=== PATIENT | male | born 1940 | race Caucasian/White ===

== ENCOUNTER 2016-07-03 12:30 | Inpatient (IN) | payer MEDICARE ==
[2016-07-03] MEDS ORDERED: oxyCODONE/Acetamin 5/325 MG* TAB PO ONE (15:55)
[2016-07-03] MEDS: NS 0.9% 1000 ML* 1,000 ML IV SCH ×2 (15:59→20:08)
[2016-07-03 16:10] LABS: Hematocrit 47 % (42-52); Hemoglobin 15.4 g/dl (14.0-18.0); Mean Corpuscular HGB Conc 33 g/dl (31-36); Mean Corpuscular Hemoglobin 30 pg (27-31); Mean Corpuscular Volume 91 fL (80-94); Mean Platelet Volume 7 um3 (7.4-10.4); Red Blood Count 5.15 10^6/ul (4.0-5.4); Red Cell Distribution Width 14 % (10.5-15); White Blood Count 10.5 10^3/ul (3.5-10.8)
--- NOTE | 2016-07-03 16:13 | RAD ---
HISTORY: Weakness COMPARISONS: CT dated February 18, 2016 VIEWS:1: Single frontal portable view of the chest at 3:46 PM FINDINGS: LINES AND TUBES: None. CARDIOMEDIASTINAL SILHOUETTE: The cardiomediastinal silhouette is normal for portable technique. PLEURA: The costophrenic angles are sharp. No pleural abnormalities are noted. LUNG PARENCHYMA: There is hyperinflation, with emphysematous changes. ABDOMEN: The upper abdomen is clear. There is no subphrenic gas. BONES AND SOFT TISSUES: No bone or soft tissue abnormalities are noted. IMPRESSION: EMPHYSEMA. NO ACTIVE CARDIOPULMONARY DISEASE.
--- NOTE | 2016-07-03 16:16 | RAD ---
Indication: Pain post fall. Comparison: January 22, [address] Technique: Internal and external rotation AP and scapular Y views RIGHT shoulder Report: Bone density appears decreased throughout. Mild spurring at the inferior margin of the acromion. No fracture evident. Normal acromioclavicular and glenohumeral joint alignment. Unremarkable soft tissue contours. IMPRESSION: No traumatic injury evident.
[2016-07-03 16:25] LABS: Albumin 4.4 g/dL (3.2-5.2); BUN/Creatinine Ratio 18.5 (8-20); C Reactive Protein 1.95 mg/L (< 5.00); Calcium 10.2 mg/dL (8.6-10.3); EGFR African American 119.8 (>60); EGFR Non-African American 93.2 (>60); Magnesium 1.9 mg/dL (1.9-2.7); Potassium 4.3 mmol/L (3.5-5.0); Total Bilirubin 0.7 mg/dL (0.2-1.0); Total Protein 7.4 g/dL (6.4-8.9)
--- NOTE | 2016-07-03 16:38 | RAD ---
HISTORY: Generalized weakness COMPARISONS: None TECHNIQUE: Multiple contiguous axial CT scans were obtained of the head without intravenous contrast. FINDINGS: HEMORRHAGE/INFARCT: There is no hemorrhage or acute infarct. MASSES/SHIFT: There is no mass or shift. EXTRA-AXIAL SPACES: There are no extra-axial fluid collections. SULCI AND VENTRICLES: The sulci and ventricles are normal in size and position for the patient's stated age. CEREBRUM: There are no focal parenchymal abnormalities. BRAINSTEM: There are no focal parenchymal abnormalities. CEREBELLUM: There are no focal parenchymal abnormalities. 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 There is calcification of the cavernous segments of internal carotid arteries bilaterally. PARANASAL SINUSES: The paranasal sinuses are clear. ORBITS: The orbits are unremarkable. BONES AND SOFT TISSUE: No bone or soft tissue abnormalities are noted. OTHER: None IMPRESSION: NO ACUTE INTRACRANIAL PATHOLOGY.
[2016-07-03] MEDS ORDERED: Albuterol HFA INHALER* 8 gm MDI INH PRN (17:15)
--- NOTE | 2016-07-03 17:21 | ADMNOTE ---
Subjective Date of Service: 07/03/16 Interval History: ADMISSION HISTORY AND PHYSICAL EXAM: Allergies Allergy/AdvReac Type Severity Reaction Status Date / Time No Known Allergies Allergy Verified 07/03/16 15:07 Home Medications Medication Instructions Recorded Confirmed Type Albuterol HFA INHALER* [Ventolin 2 puff INH Q4H PRN 07/03/16 07/03/16 History HFA Inhaler*] Aspirin EC Low Dose* [Ecotrin EC 81 mg PO DAILY 07/03/16 07/03/16 History Low Dose 81 MG*] Cholecalciferol [Vitamin D-3] 2,000 unit PO DAILY 07/03/16 07/03/16 History Metoprolol Succinate XL TAB* 25 mg PO DAILY 07/03/16 07/03/16 History [Toprol XL TAB*] Omeprazole CAP* [Prilosec CAP* 20 20 mg PO DAILY 07/03/16 07/03/16 History MG] Pravastatin (NF) [Pravachol (NF)] 40 mg PO BEDTIME 07/03/16 07/03/16 History Tiotropium CAP.INH* [Spiriva 1 cap.inh INH DAILY 07/03/16 07/03/16 History CAP.INH*] HPI: The patient was in his usual health until about 10 days ago when he had dysuria and was diagnosed with a UTI. HE was prescribed TMP-SMX which he took for about 5 days. On 06/28/16 he awlike and was very weak in his legs. He called his PCP who told him to go to th ED> He was able to wlak the very short distance to his car and his drove him to the ED. There were no significant abnomalities on lab testing and he was discharge home. There has been no change in his weakness since then. No pain. Family History: Findings - unremarkable. Social History: Findings - Smoker. 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 Lives with his who is his SDM. 5 children. Past Medical History: Findings - Melanom L ear and L lung, both resected 2010. SBO surgery x 2. Prostate bx x 2. Review of Systems - Measurements Intake and Output: Intake and Output Last 24 Hours 07/01/16 07/02/16 07/03/16 07/04/16 06:59 06:59 06:59 06:59 Weight 131 lb - Review of Systems Constitutional Symptoms: Positive: Weight Loss - Lost 5 lbs in 2016, stayed the same weight this year. Dermatology: Positive: Normal HEENT: Positive: Normal Eyes: Positive: Normal Thyroid: Positive: Normal Pulmonary: Positive: COPD Cardiology: Positive: Normal Gastroenterology: Positive: Normal Genital - Urinary: Positive: Other - High PSA in past Hematologic/Lymphatic: Negative: Anemia, Easy Brusing, Hx Leukemia, Hx Lymphoma, Use of Anticoagulant, Use of Antiplatelet Drugs, Other Neurology: Positive: Change in Walking, Unexplained Weakness Psychiatry: Positive: Normal Allergic/Immunologic: Negative: Hx Anaphylaxis, Hx Angioedema, Hx Environmental, Hx Seasonal, Athsma, Hx HIV, Immunocompromise, Swollen Glands LymphNodes, Other Objective Active Medications: Albuterol (Ventolin Hfa Inhaler*) 2 puff INH Q4H PRN PRN Reason: SHORTNESS OF BREATH Aspirin (Aspirin Ec Low Dose*) 81 mg PO DAILY [facility] Sodium Chloride (Ns 0.9% 1000 Ml*) 1,000 mls @ 150 mls/hr IV PER RATE [facility] Last Admin: 07/03/16 15:59 Dose: 150 mls/hr Metoprolol Succinate (Toprol Xl Tab*) 25 mg PO DAILY [facility] Omeprazole (Prilosec Cap*) 20 mg PO DAILY [facility] Pravastatin Sodium (Pravachol (Nf)) 40 mg PO BEDTIME [facility] PRN Reason: Protocol Tiotropium [place] (Spiriva Cap.Inh*) cap INH DAILY [facility] Vital Signs 07/03/16 07/03/16 07/03/16 12:36 12:41 14:35 Temperature 98.0 F 98.2 F 98.8 F Pulse Rate 101 100 85 Respiratory 20 20 18 Rate Blood Pressure 136/69 136/69 110/68 (mmHg) O2 Sat by Pulse 98 98 100 Oximetry 07/03/16 07/03/16 07/03/16 15:03 15:05 15:30 Temperature Pulse Rate 88 94 Respiratory 16 Rate Blood Pressure 144/76 126/79 (mmHg) O2 Sat by Pulse 97 98 Oximetry 07/03/16 07/03/16 15:59 16:00 Temperature Pulse Rate Respiratory 18 23 Rate Blood Pressure 129/102 (mmHg) O2 Sat by Pulse Oximetry Oxygen Devices in Use Now: None Appearance: Alert, partly up on ED stretcher. In good spirits. Looks comfortable. Eyes: No Scleral Icterus Ears/Nose/Mouth/Throat: Clear Oropharnyx, Mucous Membranes Moist Neck: NL Appearance and Movements; NL JVP, No Thyroid Enlargement, Masses Respiratory: Symmetrical Chest Expansion and Respiratory Effort, Clear to Auscultation, Clear to Percussion Cardiovascular: NL Sounds; No Murmurs; No JVD, RRR, No Edema, - Abdominal: NL Sounds; No Tenderness; No Distention, No Hepatosplenomegaly, - Extremities: No Edema, No Clubbing, Cyanosis, - - RUE very painful with passive ROM Skin: No Rash or Ulcers, No Nodules or Sclerosis, - Neurological: Alert and Oriented x 3, NL Sensation, - - He can raise each leg off the bed weakly. Foot flexion and dorsiflexion 4/5. Hand brim stitcher both 4/5. No DTR's elciited. Result Diagrams: 07/04/16 04:54 07/04/16 04:54 Assess/Plan/Problems-Billing Assessment: - Patient Problems (1) Paraplegia Current Visit: Yes Status: Acute Code(s): G82.20 - PARAPLEGIA, UNSPECIFIED SNOMED Code(s): 70765949 Comment: Discussed with Dr. 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 IG started. Tests for MG, Lyme ordered. LP planned. (2) Tobacco abuse Current Visit: Yes Status: Acute Code(s): Z72.0 - TOBACCO USE SNOMED Code( s): 003196397 Comment: Pt advised to quit smoking and avoid second hand smoke. (3) Hx of melanoma of skin Current Visit: Yes Status: Acute Code(s): Z85.820 - PERSONAL HISTORY OF MALIGNANT MELANOMA OF SKIN SNOMED Code(s): 879771445409 Comment: Lung met surgically removed 6 yrs ago.
[2016-07-03 17:22] LABS: Erythrocyte Sed Rate 11 mm/Hr (0-40)
[2016-07-03 17:26] LABS: TSH (Thyroid Stimulating Horm) 0.91 mcIU/mL (0.34-5.60)
--- NOTE | 2016-07-03 17:26 | ED ---
Aida Wolf Anna, scribed for Riley Adams MD on 07/03/16 at 1527 . Complex/Multi-Sys Presentation - HPI Summary HPI Summary: Patient is a 76 y/o male coming to [facility] presenting with constant bilateral leg and arm weakness that began six days ago. He describes the severity of his symptoms as 8/10. He had been taking Bactrim for a UTI and Statin, but after three days, he felt weak and fell down after mowing the lawn and stopped taking the Abx. This was five days ago. He saw his PCP and had an EKG and blood test three days ago with no acute diagnosis. His PCP sent an order for a brain CT, but he has not had one completed yet. He hurt his right shoulder two days ago when he was playing with his dog. He has had some pain in his eyes, along with blurred vision. He is SOB at baseline. Denies rash, fever, neck weakness, CASTRO. He does not feel like he is able to ambulate normally. The pain is not alleviated by the use of ibuprofen. He has taken Percocet before. His history is significant for melanoma and lung CA six years ago. Patient medications have been reviewed this visit. - History Of Current Complaint Chief Complaint: EDWeakness Time Seen by Provider: 07/03/16 15:18 Hx Obtained From: Patient Onset/Duration: Lasting Days, Still Present Severity Currently: Moderate Severity Initially: Moderate Associated Signs And Symptoms: Positive: Weakness, SOB. Negative: Headache, Fever - Allergies/Home Medications Allergies/Adverse Reactions: Allergies Allergy/AdvReac Type Severity Reaction Status Date / Time No Known Allergies Allergy Verified 07/03/16 15:07 Home Medications: Home Medications Albuterol HFA INHALER* [Ventolin HFA Inhaler*] 2 puff INH Q4H PRN 07/03/16 [ History Confirmed 07/03/16] Aspirin EC Low Dose* [Ecotrin EC Low Dose 81 MG*] 81 mg PO DAILY 07/03/16 [ History Confirmed 07/03/16] Cholecalciferol [Vitamin D-3] 2,000 unit PO DAILY 07/03/16 [History Confirmed ] Metoprolol Succinate XL TAB* [Toprol XL TAB*] 25 mg PO DAILY 07/03/16 [History Confirmed 07/03/16] Omeprazole CAP* [Prilosec CAP* 20 MG] 20 mg PO DAILY 07/03/16 [History Confirmed 07/03/16] Pravastatin (NF) [Pravachol (NF)] 40 mg PO BEDTIME 07/03/16 [History Confirmed 07/03/16] Tiotropium CAP.INH* [Spiriva CAP.INH*] 1 cap.inh INH DAILY 07/03/16 [History Confirmed 07/03/16] PMH/Surg Hx/FS Hx/Imm Hx Cardiovascular History: Reports: Hx Hypercholesterolemia, Hx Hypertension Comment Only: Other Cardiovascular Problems/Disorders - pvc Respiratory History: Reports: Hx Chronic Obstructive Pulmonary Disease (COPD) GI History: Reports: Hx Gastroesophageal Reflux Disease, Other GI Disorders - SBO, volvulus - Cancer History Cancer Type, Location and Year: lung ca 2010; malignant melanoma 2009 - Surgical History Surgery Procedure, Year, and Place: left ear/left knee/twisted colon-resection SX/left upper lung lobe removed Infectious Disease History: No Infectious Disease History: Denies: Traveled Outside the [place] in Last 30 Days - Family History Known Family History: Positive: Cardiac Disease - Hx Father CHF - Social History Occupation: Retired Lives: With Family - with Alcohol Use: None Substance Use Type: Reports: None Smoking Status (MU): Heavy Every Day Tobacco Smoker Review of Systems Negative: Fever Eyes: Other - eye pain Positive: Blurred Vision Positive: Shortness Of Breath - baseline Positive: Arthralgia Negative: Rash Positive: Weakness. Negative: Headache All Other Systems Reviewed And Are Negative: Yes Physical Exam Triage Information Reviewed: Yes Vital Signs On Initial Exam: Initial Vitals Temp Pulse Resp BP Pulse Ox 98.0 F 101 20 136/69 98 07/03/16 12:36 07/03/16 12:36 07/03/16 12:36 07/03/16 12:36 07/03/16 12:36 Vital Signs Reviewed: Yes Appearance: Positive: Well-Appearing, No Pain Distress Skin: Positive: Warm, Skin Color Reflects Adequate Perfusion, Dry Head/Face: Positive: Normal Head/Face Inspection Eyes: Positive: EOMI, KALIA ENT: Positive: Normal ENT inspection Neck: Positive: Supple, Nontender Respiratory/Lung Sounds: Positive: Clear to Auscultation, Breath Sounds Present Cardiovascular: Positive: RRR Abdomen Description: Positive: Nontender, Soft Bowel Sounds: Positive: Present Musculoskeletal: Positive: Strength/ROM Intact, Other - Tender R shoulder Neurological: Positive: Alert, Oriented to Person Place, Time, Other - Gernalized weakness in arms and legs, appears left leg worse than right leg. Tender in right shoulder so cannot lift normally. Left arm has some drift when he brings it up. Psychiatric: Positive: Affect/Mood Appropriate - Carl Coma Scale Coma Scale Total: 15 Diagnostics - Vital Signs Vital Signs Temp Pulse Resp BP Pulse Ox 07/03/16 15:05 88 97 07/03/16 15:03 144/76 07/03/16 14:35 98.8 F 85 18 110/68 100 07/03/16 12:41 98.2 F 100 20 136/69 98 07/03/16 12:36 98.0 F 101 20 136/69 98 - Laboratory Lab Results: Lab Results 07/03/16 07/03/16 07/03/16 Range/Units 10:00 10:00 10:00 WBC 10.5 (3.5-10.8) 10^3/ul RBC 5.15 (4.0-5.4) 10^6/ul Hgb 15.4 (14.0-18.0) g/dl Hct 47 (42-52) % MCV 91 (80-94) fL MCH 30 (27-31) pg MCHC 33 (31-36) g/dl RDW 14 (10.5-15) % Plt Count 447 (150-450) 10^3/ul MPV 7 L (7.4-10.4) um3 Neut % (Auto) 69.2 (38-83) % Lymph % (Auto) 21.7 L (25-47) % [place] % (Auto) 7.1 (1-9) % Eos % (Auto) 0.8 (0-6) % Baso % (Auto) 1.2 (0-2) % Absolute Neuts (auto) 7.3 (1.5-7.7) 10^3/ul Absolute Lymphs (auto) 2.3 (1.0-4.8) 10^3/ul Absolute Monos (auto) 0.7 (0-0.8) 10^3/ul Absolute Eos (auto) 0.1 (0-0.6) 10^3/ul Absolute Basos (auto) 0.1 (0-0.2) 10^3/ul Absolute Nucleated RBC 0 10^3/ul Nucleated RBC % 0 ESR 11 (0-40) mm/Hr INR (Anticoag Therapy) 0.88 L (0.89-1.11) APTT 31.7 (26.0-36.3) seconds D-Dimer, Quantitative < 200 (Less Than 230) ng/mL Sodium 134 (133-145) mmol/L Potassium 4.3 (3.5-5.0) mmol/L Chloride 100 L (101-111) mmol/L Carbon Dioxide 25 (22-32) mmol/L Anion Gap 9 (2-11) mmol/L BUN 15 (6-24) mg/dL Creatinine 0.81 (0.67-1.17) mg/dL Est GFR ( Amer) 119.8 (>60) Est GFR (Non-Af Amer) 93.2 (>60) BUN/Creatinine Ratio 18.5 (8-20) Glucose 98 (70-100) mg/dL Lactic Acid (0.5-2.0) mmol/L Calcium 10.2 (8.6-10.3) mg/dL Magnesium 1.9 (1.9-2.7) mg/dL Total Bilirubin 0.70 (0.2-1.0) mg/dL AST 18 (13-39) U/L ALT 18 (7-52) U/L Alkaline Phosphatase 41 (34-104) U/L Total Creatine Kinase 38 (10-223) U/L CK-MB (CK-2) 1.1 (0.6-6.3) ng/mL Troponin I 0.00 (<0.04) ng/mL C-Reactive Protein 1.95 (< 5.00) mg/L Total Protein 7.4 (6.4-8.9) g/dL Albumin 4.4 (3.2-5.2) g/dL Globulin 3.0 (2-4) g/dL Albumin/Globulin Ratio 1.5 (1-3) Lipase 29 (11.0-82.0) U/L Prostate Specific Ag Pending TSH Pending 07/03/16 Range/Units 10:00 WBC (3.5-10.8) 10^3/ul RBC (4.0-5.4) 10^6/ul Hgb (14.0-18.0) g/dl Hct (42-52) % MCV (80-94) fL MCH (27-31) pg MCHC (31-36) g/dl RDW (10.5-15) % Plt Count (150-450) 10^3/ul MPV (7.4-10.4) um3 Neut % (Auto) (38-83) % Lymph % (Auto) (25-47) % [place] % (Auto) (1-9) % Eos % (Auto) (0-6) % Baso % (Auto) (0-2) % Absolute Neuts (auto) (1.5-7.7) 10^3/ul Absolute Lymphs (auto) (1.0-4.8) 10^3/ul Absolute Monos (auto) (0-0.8) 10^3/ul Absolute Eos (auto) (0-0.6) 10^3/ul Absolute Basos (auto) (0-0.2) 10^3/ul Absolute Nucleated RBC 10^3/ul Nucleated RBC % ESR (0-40) mm/Hr INR (Anticoag Therapy) (0.89-1.11) APTT (26.0-36.3) seconds D-Dimer, Quantitative (Less Than 230) ng/mL Sodium (133-145) mmol/L Potassium (3.5-5.0) mmol/L Chloride (101-111) mmol/L Carbon Dioxide (22-32) mmol/L Anion Gap (2-11) mmol/L BUN (6-24) mg/dL Creatinine (0.67-1.17) mg/dL Est GFR ( Amer) (>60) Est GFR (Non-Af Amer) (>60) BUN/Creatinine Ratio (8-20) Glucose (70-100) mg/dL Lactic Acid 1.6 (0.5-2.0) mmol/L Calcium (8.6-10.3) mg/dL Magnesium (1.9-2.7) mg/dL Total Bilirubin (0.2-1.0) mg/dL AST (13-39) U/L ALT (7-52) U/L Alkaline Phosphatase (34-104) U/L Total Creatine Kinase (10-223) U/L CK-MB (CK-2) (0.6-6.3) ng/mL Troponin I (<0.04) ng/mL C-Reactive Protein (< 5.00) mg/L Total Protein (6.4-8.9) g/dL Albumin (3.2-5.2) g/dL Globulin (2-4) g/dL Albumin/Globulin Ratio (1-3) Lipase (11.0-82.0) U/L Prostate Specific Ag TSH Result Diagrams: 07/03/16 10:00 07/03/16 10:00 Lab Statement: Any lab studies that have been ordered have been reviewed, and results considered in the medical decision making process. - Radiology R shoulder XR Xray Interpretation: No Acute Changes Radiology Interpretation Completed By: Radiologist - IMPRESSION: No traumatic injury evident. CXR Xray Interpretation: No Acute Changes Radiology Interpretation Completed By: Radiologist - IMPRESSION: EMPHYSEMA. NO ACTIVE CARDIOPULMONARY DISEASE. - CT Brain CT CT Interpretation: No Acute Changes CT Interpretation Completed By: Radiologist - IMPRESSION: NO ACUTE INTRACRANIAL PATHOLOGY. - EKG 1715 Cardiac Rate: NL - 90 bpm EKG Rhythm: Sinus Rhythm ST Segment: Normal EKG Interpretation: PACs Re-Evaluation - Re-Evaluation First Eval Re-Evaluation Time: 16:58 Comment: Discussed results and plan of care with patient. Patient is agreeable with plan. Complex Multi-Symp Course/Dx Course Of Treatment: NO CRITICAL CARE TIME Assessment/Plan: ADMIT HOSPITALIST STABLE. - Diagnoses Provider Diagnoses: Weakness, Shoulder pain, right Discharge - Discharge Plan Condition: Stable Disposition: ADMITTED TO [facility] Referrals: Surekha Trinidad BARREL RIFLER HOOK [Primary Care Provider] - The documentation as recorded by the Aida barboza Anna accurately reflects the service I personally performed and the decisions made by me, Riley Adams MD.
[2016-07-03] MEDS ORDERED: Enoxaparin(*) 40 MG/0.4 ML SYR SUBCUT SCH (18:00)
[2016-07-03] MEDS ORDERED: Spiriva Inhaler DEVICE* 1 EACH DEVICE INH ONE (18:00)
[2016-07-03] MEDS ORDERED: IMMUNE GLOBULN IV SCH (19:00)
[2016-07-03] MEDS: oxyCODONE/Acetamin 5/325 MG* TAB PO PRN ×3 (20:16→23:52)
[2016-07-03] MEDS ORDERED: Atorvastatin* 10 MG TAB PO SCH (21:00)
--- NOTE | 2016-07-03 21:15 | CONS ---
NEUROLOGY CONSULTATION: DATE OF CONSULTATION: 07/03/16 LOCATION: He is in the emergency room to be admitted. REFERRING PROVIDER: Dr. Rodriguez. CHIEF COMPLAINT: Weakness. HISTORY OF PRESENT ILLNESS: Gregory Valdovinos is a 76-year-old right handed man who was in his usual state of health last Thursday when he woke up and noticed numbness and tingling in his hands. Over the course of the day, he felt like his legs and hands were getting weak. By the end of the day or perhaps the following day, he was getting numbness and tingling in his feet. He had felt fine the day before and in fact, had mowed the lawn. Over the course of the next several days he got weaker and weaker. He started using a cane. He did not fall, but he felt very unsteady. He ultimately presented to the emergency room today. He denies shortness of breath or difficulty swallowing. He denies difficulty emptying his bladder or lightheadedness or faints. He was sick at the week prior to onset of symptoms with what felt like a urinary tract infection. He was treated with sulfa antibiotics as an outpatient. He was also sick the week before that with an upper respiratory infection which he and his think was probably viral. There is no history of recent immunizations or surgeries. There is no prior history of weakness or numbness in his limbs. PAST MEDICAL HISTORY: Notable for adenocarcinoma of the lung treated with resection and followed for 6 years without evidence of recurrent disease. He has pretty bad COPD and pulmonary hypertension from prior records. He is a recovering alcoholic, having not drunk in many years. He is an ongoing tobacco smoker. He has been evaluated for chest pain and felt to have pericarditis. MEDICATIONS AT HOME: 1. Pravastatin 40 mg p.o. daily. 2. Metoprolol XL 25 mg p.o. daily. 3. Vitamin D3 2000 units p.o. daily. 4. Prilosec 20 mg p.o. daily. 5. Spiriva cap 1 p.o. daily. 6. Albuterol inhaler 2 puffs q.4 h. p.r.n. shortness of breath. 7. Aspirin 81 mg p.o. daily. ALLERGIES: He does not have any drug allergies. REVIEW OF SYSTEMS: Notable for recent injury to his shoulder when he was having a tugging match with his dog and fell on it. Shoulder x-ray earlier today was normal. He feels his breathing is about what he usually is. He does not exercise much. He drinks Ensure to keep his weight up and that has been a chronic problem. He has not had any fevers, sweats or chills. He has not had any change in bowel function. He normally feels steady on his feet until the last 5 to 6 days with the onset of this new syndrome. No recent history of head trauma, but he had head trauma as a child. He had a crush injury to his left foot when a car fell on it when he was a youth. PHYSICAL EXAM: He is very thin, but reasonably well hydrated. Temperature 99.1 temporally, blood pressure 130/78, heart rate is in the 80s and in sinus on the monitor, respiratory rate is 18, oxygen saturation is 98% on room air. He has kyphoscoliosis. Lungs reveal diffuse wheezes. Distant heart tones are heard and I do not hear any murmurs. Carotid pulses are present and there are no cervical bruits. Oral mucosa is moist and atraumatic. He has a partial fusion of the left ankle. There is no pedal edema. Head is atraumatic. Neurologic Exam: Pupils, fundi, and eye movements are normal. Visual lloyd are full to confrontation. There is no ptosis. Facial musculature is symmetric and strong. Eye closure strength is normal. Facial sensation to light touch is normal. Palate and tongue appear normal. Speech is clear. He has a pretty good cough. Palate rises symmetrically. Motor exam reveals strength limited about the right shoulder due to pain. He is not able to abduct it because of pain. Strength is otherwise rated left deltoid 4+, biceps 4/4-, triceps 4-/4, wrist extensors 4/4, finger flexors 5/5, finger extensors 4-/4, hip flexors 4/4-, quads 5/5, hamstrings 4/4, plantar flexors 4+/5-. Sensory exam is notable for absent vibration in the toes, to normal at the ankles. He has mild vibratory loss in the fingers. He has diminished proprioceptive sensation in the right great toe, to a lesser extent the left great toe. He has diminished pin discrimination to just above the ankles bilaterally. Light touch is absent in the feet to the mid feet. Reflexes are absent in upper extremities, absent at the right knee, grade 1 at the left knee. Ankle reflexes are absent. Plantar responses are flexor bilaterally. There is no spasticity in the legs. [id number] maneuver is limited because of his pain in his shoulder, but seems otherwise normal. He is alert and oriented and a good detailed historian. Memory seems intact and language is fluent. He has good attention, concentration, and adequate fund of knowledge. DIAGNOSTIC STUDIES/LAB DATA: Includes a CBC from 07/03/16 which is normal. Sedimentation rate 11. INR low normal at 0.88, PTT 31.7, D-dimer less than 200. Chemistry profile notable for chloride of 100 and otherwise unremarkable. Lactic acid 1.6. PSA elevated at 28.09. TSH normal at 0.91. Magnesium, calcium, and sodium are all normal. He had a CT of the brain which I reviewed and which looks normal. Chest x-ray reveals severe emphysematous changes. 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 I will need a spinal tap to look for the typical protein and cell dissociation. I think that can wait till tomorrow. I would like to start him on IVIg tonight. He weighs 130 pounds, so at 2 g/kg, I calculate a total of 120 g. We will distribute it over 3 days at 40 g per day. I have alerted Pharmacy to get it started as soon as possible. I will plan on doing electrodiagnostic studies on him tomorrow afternoon. I will check a peripheral blood for Lyme and myasthenia gravis antibodies and also plan to check spinal fluid studies depending upon the results of the cell count proteins. I have discussed my impression with Braxton Dumont, he is covering for Dr. Rodriguez this evening. He will be admitted to intensive care unit and have a bedside spirometry every 4 hours. He should be checked for postvoid residuals and urinary retention. He should also have his cardiac rhythm and blood pressure monitored closely at least for the next few days. I have explained my impression to Mr. Valdovinos and his . I have explained the importance of admission for intravenous immunoglobulin therapy. I told that in some cases, patients progressively become severely weak such that they cannot walk or breathe and require mechanical ventilation. At this point 5 to 6 days out, it seems unlikely but remains a possibility. [id number]/[facility] #: [id number] MORAIMA
[2016-07-03] MEDS: Gabapentin CAP(*) 100 MG PO SCH (21:54)
[2016-07-03] MEDS ORDERED: Ondansetron INJ* 2 MG/ML VIAL ONE (23:42)
[2016-07-03] MEDS: Ondansetron INJ* 2 MG/ML VIAL IV PRN (23:46)
[2016-07-04] MEDS ORDERED: PROCHLORPERAZINE INJ 5 MG/ML 2 ML VIAL IV PRN (00:11)
[2016-07-04] MEDS: NS 0.9% 1000 ML* 1,000 ML IV SCH ×4 (00:19→23:22)
[2016-07-04] MEDS: Morphine INJ* 2 MG/ML 1 ML SYRINGE IV PRN ×4 (01:08→23:19)
[2016-07-04 05:18] LABS: Hematocrit 39 % (42-52); Hemoglobin 12.7 g/dl (14.0-18.0); Mean Corpuscular HGB Conc 33 g/dl (31-36); Mean Corpuscular Hemoglobin 30 pg (27-31); Mean Corpuscular Volume 92 fL (80-94); Mean Platelet Volume 7 um3 (7.4-10.4); Red Blood Count 4.22 10^6/ul (4.0-5.4); Red Cell Distribution Width 14 % (10.5-15); White Blood Count 8.3 10^3/ul (3.5-10.8)
[2016-07-04 05:32] LABS: BUN/Creatinine Ratio 14.5 (8-20); Calcium 8.3 mg/dL (8.6-10.3); EGFR African American 128.9 (>60); EGFR Non-African American 100.3 (>60); Potassium 4.2 mmol/L (3.5-5.0)
[2016-07-04] MEDS: PROCHLORPERAZINE INJ 5 MG/ML 2 ML VIAL ONE ×3 (06:21→08:29)
[2016-07-04] MEDS: Omeprazole CAP* 20 MG PO SCH (09:08)
[2016-07-04] MEDS: Gabapentin CAP(*) 100 MG PO SCH ×2 (09:08→22:01)
[2016-07-04] MEDS: Aspirin EC Low Dose* 81 MG TAB.EC PO SCH (09:08)
--- NOTE | 2016-07-04 09:59 | PN ---
Progress Note - Progress Note Note: Time spent on patient care over 45 minutes.
[2016-07-04] MEDS: Metoprolol Succinate XL TAB* 25 MG PO SCH (10:24)
--- NOTE | 2016-07-04 10:52 | RAD ---
Indication: Bilateral leg weakness. Poor pulses. Comparison: September 07, 2007 Technique: Physiologic assessment with segmental limb pressures and calculated ankle-brachial indices. Doppler and Pulse Volume Recording. REPORT: The right ankle brachial index is 1.03 within normal range. Normal triphasic waveforms throughout the RIGHT lower extremity. Unremarkable thigh, calf, and ankle pulse volume recordings. The left ankle brachial index is 1.08 within normal range. Unremarkable triphasic waveforms throughout the LEFT lower extremity. Unremarkable thigh, calf, and ankle pulse volume recordings. IMPRESSION: No physiologic evidence for hemodynamic significant arterial inflow disease or intrinsic stenoses within the lower extremities.
[2016-07-04] MEDS: Tiotropium CAP.INH* CAP.INH/18 MCG INH SCH (14:28)
--- NOTE | 2016-07-04 14:57 | RAD ---
INDICATION: Elevated PSA. Leg weakness. Question metastasis. History of lung cancer and melanoma. COMPARISON: September 24, 2010 PET scan. TECHNIQUE: 20.700 mCi of Tc-99m MDP were injected IV. The whole body was scanned in anterior and posterior projections approximately 2 hours after the injection. FINDINGS: Negative for suspicious increased uptake at the axial or appendicular skeleton. Minimal increased activity flanking the endplates at the lumbar sacral spine most consistent with reactive change secondary to degenerative spondylosis. LEFT forearm injection site noted. The kidneys are normal in size and position and without evidence for obstructive uropathy. IMPRESSION: No evidence for bone metastasis. CPT II: CPT II Codes: 3570F
--- NOTE | 2016-07-04 16:59 | RAD ---
HISTORY: Paraparesis COMPARISONS: None TECHNIQUE: The following sequences were obtained of the cervical spine: Sagittal T1- and T2-weighted images, sagittal STIR images, axial T2 and gradient echo images. FINDINGS: BRAIN AND SPINAL CORD: The visualized spinal cord is normal in caliber, position, and signal intensity. The visualized portion of the brain is unremarkable. The cerebellar tonsils are normal in position. ALIGNMENT: The alignment is normal. VERTEBRAL BODIES: There is multilevel anterolateral marginal osteophyte formation. There are Modic type I reactive endplate changes at C3-C4 and C5-C6. There is a persistent subdental synchondrosis. JOINTS: There is uncovertebral and facet osteoarthritis. There is osteoarthritis of the atlantoaxial articulation MUSCULATURE: Unremarkable INTERVERTEBRAL DISCS: There is diffuse loss of intervertebral disc height and T2 signal throughout the spine. AXIAL IMAGES: C2-C3: There is facet hypertrophy. There is no significant neural foraminal narrowing or central canal stenosis. C3-C4: There is a broad-based disc osteophyte complex with ligamentous and facet hypertrophy. There is severe bilateral neural foraminal narrowing. There is moderate to severe narrowing of the central canal. C4-C5: There is a broad-based disc osteophyte complex with bilateral uncovertebral and facet hypertrophy. There is ligamentous hypertrophy. There is mild narrowing of the central canal. There is mild bilateral neural foraminal narrowing. C5-C6: There is bilateral uncovertebral and facet hypertrophy. There is ligamentous hypertrophy. There is mild narrowing of the central canal. There is mild bilateral neural foraminal narrowing. C6-C7: There is a broad-based disc osteophyte convex bilateral uncovertebral and facet hypertrophy. There is severe left and moderate right neural foraminal narrowing. There is moderate to severe narrowing of the central canal. C7-T1: There is bilateral uncovertebral facet hypertrophy. There is severe bilateral neural foraminal narrowing. There is no significant central canal stenosis SOFT TISSUES: The visualized soft tissues of the neck are unremarkable. OTHER: None. IMPRESSION: 1. DEGENERATIVE DISC DISEASE AND OSTEOARTHRITIS. 2. THERE IS MODERATE TO SEVERE NARROWING OF THE CENTRAL CANAL AT C3-C4 AND C6-C7. THERE IS MILD NARROWING AT C4-C5 AND C5-C6. 3. THERE IS MULTILEVEL NEURAL FORAMINAL NARROWING DESCRIBED ABOVE
--- NOTE | 2016-07-04 17:49 | CONS ---
NEUROLOGY CONSULTATION: DATE OF CONSULT: 07/04/16 HOSPITALIST: Dr. Rodriguez. LOCATION: He is in ICU bed 6. CHIEF COMPLAINT: Weakness. INTERVAL HISTORY: Since yesterday, Mr. Valdovinos feels about the same. The difference is he has some aching pain in both legs, which started last night. He does not have headache or neck pain. He feels his weakness is about the same. MEDICATIONS: Medications are reviewed and he is on: 1. Gabapentin 100 mg p.o. b.i.d. 2. IVIG 40 g per day for 3 days for a total of 120 g. 3. Morphine 2 mg IV q. 4 p.r.n. leg pain. 4. Ondansetron 4 mg q. 4h. p.r.n. nausea. 5. Prochlorperazine 5 mg q. 6h. p.r.n. nausea. 6. Tiotropium inhaler one day. 7. Metoprolol 25 mg p.o. day. PHYSICAL EXAM: He is thin but well-hydrated. Temperature 98.4 temporal, blood pressure 115/60, heart rate in the 70s and regular, respirations most recently 19. His negative inspiratory forces remain stable and within normal limits. Lungs are clear. Neurologically, eye closure strength and eye movements are normal. Speech is soft but clear without dysarthria. There is no spasticity in the limbs. He is areflexic today. Plantar responses are flexor. Strength is rated left deltoid 4, biceps 4, triceps 4, wrist extensor 4, finger flexors 5-. He has grade 4+ right biceps and triceps weakness. He still has pain around the deltoid. Wrist extensors are at least 5- on the right. In the lower extremities he has grade 4- hip flexor weakness bilaterally, strong quadriceps, hamstrings are weak in a grade IV range. Ankle dorsiflexes are closer to 4+ to 5-. He is alert and oriented to person, place, and time. Memory is intact and language is fluent. DIAGNOSTIC STUDIES/LAB DATA: Laboratory data includes a normal CBC today other than a hemoglobin dropped to 12.7 from 15.4. Platelet count remains normal at 331. Sedimentation rate yesterday was 11. Chemistries today notable for sodium of 129 down from 134 yesterday, calcium is down to 8.3 from 10.2 yesterday. His PSA was elevated yesterday at 28.97. TSH normal at 0.91. Creatinine kinase yesterday normal at 38. He had a bone scan earlier today interpreted as normal other than some increased uptake in the lumbar spine. He had a PVR study of the lower extremity vasculature, which was normal. He had nerve conduction studies earlier today which were fairly unremarkable. 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 Some of the F waves were unreadable due to artifact, but those that were obtainable were normal. His motor distal latencies also were normal. 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 Not a 100 % certain but he appears to have 6 days of progressive weakness and sensory disturbance and he is areflexic. 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 Lumbar puncture is planned for tomorrow. He was on Lovenox and so it had to be put off, which is fine as the yield will increase if we give it another couple of days. We may need to repeat his nerve conduction studies next week if diagnosis remains uncertain. I spoke with Dr. Rodriguez and he has ordered an MRI of the cervical spine, which I agree with. Dr. Sky will be covering over the weekend and I will sign out the case to him. [id number]/[facility] #: [id number] [facility]ITAL[facility]yaan
[2016-07-04 18:18] LABS: Body Fluid Appearance Clear
[2016-07-04 18:19] LABS: BF RBC Count #1 3; BF RBC Count #2 3; BF WBC Count #1 7; BF WBC Count #2 6; Body Fluid WBC 7 /mcL; RBC counts within 6%? Yes; WBC counts within 15%? Yes
[2016-07-04 18:39] LABS: CSF Glucose 73 mg/dL (40-70)
[2016-07-04 18:53] LABS: Body Fluid Total Cells Counted 100
[2016-07-04] MEDS: IMMUNE GLOBULN IV SCH (19:13)
[2016-07-04] MEDS: Ondansetron INJ* 2 MG/ML VIAL IV PRN (19:41)
[2016-07-05] MEDS: Morphine INJ* 2 MG/ML 1 ML SYRINGE IV PRN (04:33)
--- NOTE | 2016-07-05 04:35 | PRO ---
PROCEDURE REPORT: DATE OF PROCEDURE: 07/04/16 - ROOM #[id number] PREOPERATIVE DIAGNOSIS: New-onset neuro deficits. HISTORY: I had the pleasure of seeing Mr. Gregory Valdovinos for a consultation for lumbar puncture. The patient is a 76-year-old male who presents for new onset of leg weakness. I was contacted by Dr. Rodriguez for consultation for lumbar puncture. The patient notes sudden onset of leg weakness in the setting of recent UTI. The lumbar puncture is to rule out Guillain-[place] syndrome. The patient denies use of anticoagulants at home or in the hospital. He was recently given a dose of Lovenox, but this was on 07/03/16 at 6 p.m. He has not since had any anticoagulation. He has no additional history of bleeding or clotting disorders or otherwise coagulopathies. He denies any recent fever or chills. The risks and benefits of the lumbar puncture were explained to the patient who verbalized understanding and elected to proceed. DESCRIPTION OF PROCEDURE: He was placed in a sitting position. His back was prepped and draped in the usual sterile fashion. A 25-gauge 1.5 inch needle was used to instill 3 cc of 1% plain for skin infiltration. Subsequently, a 20- gauge introducer along with a 25-gauge Pencan needle was used to access the intrathecal space. The patient tolerated the procedure well with no focal neurological deficits or subsequent paraesthesias. A total of 12 cc of CSF was aspirated from the intrathecal space and sent to the lab for further analysis. The CSF was free flowing and crystal clear in appearance. He tolerated the procedure well and his back was subsequently dressed with a Band-Aid. He was subsequently returned to his room in ICU with no further complications. His MRI of his head as well as his neck showed no major abnormalities or space- occupying lesions. [id number]/[facility] #: [id number] [facility]
[2016-07-05] MEDS: NS 0.9% 1000 ML* 1,000 ML IV SCH ×3 (06:03→21:56)
[2016-07-05] MEDS: Metoprolol Succinate XL TAB* 25 MG PO SCH (07:42)
[2016-07-05] MEDS: Aspirin EC Low Dose* 81 MG TAB.EC PO SCH (07:43)
[2016-07-05] MEDS: Omeprazole CAP* 20 MG PO SCH (07:43)
[2016-07-05] MEDS: Gabapentin CAP(*) 100 MG PO SCH ×2 (07:43→20:57)
--- NOTE | 2016-07-05 07:43 | PN ---
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 He says hand tingling has resolved, legs have some achiness and numbness vs tingling, no resp or bulbar issues. Chem ok save Na 129 (was 134 admit and last week); PSA 28 (was 9 a year ago); CBC, LFTs, cpk, tsh, esr are all ok CSF w/ 7 wbc, 3 rbc, G 73, P 93 His ncs had a modest sensory neuropathy only per d/w dr Bond, w/o any overt demyelinating features, and in the context of relatively early study timing vis a vis symptom onset, and h/o remote etoh overuse Head CT neg Mri cervical spine reviewed and has moderate c4-5 and c6-7 stenosis but no cord signal change Cxr w/ copd, bone scan and LE arterial studies neg Exam with intact eye closure, cheek puff, lip closure, tongue strength, eye movements; neck ext intact vs neck flexors 4/5 vs pain limited; limbs diffusely 4/5 (right shoulder pain/range of motion ltd) except ankle DF 5-; areflexic; vibration and touch grossly intact i/p: 76 yo with copd, remote etoh, remote melanoma (ear and lung lesions status post resection), p/w a week of progressive sensory loss, weakness and reflex loss, with onset post UTI; history, 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 rx w/ IVIG. Monitor for respiratory issues and dysautonomia, hyponatremia (may need to fluid restrict if developing SIADH). PT/OT and eval for rehab needs.
[2016-07-05] MEDS ORDERED: Acetaminophen TAB* 325 MG PO PRN (07:56)
--- NOTE | 2016-07-05 08:24 | PN ---
Subjective Date of Service: 07/05/16 Interval History: Patient states his hand tingling is gone, no other change. Family History: Findings - unremarkable. Social History: Findings - Smoker. 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 Lives with his who is his SDM. 5 children. Past Medical History: Findings - Melanom L ear and L lung, both resected 2010. SBO surgery x 2. Prostate bx x 2. Objective Active Medications: Acetaminophen (Tylenol Tab*) 650 mg PO Q4H PRN PRN Reason: TEMPERATURE OVER 102 F Albuterol (Ventolin Hfa Inhaler*) 2 puff INH Q4H PRN PRN Reason: SHORTNESS OF BREATH Aspirin (Aspirin Ec Low Dose*) 81 mg PO DAILY [facility] Last Admin: 07/05/16 07:43 Dose: 81 mg Gabapentin (Neurontin Cap(*)) 100 mg PO BID [facility] Last Admin: 07/05/16 07:43 Dose: 100 mg Sodium Chloride (Ns 0.9% 1000 Ml*) 1,000 mls @ 150 mls/hr IV PER RATE [facility] Last Admin: 07/05/16 06:03 Dose: 150 mls/hr Immune Globulin 40 gm/ IV (Solution) 800 mls @ 0 mls/hr IV 2000 [facility]; Per Protocol PRN Reason: Protocol Stop: 07/05/16 20:01 Last Admin: 07/04/16 19:13 Dose: 36 mls/hr Metoprolol Succinate (Toprol Xl Tab*) 25 mg PO DAILY [facility] Last Admin: 07/05/16 07:42 Dose: 25 mg Morphine Sulfate (Morphine Inj (Syringe)*) 2 mg IV Q4H PRN PRN Reason: PAIN - MILD Last Admin: 07/05/16 04:33 Dose: 2 mg Omeprazole (Prilosec Cap*) 20 mg PO DAILY [facility] Last Admin: 07/05/16 07:43 Dose: 20 mg Ondansetron HCl (Zofran Inj*) 4 mg IV Q4H PRN PRN Reason: NAUSEA Last Admin: 07/04/16 19:41 Dose: 4 mg Oxycodone/Acetaminophen (Percocet 5/325 Tab*) 1 tab PO Q4H PRN PRN Reason: PAIN Last Admin: 07/03/16 23:52 Dose: 1 tab Prochlorperazine Edisylate (Compazine Inj*) 5 mg IV Q6H PRN PRN Reason: NAUSEA/VOMITING Last Admin: 07/04/16 00:14 Dose: 5 mg Tiotropium Vance (Spiriva Cap.Inh*) 1 cap INH DAILY [facility] Last Admin: 07/04/16 14:28 Dose: 1 cap Vital Signs 07/04/16 07/04/16 07/04/16 10:00 10:30 11:00 Temperature Pulse Rate 73 82 71 Respiratory 15 19 14 Rate Blood Pressure 102/56 113/59 106/60 (mmHg) O2 Sat by Pulse 98 96 95 Oximetry 07/04/16 07/04/16 07/04/16 11:30 12:00 12:09 Temperature 98.4 F Pulse Rate 71 83 Respiratory 14 19 Rate Blood Pressure 107/57 123/59 (mmHg) O2 Sat by Pulse 93 98 Oximetry 07/04/16 07/04/16 07/04/16 12:30 13:00 14:20 Temperature Pulse Rate 75 75 Respiratory 16 14 11 Rate Blood Pressure 115/60 114/61 (mmHg) O2 Sat by Pulse 97 97 Oximetry 07/04/16 07/04/16 07/04/16 14:25 14:30 15:00 Temperature Pulse Rate 91 79 Respiratory 19 20 14 Rate Blood Pressure 103/58 97/48 (mmHg) O2 Sat by Pulse 94 96 Oximetry 07/04/16 07/04/16 07/04/16 15:30 15:44 16:00 Temperature 99.7 F Pulse Rate 84 72 Respiratory 18 14 Rate Blood Pressure 103/53 98/51 (mmHg) O2 Sat by Pulse 95 97 Oximetry 07/04/16 07/04/16 07/04/16 17:00 17:04 17:07 Temperature Pulse Rate 84 Respiratory 16 20 Rate Blood Pressure 116/68 (mmHg) O2 Sat by Pulse 93 Oximetry 07/04/16 07/04/16 07/04/16 17:30 18:00 18:30 Temperature Pulse Rate 83 81 78 Respiratory 18 20 18 Rate Blood Pressure 112/61 111/59 112/55 (mmHg) O2 Sat by Pulse 96 94 92 Oximetry 07/04/16 07/04/16 07/04/16 19:00 19:16 19:30 Temperature Pulse Rate 83 87 79 Respiratory 20 18 19 Rate Blood Pressure 118/68 107/62 111/58 (mmHg) O2 Sat by Pulse 94 98 96 Oximetry 07/04/16 07/04/16 07/04/16 19:32 19:33 19:45 Temperature 99.5 F Pulse Rate 85 Respiratory 21 18 Rate Blood Pressure 107/59 (mmHg) O2 Sat by Pulse 96 Oximetry 07/04/16 07/04/16 07/04/16 20:00 20:15 20:30 Temperature Pulse Rate 79 78 78 Respiratory 13 13 14 Rate Blood Pressure 105/58 113/51 110/53 (mmHg) O2 Sat by Pulse 91 94 90 Oximetry 07/04/16 07/04/16 07/04/16 20:45 21:00 21:15 Temperature Pulse Rate 76 74 74 Respiratory 14 14 14 Rate Blood Pressure 109/51 110/57 110/54 (mmHg) O2 Sat by Pulse 96 98 99 Oximetry 07/04/16 07/04/16 07/04/16 21:30 22:00 22:30 Temperature Pulse Rate 75 85 79 Respiratory 13 19 15 Rate Blood Pressure 110/57 115/66 112/53 (mmHg) O2 Sat by Pulse 98 97 94 Oximetry 07/04/16 07/04/16 07/04/16 23:00 23:19 23:30 Temperature Pulse Rate 73 98 84 Respiratory 16 21 19 Rate Blood Pressure 119/52 108/57 (mmHg) O2 Sat by Pulse 97 96 95 Oximetry 07/04/16 07/05/16 07/05/16 23:57 00:00 00:01 Temperature 99.2 F Pulse Rate 74 75 Respiratory 14 15 Rate Blood Pressure 113/56 (mmHg) O2 Sat by Pulse 96 96 Oximetry 07/05/16 07/05/16 07/05/16 00:30 01:00 01:30 Temperature Pulse Rate 78 74 72 Respiratory 19 15 14 Rate Blood Pressure 120/54 122/56 116/62 (mmHg) O2 Sat by Pulse 99 100 100 Oximetry 07/05/16 07/05/16 07/05/16 02:00 02:30 03:00 Temperature Pulse Rate 74 76 75 Respiratory 14 16 15 Rate Blood Pressure 118/57 122/56 117/59 (mmHg) O2 Sat by Pulse 100 100 100 Oximetry 07/05/16 07/05/16 07/05/16 03:30 03:31 04:00 Temperature 100.0 F Pulse Rate 77 78 Respiratory 15 15 Rate Blood Pressure 116/62 119/59 (mmHg) O2 Sat by Pulse 99 99 Oximetry 07/05/16 07/05/16 07/05/16 04:30 04:33 05:00 Temperature Pulse Rate 89 82 Respiratory 17 18 14 Rate Blood Pressure 117/62 113/54 (mmHg) O2 Sat by Pulse 97 93 Oximetry 07/05/16 07/05/16 07/05/16 05:30 06:00 06:30 Temperature Pulse Rate 80 85 80 Respiratory 14 15 17 Rate Blood Pressure 114/54 112/59 114/58 (mmHg) O2 Sat by Pulse 94 92 93 Oximetry 07/05/16 07:25 Temperature 101.4 F Pulse Rate Respiratory Rate Blood Pressure (mmHg) O2 Sat by Pulse Oximetry Oxygen Devices in Use Now: None Appearance: Alert, partly up in bed. In good spirits. Looks comfortable. Eyes: No Scleral Icterus Neck: NL Appearance and Movements; NL JVP, No Thyroid Enlargement, Masses Extremities: No Edema, No Clubbing, Cyanosis, - Skin: No Rash or Ulcers, No Nodules or Sclerosis, - Neurological: Alert and Oriented x 3, NL Sensation, - - UE and LE strength about 4/5. No tremor. Result Diagrams: 07/04/16 04:54 07/04/16 04:54 Additional Lab and Data: Lab Results 07/03/16 07/03/16 07/03/16 Range/Units 10:00 10:00 10:00 WBC 10.5 (3.5-10.8) 10^3/ul RBC 5.15 (4.0-5.4) 10^6/ul Hgb 15.4 (14.0-18.0) g/dl Hct 47 (42-52) % MCV 91 (80-94) fL MCH 30 (27-31) pg MCHC 33 (31-36) g/dl RDW 14 (10.5-15) % Plt Count 447 (150-450) 10^3/ul MPV 7 L (7.4-10.4) um3 Neut % (Auto) 69.2 (38-83) % Lymph % (Auto) 21.7 L (25-47) % [place] % (Auto) 7.1 (1-9) % Eos % (Auto) 0.8 (0-6) % Baso % (Auto) 1.2 (0-2) % Absolute Neuts (auto) 7.3 (1.5-7.7) 10^3/ul Absolute Lymphs (auto) 2.3 (1.0-4.8) 10^3/ul Absolute Monos (auto) 0.7 (0-0.8) 10^3/ul Absolute Eos (auto) 0.1 (0-0.6) 10^3/ul Absolute Basos (auto) 0.1 (0-0.2) 10^3/ul Absolute Nucleated RBC 0 10^3/ul Nucleated RBC % 0 ESR 11 (0-40) mm/Hr INR (Anticoag Therapy) 0.88 L (0.89-1.11) APTT 31.7 (26.0-36.3) seconds D-Dimer, Quantitative < 200 (Less Than 230) ng/mL Sodium 134 (133-145) mmol/L Potassium 4.3 (3.5-5.0) mmol/L Chloride 100 L (101-111) mmol/L Carbon Dioxide 25 (22-32) mmol/L Anion Gap 9 (2-11) mmol/L BUN 15 (6-24) mg/dL Creatinine 0.81 (0.67-1.17) mg/dL Est GFR ( Amer) 119.8 (>60) Est GFR (Non-Af Amer) 93.2 (>60) BUN/Creatinine Ratio 18.5 (8-20) Glucose 98 (70-100) mg/dL Lactic Acid (0.5-2.0) mmol/L Calcium 10.2 (8.6-10.3) mg/dL Magnesium 1.9 (1.9-2.7) mg/dL Total Bilirubin 0.70 (0.2-1.0) mg/dL AST 18 (13-39) U/L ALT 18 (7-52) U/L Alkaline Phosphatase 41 (34-104) U/L Total Creatine Kinase 38 (10-223) U/L CK-MB (CK-2) 1.1 (0.6-6.3) ng/mL Troponin I 0.00 (<0.04) ng/mL C-Reactive Protein 1.95 (< 5.00) mg/L Total Protein 7.4 (6.4-8.9) g/dL Albumin 4.4 (3.2-5.2) g/dL Globulin 3.0 (2-4) g/dL Albumin/Globulin Ratio 1.5 (1-3) Lipase 29 (11.0-82.0) U/L Prostate Specific Ag Pending TSH Pending 07/03/16 Range/Units 10:00 WBC (3.5-10.8) 10^3/ul RBC (4.0-5.4) 10^6/ul Hgb (14.0-18.0) g/dl Hct (42-52) % MCV (80-94) fL MCH (27-31) pg MCHC (31-36) g/dl RDW (10.5-15) % Plt Count (150-450) 10^3/ul MPV (7.4-10.4) um3 Neut % (Auto) (38-83) % Lymph % (Auto) (25-47) % [place] % (Auto) (1-9) % Eos % (Auto) (0-6) % Baso % (Auto) (0-2) % Absolute Neuts (auto) (1.5-7.7) 10^3/ul Absolute Lymphs (auto) (1.0-4.8) 10^3/ul Absolute Monos (auto) (0-0.8) 10^3/ul Absolute Eos (auto) (0-0.6) 10^3/ul Absolute Basos (auto) (0-0.2) 10^3/ul Absolute Nucleated RBC 10^3/ul Nucleated RBC % ESR (0-40) mm/Hr INR (Anticoag Therapy) (0.89-1.11) APTT (26.0-36.3) seconds D-Dimer, Quantitative (Less Than 230) ng/mL Sodium (133-145) mmol/L Potassium (3.5-5.0) mmol/L Chloride (101-111) mmol/L Carbon Dioxide (22-32) mmol/L Anion Gap (2-11) mmol/L BUN (6-24) mg/dL Creatinine (0.67-1.17) mg/dL Est GFR ( Amer) (>60) Est GFR (Non-Af Amer) (>60) BUN/Creatinine Ratio (8-20) Glucose (70-100) mg/dL Lactic Acid 1.6 (0.5-2.0) mmol/L Calcium (8.6-10.3) mg/dL Magnesium (1.9-2.7) mg/dL Total Bilirubin (0.2-1.0) mg/dL AST (13-39) U/L ALT (7-52) U/L Alkaline Phosphatase (34-104) U/L Total Creatine Kinase (10-223) U/L CK-MB (CK-2) (0.6-6.3) ng/mL Troponin I (<0.04) ng/mL C-Reactive Protein (< 5.00) mg/L Total Protein (6.4-8.9) g/dL Albumin (3.2-5.2) g/dL Globulin (2-4) g/dL Albumin/Globulin Ratio (1-3) Lipase (11.0-82.0) U/L Prostate Specific Ag TSH Assess/Plan/Problems-Billing Assessment: - Patient Problems (1) Paraplegia Current Visit: Yes Status: Acute Code(s): G82.20 - PARAPLEGIA, UNSPECIFIED SNOMED Code(s): 83227742 Comment: CSF protein elevated, c/w GBS. Continue immune globulin. NIF 60, stable or improving. OK to go to medical floor 07/05. (2) Tobacco abuse Current Visit: Yes Status: Acute Code(s): Z72.0 - TOBACCO USE SNOMED Code( s): 238756381 Comment: Pt advised to quit smoking and avoid second hand smoke. (3) Hx of melanoma of skin Current Visit: Yes Status: Acute Code(s): Z85.820 - PERSONAL HISTORY OF MALIGNANT MELANOMA OF SKIN SNOMED Code(s): 447738763382 Comment: Lung met surgically removed 6 yrs ago. (4) COPD (chronic obstructive pulmonary disease) Current Visit: Yes Status: Acute Code(s): J44.9 - CHRONIC OBSTRUCTIVE PULMONARY DISEASE, UNSPECIFIED SNOMED Code(s): 46603084 Comment: O2 sat 88% on RA 07/05. (5) Elevated PSA Current Visit: Yes Status: Acute Comment: Discussed with Dr. Aragon 07/04. Bone scan neg. Needs outpt fup.
[2016-07-05] MEDS: Tiotropium CAP.INH* CAP.INH/18 MCG INH SCH (11:12)
[2016-07-05] MEDS: IMMUNE GLOBULN IV SCH (22:22)
[2016-07-06] MEDS: Morphine INJ* 2 MG/ML 1 ML SYRINGE IV PRN ×2 (06:13→21:48)
[2016-07-06] MEDS: Aspirin EC Low Dose* 81 MG TAB.EC PO SCH (07:24)
[2016-07-06] MEDS: Metoprolol Succinate XL TAB* 25 MG PO SCH (07:24)
[2016-07-06] MEDS: Gabapentin CAP(*) 100 MG PO SCH ×2 (07:24→21:47)
[2016-07-06] MEDS: Omeprazole CAP* 20 MG PO SCH (07:24)
--- NOTE | 2016-07-06 07:45 | PN ---
Progress Note - Progress Note SOAP: 07/06/16 neurology follow up note 76 yo with copd, remote etoh, melanoma (ear and lung lesions status post resection), p/w a week of progressive sensory loss, weakness and reflex loss, with onset post UTI, rx w/ IVIG for GBS; no resp or bulbar issues; no diplopia, feels leg weakness better ,especially right leg, no signif sensory symptoms. moved to floors; no dysautonomia. 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 Monitor for respiratory issues and dysautonomia, hopefully at this point past al and will start to improve motor suero. worth repeating chem to assess for hyponatremia (may need to fluid restrict if developing SIADH, which occurs in about 1/4 of GBS cases). PT/OT and eval for rehab needs.
[2016-07-06 07:46] LABS: BUN/Creatinine Ratio 9.7 (8-20); Calcium 8.1 mg/dL (8.6-10.3); EGFR African American 137.2 (>60); EGFR Non-African American 106.7 (>60); Potassium 3.5 mmol/L (3.5-5.0)
[2016-07-06] MEDS: Tiotropium CAP.INH* CAP.INH/18 MCG INH SCH (07:56)
[2016-07-06] MEDS: guaiFENesin ER TAB 600 MG PO SCH ×2 (11:35→21:47)
--- NOTE | 2016-07-06 13:28 | PN ---
Subjective Date of Service: 07/06/16 Interval History: HOSPITALIST PROGRESS NOTE Patient seen and examined at bedside. He feels better today. Thinks he's making a lot of progress, can bend his knees , was able to lift his right hand to shake my hand. Family History: Unchanged from Admission Social History: Unchanged from Admission Past Medical History: Unchanged from Admission Objective Active Medications: Acetaminophen (Tylenol Tab*) 650 mg PO Q4H PRN PRN Reason: TEMPERATURE OVER 102 F Albuterol (Ventolin Hfa Inhaler*) 2 puff INH Q4H PRN PRN Reason: SHORTNESS OF BREATH Aspirin (Aspirin Ec Low Dose*) 81 mg PO DAILY [facility] Last Admin: 07/06/16 07:24 Dose: 81 mg Gabapentin (Neurontin Cap(*)) 100 mg PO BID [facility] Last Admin: 07/06/16 07:24 Dose: 100 mg Guaifenesin (Mucinex*) 600 mg PO BID [facility] Last Admin: 07/06/16 11:35 Dose: 600 mg Metoprolol Succinate (Toprol Xl Tab*) 25 mg PO DAILY [facility] Last Admin: 07/06/16 07:24 Dose: 25 mg Morphine Sulfate (Morphine Inj (Syringe)*) 2 mg IV Q4H PRN PRN Reason: PAIN - MILD Last Admin: 07/06/16 06:13 Dose: 2 mg Omeprazole (Prilosec Cap*) 20 mg PO DAILY [facility] Last Admin: 07/06/16 07:24 Dose: 20 mg Ondansetron HCl (Zofran Inj*) 4 mg IV Q4H PRN PRN Reason: NAUSEA Last Admin: 07/04/16 19:41 Dose: 4 mg Oxycodone/Acetaminophen (Percocet 5/325 Tab*) 1 tab PO Q4H PRN PRN Reason: PAIN Last Admin: 07/03/16 23:52 Dose: 1 tab Prochlorperazine Edisylate (Compazine Inj*) 5 mg IV Q6H PRN PRN Reason: NAUSEA/VOMITING Last Admin: 07/04/16 00:14 Dose: 5 mg Tiotropium [place] (Spiriva Cap.Inh*) 1 cap INH DAILY [facility] Last Admin: 07/06/16 07:56 Dose: 1 cap Vital Signs 07/06/16 07/06/16 07/06/16 06:13 07:16 07:19 Temperature 98.9 F Pulse Rate 82 Respiratory 20 16 Rate Blood Pressure 134/72 (mmHg) O2 Sat by Pulse 98 Oximetry Oxygen Devices in Use Now: Nasal Cannula Appearance: Elderly male sitting up in bed in NAD. Eyes: No Scleral Icterus Ears/Nose/Mouth/Throat: Mucous Membranes Moist Neck: Trachea Midline Respiratory: Symmetrical Chest Expansion and Respiratory Effort, - - BS+ bilaterally decreased, no added sounds Cardiovascular: RRR - Normal S1 and S2 Abdominal: NL Sounds; No Tenderness; No Distention Extremities: No Edema Neurological: Alert and Oriented x 3, - - Able to HARLEY, power 3/5 on UE and 4/5 on LE Lines/Tubes/Other Access: Clean, Dry and Intact Peripheral IV Nutrition: Taking PO's Result Diagrams: 07/04/16 04:54 07/06/16 06:57 Assess/Plan/Problems-Billing Assessment: Mr. Valdovinos is a 76yo M with PMH of COPD, tobacco abuse, remote history of ETOH abuse, prior h/o melanoma s/p resection of skin lesion and lung met, who presented with a week of sensory loss, weakness and reflex loss, with onset post UTI, suggestive of Guillain [place] syndrome. 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 - Received 3 doses of IVIG to a total of 120g. - Neuro input appreciated. - No respiratory issues at this time - NIF -50. - No signs of autonomic dysfunction at this time. - Continue to monitor PVR. - Will need rehab. Continue PT/OT as tolerated. (2) Hyponatremia Comment: - Sodium is trending up. - Continue to monitor. (3) Elevated PSA Comment: - Dr. Rodriguez discussed with Dr. Aragon 07/04. - Bone scan neg. - Needs outpatient follow up. (4) COPD (chronic obstructive pulmonary disease) Comment: - No signs of exacerbation at this time. - Good SO2 with supplemental O2. - Continue bronchodilators. (5) Hx of melanoma of skin Comment: - Ear lesion and Lung met surgically removed 6 yrs ago. (6) Tobacco abuse Comment: - Advised to quit smoking and avoid second hand smoke. (7) DVT prophylaxis Comment: - Lovenox. (8) Full code status Status and Disposition: Inpatient.
[2016-07-06] MEDS ORDERED: Enoxaparin(*) 40 MG/0.4 ML SYR SUBCUT SCH (21:00)
[2016-07-07] MEDS: oxyCODONE/Acetamin 5/325 MG* TAB PO PRN ×2 (00:36→09:13)
[2016-07-07] MEDS: Morphine INJ* 2 MG/ML 1 ML SYRINGE IV PRN (03:17)
[2016-07-07 06:45] LABS: BUN/Creatinine Ratio 14.1 (8-20); Calcium 8.6 mg/dL (8.6-10.3); EGFR African American 157.2 (>60); EGFR Non-African American 122.2 (>60); Potassium 3.5 mmol/L (3.5-5.0)
[2016-07-07] MEDS: Tiotropium CAP.INH* CAP.INH/18 MCG INH SCH (07:44)
--- NOTE | 2016-07-07 08:42 | PN ---
Progress Note - Progress Note SOAP: 07/07/16 neurology follow up note 76 yo with copd, remote etoh, melanoma (ear and lung lesions status post resection), p/w a week of progressive sensory loss, weakness and reflex loss, with onset post UTI, rx w/ IVIG for GBS. no resp or bulbar issues. oob to chair. says strength better and demonstrates by lifting arms overhead; got oob with walker yest, which he could not do few days ago. Chem ok save Na 131-2 (stable) Exam with intact eye closure, cheek puff, lip closure, tongue strength, eye movements; neck ext/flex 5/5; delts now 4, lifted overhead, bi/tri 4 tp 4+ range. hand slide attendant strong; HF 5-/4-, ankle DF 5-/5- i/p: 76 yo with copd, remote etoh, remote melanoma (ear and lung lesions status post resection), p/w a week of progressive sensory loss, weakness and reflex loss, with onset post UTI; history, 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 rx w/ IVIG. Na levels have been low melinda but stable. likely post al; clinically improving; eval for acute rehab potential.
[2016-07-07] MEDS: Gabapentin CAP(*) 100 MG PO SCH (09:12)
[2016-07-07] MEDS: Aspirin EC Low Dose* 81 MG TAB.EC PO SCH (09:12)
[2016-07-07] MEDS: Omeprazole CAP* 20 MG PO SCH (09:12)
[2016-07-07] MEDS: guaiFENesin ER TAB 600 MG PO SCH (09:13)
[2016-07-07] MEDS: Metoprolol Succinate XL TAB* 25 MG PO SCH (09:14)
[2016-07-07 09:59] VITALS: BP 152/84
--- NOTE | 2016-07-07 10:12 | PN ---
Subjective Date of Service: 07/07/16 Interval History: Patient seen and examined at bedside. Reports significant improvement in his ability to move his legs and states he was able to ambulate to the door with a walker in PT this AM. Denies SOB, chest pain. Reports getting winded easily, but states that this is not new, as he has a history of smoking. He does fatigue faster but feels as if he's getting "much better." Family History: Unchanged from Admission Social History: Unchanged from Admission Past Medical History: Unchanged from Admission Objective Active Medications: Acetaminophen (Tylenol Tab*) 650 mg PO Q4H PRN PRN Reason: TEMPERATURE OVER 102 F Last Admin: 07/07/16 05:31 Dose: 650 mg Albuterol (Ventolin Hfa Inhaler*) 2 puff INH Q4H PRN PRN Reason: SHORTNESS OF BREATH Aspirin (Aspirin Ec Low Dose*) 81 mg PO DAILY [facility] Last Admin: 07/07/16 09:12 Dose: 81 mg Enoxaparin Sodium (Lovenox(*)) 40 mg SUBCUT Q24H [facility] Last Admin: 07/06/16 21:48 Dose: 40 mg Gabapentin (Neurontin Cap(*)) 100 mg PO BID [facility] Last Admin: 07/07/16 09:12 Dose: 100 mg Guaifenesin (Mucinex*) 600 mg PO BID [facility] Last Admin: 07/07/16 09:13 Dose: 600 mg Metoprolol Succinate (Toprol Xl Tab*) 25 mg PO DAILY [facility] Last Admin: 07/07/16 09:14 Dose: 25 mg Morphine Sulfate (Morphine Inj (Syringe)*) 2 mg IV Q4H PRN PRN Reason: PAIN - MILD Last Admin: 07/07/16 03:17 Dose: 2 mg Omeprazole (Prilosec Cap*) 20 mg PO DAILY [facility] Last Admin: 07/07/16 09:12 Dose: 20 mg Ondansetron HCl (Zofran Inj*) 4 mg IV Q4H PRN PRN Reason: NAUSEA Last Admin: 07/04/16 19:41 Dose: 4 mg Oxycodone/Acetaminophen (Percocet 5/325 Tab*) 1 tab PO Q4H PRN PRN Reason: PAIN Last Admin: 07/07/16 09:13 Dose: 1 tab Prochlorperazine Edisylate (Compazine Inj*) 5 mg IV Q6H PRN PRN Reason: NAUSEA/VOMITING Last Admin: 07/04/16 00:14 Dose: 5 mg Tiotropium [place] (Spiriva Cap.Inh*) 1 cap INH DAILY [facility] Last Admin: 07/07/16 07:44 Dose: 1 cap Vital Signs 07/06/16 07/06/16 07/06/16 15:41 20:00 21:47 Temperature 98.3 F Pulse Rate 87 Respiratory 20 18 Rate Blood Pressure 129/65 (mmHg) O2 Sat by Pulse 96 Oximetry 07/06/16 07/06/16 07/06/16 21:48 22:48 23:33 Temperature 98.2 F Pulse Rate 81 Respiratory 18 20 16 Rate Blood Pressure 127/64 (mmHg) O2 Sat by Pulse 98 Oximetry 07/06/16 07/07/16 07/07/16 23:47 00:36 02:36 Temperature Pulse Rate Respiratory 20 20 20 Rate Blood Pressure (mmHg) O2 Sat by Pulse Oximetry 07/07/16 07/07/16 07/07/16 03:17 04:17 07:25 Temperature 97.0 F Pulse Rate 80 Respiratory 20 20 18 Rate Blood Pressure 152/84 (mmHg) O2 Sat by Pulse 98 Oximetry 07/07/16 07/07/16 07/07/16 07:47 09:12 09:13 Temperature Pulse Rate 81 Respiratory 16 16 16 Rate Blood Pressure (mmHg) O2 Sat by Pulse 96 Oximetry Oxygen Devices in Use Now: Nasal Cannula Appearance: Older male patient, OOB to chair, NAD Eyes: No Scleral Icterus Ears/Nose/Mouth/Throat: Mucous Membranes Moist Neck: NL Appearance and Movements; NL JVP Respiratory: Symmetrical Chest Expansion and Respiratory Effort, - - BS diminished Cardiovascular: NL Sounds; No Murmurs; No JVD, RRR Abdominal: NL Sounds; No Tenderness; No Distention Extremities: No Edema Skin: No Rash or Ulcers Neurological: Alert and Oriented x 3, - - Able to HARLEY Lines/Tubes/Other Access: Clean, Dry and Intact Peripheral IV Nutrition: Taking PO's Result Diagrams: 07/04/16 04:54 07/07/16 05:57 Additional Lab and Data: Lab Results 07/03/16 07/03/16 07/03/16 Range/Units 10:00 10:00 10:00 WBC 10.5 (3.5-10.8) 10^3/ul RBC 5.15 (4.0-5.4) 10^6/ul Hgb 15.4 (14.0-18.0) g/dl Hct 47 (42-52) % MCV 91 (80-94) fL MCH 30 (27-31) pg MCHC 33 (31-36) g/dl RDW 14 (10.5-15) % Plt Count 447 (150-450) 10^3/ul MPV 7 L (7.4-10.4) um3 Neut % (Auto) 69.2 (38-83) % Lymph % (Auto) 21.7 L (25-47) % Thayer % (Auto) 7.1 (1-9) % Eos % (Auto) 0.8 (0-6) % Baso % (Auto) 1.2 (0-2) % Absolute Neuts (auto) 7.3 (1.5-7.7) 10^3/ul Absolute Lymphs (auto) 2.3 (1.0-4.8) 10^3/ul Absolute Monos (auto) 0.7 (0-0.8) 10^3/ul Absolute Eos (auto) 0.1 (0-0.6) 10^3/ul Absolute Basos (auto) 0.1 (0-0.2) 10^3/ul Absolute Nucleated RBC 0 10^3/ul Nucleated RBC % 0 ESR 11 (0-40) mm/Hr INR (Anticoag Therapy) 0.88 L (0.89-1.11) APTT 31.7 (26.0-36.3) seconds D-Dimer, Quantitative < 200 (Less Than 230) ng/mL Sodium 134 (133-145) mmol/L Potassium 4.3 (3.5-5.0) mmol/L Chloride 100 L (101-111) mmol/L Carbon Dioxide 25 (22-32) mmol/L Anion Gap 9 (2-11) mmol/L BUN 15 (6-24) mg/dL Creatinine 0.81 (0.67-1.17) mg/dL Est GFR ( Amer) 119.8 (>60) Est GFR (Non-Af Amer) 93.2 (>60) BUN/Creatinine Ratio 18.5 (8-20) Glucose 98 (70-100) mg/dL Lactic Acid (0.5-2.0) mmol/L Calcium 10.2 (8.6-10.3) mg/dL Magnesium 1.9 (1.9-2.7) mg/dL Total Bilirubin 0.70 (0.2-1.0) mg/dL AST 18 (13-39) U/L ALT 18 (7-52) U/L Alkaline Phosphatase 41 (34-104) U/L Total Creatine Kinase 38 (10-223) U/L CK-MB (CK-2) 1.1 (0.6-6.3) ng/mL Troponin I 0.00 (<0.04) ng/mL C-Reactive Protein 1.95 (< 5.00) mg/L Total Protein 7.4 (6.4-8.9) g/dL Albumin 4.4 (3.2-5.2) g/dL Globulin 3.0 (2-4) g/dL Albumin/Globulin Ratio 1.5 (1-3) Lipase 29 (11.0-82.0) U/L Prostate Specific Ag Pending TSH Pending 07/03/16 Range/Units 10:00 WBC (3.5-10.8) 10^3/ul RBC (4.0-5.4) 10^6/ul Hgb (14.0-18.0) g/dl Hct (42-52) % MCV (80-94) fL MCH (27-31) pg MCHC (31-36) g/dl RDW (10.5-15) % Plt Count (150-450) 10^3/ul MPV (7.4-10.4) um3 Neut % (Auto) (38-83) % Lymph % (Auto) (25-47) % Thayer % (Auto) (1-9) % Eos % (Auto) (0-6) % Baso % (Auto) (0-2) % Absolute Neuts (auto) (1.5-7.7) 10^3/ul Absolute Lymphs (auto) (1.0-4.8) 10^3/ul Absolute Monos (auto) (0-0.8) 10^3/ul Absolute Eos (auto) (0-0.6) 10^3/ul Absolute Basos (auto) (0-0.2) 10^3/ul Absolute Nucleated RBC 10^3/ul Nucleated RBC % ESR (0-40) mm/Hr INR (Anticoag Therapy) (0.89-1.11) APTT (26.0-36.3) seconds D-Dimer, Quantitative (Less Than 230) ng/mL Sodium (133-145) mmol/L Potassium (3.5-5.0) mmol/L Chloride (101-111) mmol/L Carbon Dioxide (22-32) mmol/L Anion Gap (2-11) mmol/L BUN (6-24) mg/dL Creatinine (0.67-1.17) mg/dL Est GFR ( Amer) (>60) Est GFR (Non-Af Amer) (>60) BUN/Creatinine Ratio (8-20) Glucose (70-100) mg/dL Lactic Acid 1.6 (0.5-2.0) mmol/L Calcium (8.6-10.3) mg/dL Magnesium (1.9-2.7) mg/dL Total Bilirubin (0.2-1.0) mg/dL AST (13-39) U/L ALT (7-52) U/L Alkaline Phosphatase (34-104) U/L Total Creatine Kinase (10-223) U/L CK-MB (CK-2) (0.6-6.3) ng/mL Troponin I (<0.04) ng/mL C-Reactive Protein (< 5.00) mg/L Total Protein (6.4-8.9) g/dL Albumin (3.2-5.2) g/dL Globulin (2-4) g/dL Albumin/Globulin Ratio (1-3) Lipase (11.0-82.0) U/L Prostate Specific Ag TSH Assess/Plan/Problems-Billing Assessment: Mr. 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 - Patient Problems (1) Guillain Valdivia syndrome Code(s): G61.0 - GUILLAIN-BARRE SYNDROME Comment: - Improving. - Received 3 doses of IVIG to a total of 120g. - Neuro input appreciated. - No respiratory issues at this time - NIF -50. - No signs of autonomic dysfunction at this time. - Continue to monitor PVR. - Plan for PMRU - Outpatient neurology follow-up (2) Hyponatremia Code(s): E87.1 - HYPO-OSMOLALITY AND HYPONATREMIA Comment: Sodium relatively stable. Continue to trend. (3) Elevated PSA Comment: - Dr. Rodriguez discussed with Dr. Aragon 07/04. - Bone scan neg. - Needs outpatient follow up. (4) COPD (chronic obstructive pulmonary disease) Code(s): J44.9 - CHRONIC OBSTRUCTIVE PULMONARY DISEASE, UNSPECIFIED Comment: - No signs of exacerbation at this time. - Good SO2 with supplemental O2. - Continue bronchodilators. (5) Hx of melanoma of skin Code(s): Z85.820 - PERSONAL HISTORY OF MALIGNANT MELANOMA OF SKIN Comment: - Ear lesion and Lung met surgically removed 6 yrs ago. (6) Tobacco abuse Code(s): Z72.0 - TOBACCO USE Comment: - Advised to quit smoking and avoid second hand smoke. (7) DVT prophylaxis Code(s): GVN0046 - Comment: - Lovenox. (8) Full code status Code(s): Z78.9 - OTHER SPECIFIED HEALTH STATUS Status and Disposition: Inpatient.
[2016-07-08 00:19] LABS: CSF West Nile Virus RNA (PCR) Negative (Negative); West Nile Virus Source CSF
--- NOTE | 2016-07-08 07:47 | DS ---
MEDICINE DISCHARGE SUMMARY: DATE OF ADMISSION: 07/03/16 DATE OF DISCHARGE: 07/07/16 PRIMARY CARE PROVIDER: Surekha Trinidad NP PROVIDER: Magdalena Alan NP ATTENDING PHYSICIAN: Dr. Avtar Weiner *(as dictated by Magdalena Alan NP) CONSULTING PHYSICIAN: Dr. Jayy Bond. PRIMARY DISCHARGE DIAGNOSES: 1. Guillain-Dalton syndrome, suspected. 2. Hyponatremia. 3. Elevated PSA. SECONDARY DISCHARGE DIAGNOSES: 1. 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 2. Chronic obstructive pulmonary disease. 3. History of tobacco use. 4. History of alcohol abuse, the patient reports no alcohol use x26 years. MEDICATIONS AT DISCHARGE: 1. Aspirin 81 mg daily. 2. Albuterol inhaler 2 puffs inhaled q.4 hours p.r.n. 3. Spiriva 1 capsule inhaled daily. 4. Omeprazole 20 mg daily. 5. Cholecalciferol 2000 units daily. 6. Pravastatin 40 mg at bedtime. 7. Metoprolol succinate XL 25 mg daily. DIAGNOSTIC TESTING DURING THIS ADMISSION: CT brain from 07/03/16 shows no acute intracranial pathology. Chest x-ray from 07/03/16 shows emphysema. No active cardiopulmonary disease. Shoulder x-ray from 07/03/16 shows no traumatic injury evident. Nuclear medicine bone scan, impression: No evidence for bone metastasis. Lower extremity arterial study: The patient has a right ankle brachial index of 1.03 within normal range and left ankle brachial index of 1.08 within normal range. Impression: No physiologic evidence for hemodynamic significant arterial inflow disease or intrinsic stenoses within the lower extremities. Electromyogram, conclusion: The patient left tibial and peroneal F waves were contaminated by artifacts . 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 remains a consideration and a repeat study in 7 days will certainly be more revealing. MRI of the cervical spine, impression: 1. Degenerative disk disease and osteoarthritis. 2. There is [id number] narrowing of the central canal at C3-C4 and C6- C7. There is mild narrowing at C4-C5 and C5-C6. 3. There is multilevel neural foraminal narrowing as described above. HOSPITAL COURSE OF STAY: For full details, please refer to the H and P provided by Dr. Rodriguez on 07/03/16. In summary, Mr. Valdovinos is a 76-year-old gentleman who presented to the ER with concern for weakness. About 10 days prior to admission, he had reported dysuria with diagnosis of UTI. He took Bactrim for about 5 days. On 06/28/16, he noticed weakness in his legs. The patient was seen in consultation by Neurology. The ER had contacted Dr. Bond because the patient's story was concerning as his weakness apparently started with numbness and tingling to his hands and had progressed to numbness and tingling in his feet, the weakness did progress over several days, requiring the patient to use a cane. There was suspicion that the patient had Guillain-Dalton syndrome. A lumbar puncture was also done as well as Lyme testing and myasthenia gravis antibodies. The patient's CSF was significant for elevated glucose and protein. He was treated with IVIG under the direction of Neurology. Following the IVIG, the patient did show improvement in his symptoms. No respiratory issues were demonstrated and the patient was able to be maintained on supplemental O2 for comfort. No signs of exacerbation of COPD was also noted. There were also noted signs of autonomic dysfunction and postvoid residuals were within normal limits. Given the patient's weakness from the suspected Guillain-Dalton, he was screened for PMRU and was accepted. The patient was able to demonstrate ambulation with a walker and standby assist , but will require further work unassisted prior to being discharged back to home. The patient also demonstrated some hyponatremia while admitted here, which has been trending up and improving. The patient was seen by Dr. Sky on 10/16, who recommended followup with Neurology. We did discuss this patient with the physiatry team in [facility]. The patient appears ready for acute rehab in the [facility]. No other acute concerns or complaints from the patient. CONCERNS AT DISCHARGE: Mr. Valdovinos was discharged to [facility] on 07/07/16. DIET: Regular diet. ACTIVITY: As tolerated. CONDITION: Improved. DISPOSITION: To [facility]. TIME SPENT: Time spent on this discharge was approximately 40 minutes. Again, this is only a brief summary of the patient's hospital course of stay. For full details, please refer to the full medical records. If you have any further questions or need further assistance, please feel free to contact me at [phone]. MAGDALENA ALAN NP CC: Surekha Trinidad NP* [id number]/CPS #: [id number] MTDD
[2016-07-08 16:28] LABS: Acetylcholine Recept Mod Ab 0 %
[2016-07-10 16:02] LABS: Lyme IgG Results NEGATIVE; Lyme IgG WB CSF NEGATIVE; Lyme IgG WB Serum NEGATIVE; Lyme IgM Bands Det Serum 23Kd; Lyme IgM WB Serum NEGATIVE
== END 2016-07-07 11:45 | DRG 95 ==
LOC: ED 12:30 → MED 17:02 → ICU 18:42 → OBSVTOIN 07-04 09:59 → MED 07-05 11:09
PROVIDERS: ADMIT Internal Medicine; ATTEND Internal Medicine
PROC: 009U3ZX Drainage of Spinal Canal, Percutaneous Approach, Diagnostic (ICD-10-PCS; principal; 2016-07-04)
PROC: 4A01X4Z Measurement of Peripheral Nervous Electrical Activity, External Approach (ICD-10-PCS; 2016-07-04)
DX: G61.0 Guillain-Barre syndrome (principal); E87.1 Hypo-osmolality and hyponatremia; I27.2 Other secondary pulmonary hypertension; G82.20 Paraplegia, unspecified; M48.02 Spinal stenosis, cervical region; E78.00 Pure hypercholesterolemia, unspecified; I10 Essential (primary) hypertension; J44.9 Chronic obstructive pulmonary disease, unspecified; K21.9 Gastro-esophageal reflux disease without esophagitis; F17.200 Nicotine dependence, unspecified, uncomplicated; M41.9 Scoliosis, unspecified; M25.511 Pain in right shoulder; R97.20 Elevated prostate specific antigen [PSA]; M47.9 Spondylosis, unspecified; G62.9 Polyneuropathy, unspecified; Z85.820 Personal history of malignant melanoma of skin; Z85.118 Personal history of other malignant neoplasm of bronchus and lung; Z99.81 Dependence on supplemental oxygen; Z79.82 Long term (current) use of aspirin; Z82.49 Family history of ischemic heart disease and other diseases of the circulatory system; Z87.440 Personal history of urinary (tract) infections; R40.2412 Glasgow coma scale score 13-15, at arrival to emergency department
CPT/HCPCS: 36415; 70450; 71010; 72141; 78306; 80048; 80053; 82550; 82553; 82945; 83519; 83520; 83605; 83690; 83735; 84153; 84157; 84443; 84484; 85025; 85379; 85610; 85652; 85730; 86140; 86617; 86618; 87641; 87798; 89051; 93005; 93923; 94640; 94760; 95913; 99406; A9270-GY; A9503; G0103; G0378; J0780; J1568; J1650; J2270; J2405

== ENCOUNTER 2016-07-07 10:45 | Inpatient (IN) | payer MEDICARE ==
[2016-07-07] MEDS ORDERED: Spiriva Inhaler DEVICE* 1 EACH DEVICE INH ONE (13:00)
[2016-07-07] MEDS ORDERED: Enoxaparin(*) 40 MG/0.4 ML SYR SUBCUT SCH (13:00)
[2016-07-07] MEDS: Gabapentin CAP(*) 100 MG PO SCH (20:55)
[2016-07-07] MEDS: Docusate CAP* 100 MG PO SCH (20:55)
[2016-07-07] MEDS: Enoxaparin(*) 40 MG/0.4 ML SYR SUBCUT SCH (20:56)
[2016-07-07] MEDS ORDERED: Senna TAB PO PRN (21:00)
[2016-07-07] MEDS ORDERED: oxyCODONE/Acetamin 5/325 MG* TAB ONE (21:57)
--- NOTE | 2016-07-07 22:17 | HP ---
ADMISSION HISTORY AND PHYSICAL: DATE OF ADMISSION: 07/07/16 REASON FOR ADMISSION: Guillain-Valdez syndrome. HISTORY OF PRESENT ILLNESS: Gregory Valdovinos is a 76-year-old male. According to the patient, he had a urinary tract infection in the middle of May. It was treated with an antibiotic. Over the course of the next 2 weeks, the patient seemed to be fine. On Thursday, June 27, he mowed his lawn. On June 28, the patient woke up and felt quite weak. He was not able to walk properly and he fell. He called his primary care doctor. There was some concern that the antibiotic might be causing some sort of weakness. They arranged for laboratory tests to be done. The patient proceeded to get weaker over the course of the next 7 days. By July 03, the patient was quite weak. He called his primary care provider again. Surekha Trinidad, in [place] advised him to go to the emergency room. The patient was seen in the emergency room. He had a CAT scan of the brain which looked normal. A chest x-ray which showed some emphysematous changes, but otherwise normal. He had a neurology consult in the emergency room. He was noted to be areflexic. Dr. Bond who saw the patient felt that he had a picture consistent with Guillain-Valdez syndrome. The MRI was done of his cervical spine. It showed stenosis in his cervical spine. However, it was felt that the clinical picture did resemble Guillain-Valdez more so than cervical myelopathy or cervical stenosis. He had a lumbar puncture done, July 04. The patient was treated with IVIG. He had a nerve conduction study showing a modest sensory neuropathy. The patient started physical therapy and occupational therapy. He got treated with a full course of IVIG. His spinal fluid was consistent with Guillain-Valdez. He was felt to have physical therapy and occupational therapy needs. He is now being admitted for inpatient rehab so that he might return to independent living. PAST MEDICAL HISTORY: Significant for the aforementioned Guillain-Valdez. He also has a history of having had the urinary tract infection. 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 He has COPD. He is a recovering alcoholic, but has not had any alcohol in many years. He does continue to smoke. CURRENT MEDICATIONS: Include: 1. Aspirin 81 mg daily. 2. He is on Lovenox for DVT prophylaxis. 3. Neurontin. 4. Toprol-XL. 5. Spiriva. ALLERGIES: No known drug allergies. SOCIAL HISTORY: He is a smoker. He is a nondrinker. He lives with his in a trailer with 3 steps to enter. 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 PHYSICAL EXAMINATION VITAL SIGNS: The patient's temperature is 99.0, blood pressure is 132/56, pulse 92, respirations 18. HEENT: His extraocular movements appear to be intact. Tongue is midline. NECK: Supple. LUNGS: Sounded clear to auscultation bilaterally. HEART: Sounds were regular. S1, S2 audible. ABDOMEN: Soft and nontender. EXTREMITIES: Perhaps some decrease in muscle tone. NEUROLOGIC: I was not able to obtain reflexes. Muscle strength was about 4/5 on the right side and 4+/5 on the left. FUNCTIONAL EXAM: The patient transfers with contact guard to min assist. ASSESSMENT: Guillain-Valdez syndrome. PLAN: Integrate him into a comprehensive and therapeutic rehab program with the following goals: 1. Physical Therapy will work with the patient. They are going to work on functional transfer training, ambulation training with a walker. 2. Occupational Therapy will see the patient and work on his activities of daily living, including toileting and toilet transfers. 3. Lovenox for DVT prophylaxis. 4. Adequate analgesia including Neurontin. 5. Neurology followup as indicated. 6. software engineer web services will be closely involved to make sure that any services and equipment that the patient requires are in place prior to discharge. 7. His bowels will be regulated. 8. Advance directives: He is a full code. 9. Family training as appropriate. 10. Home with appropriate services. ESTIMATED LENGTH OF STAY: Two weeks. [id number]/CPS #: [id number] MTDD
[2016-07-07] MEDS: Albuterol HFA INHALER* 8 gm MDI INH PRN (22:34)
[2016-07-08] MEDS: oxyCODONE/Acetamin 5/325 MG* TAB PO PRN ×3 (05:03→20:15)
[2016-07-08] MEDS: Omeprazole CAP* 20 MG PO SCH (06:47)
[2016-07-08] MEDS: Gabapentin CAP(*) 100 MG PO SCH ×3 (08:18→20:14)
[2016-07-08] MEDS: Aspirin EC Low Dose* 81 MG TAB.EC PO SCH (08:18)
[2016-07-08] MEDS: Docusate CAP* 100 MG PO SCH ×2 (08:18→20:16)
[2016-07-08] MEDS: Metoprolol Succinate XL TAB* 25 MG PO SCH (08:19)
[2016-07-08] MEDS: Tiotropium CAP.INH* CAP.INH/18 MCG INH SCH (08:19)
--- NOTE | 2016-07-08 12:31 | PMRUTEAM ---
PMRU: Goals Current Status: Physical Therapy: Current Status Bed Mobility Assistance Supervision Transfer Moblility Assistance Contact Guard Assist Transfer/Bed Mobility Rolling Walker Recommended Devices Ambulation Assistance Supervision,Contact Guard Assist Ambulation Assistive Devices Rolling Walker Number of Feet Patient 50' Ambulated Stairs Assistance Contact Guard Assist Stairs Recommended Devices Two Rails Number of Stairs 5 Occupational Therapy: Current Status Upper Body Dressing Supervision Lower Body Dressing Min Assist Bathing Min Assist Toileting Contact Guard Assist,Min Assist,Mod Assist Toilet Transfer Contact Guard Assist,Min Assist Shower Transfer Contact Guard Assist,Min Assist Eating Ind with Adaptive Equip Rec Therapy: Current Status Summary of Assessment and RT assessment complete, pt. is aware of services Clinical Impression and open to leisure visits. Treatment Goals Pt. will engage in leisure activities while on the unit. Treatment Plan Provide RT services and encourage involvement. 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 Labs unremarkable 07/07; ate 40% L yesterday. Skin intact; no open areas noted. Last BM 07/02; is taking opiate pain meds prn; bowel regimen ordered (received colace today). Full nutrition assessment to follow per protocol. Goals: Physical Therapy: Initial Goals Bed Mobility Assistance Independent Transfer Mobility Assistance Independent Transfer/Bed Mobility Rolling Walker Recommended Devices Ambulation Independent Ambulation Recommended Devices Rolling Walker Ambulation Distance 150 Stairs Assistance Supervision Stair Recommended Devices Two Rails Number of Stairs 3 Physical Therapy: Updated Goals Bed Mobility Assistance Independent Transfer Mobility Assistance Independent Transfer/Bed Mobility Rolling Walker Recommended Devices Ambulation Assistance Independent Ambulation Assistive Devices Rolling Walker Ambulation Distance (ft) 150 Stairs Assistance Supervision Stairs Recommended Devices Two Rails Number of Stairs 5 Occupational Therapy: Initial Goals Goals to be Completed in (Days 7 days ) Upper Body Bathing Routine Modified Independent with Upper Body Bathing Assistive Pt may benefit from tub bench. Devices Lower Body Bathing Routine Modified Independent with Lower Body Bathing Assistive Pt may benefit from tub bench. Devices Comment Upper Body Dressing Routine Independent Lower Body Dressing Routine Modified Independent with Lower Body Dressing Assistive With FWW prn. Devices Toilet Hygeine and Clothing Modified Independent with Management Routine Toilet Hygeine and Clothing With FWW prn. Management Assistive Devices Toilet Transfer Routine Modified Independent with Toilet Transfer Assistive With FWW prn. Devices Tub Transfer Routine Modified Independent with Tub Trasnfer Assistive Devices With potential tub transfer bench. Functional Transfers for ADL Modified Independent with Functional Transfers for ADl With FWW prn. Assistive Devices Grooming Routine Modified Independent with Grooming Assistive Devices Pt has dentures. Feeding Routine Modified Independent with Feeding Assistive Devices Dentures. Nutrition: Goals Intervention Goals 1. Intake will be adequate to maintain stable wt/ prevent wt loss 2. Pt will establish regular bowel pattern without constipation 3. Skin will remain intact, so s/sx breakdown Social Work: Goals Discharge Plan Return home with home care svs and family support Potential for Family Training pt's is involved and supportive Anticipated Discharge Home Destination Discharge With home care svs and family support Care Plan: Care Plan DVT Prophylaxis- Improve/Maintain Start: 07/07/16 14:45 Freq: DAILY Status: Active Target: Activity Type Activity Date Activity User E-Sign Co-Sign Detail Recorded Client Recorded Date Recorded By Document 07/08/16 12:24 [id number] [facility]-1 07/08/16 12:24 [id number] 07/08/16 12:24 PMRU Outcome: DVT Prophylaxis Outcome/Goals Remains Free of DVT Demonstrates Knowledge of DVT Prevention/ Treatment TEDS Stockings on Every AM, Off at HS Progression Toward Outcome/Goals Progressing Discharge Planning - Improve/Maintain Start: 07/07/16 14:45 Freq: DAILY Status: Active Target: Activity Type Activity Date Activity User E-Sign Co-Sign Detail Recorded Client Recorded Date Recorded By Document 07/08/16 01:19 [id number] [email or web address]-M10 07/08/16 01:21 [id number] 07/08/16 01:19 PMRU Outcome: Discharge Planning Update Patient Family No Outcome/Goals Demonstrates Understanding of Discharge Plan Education-Improve/Maintain Start: 07/07/16 14:45 Freq: DAILY Status: Active Target: Activity Type Activity Date Activity User E-Sign Co-Sign Detail Recorded Client Recorded Date Recorded By Document 07/08/16 12:24 [id number] 07/08/16 12:24 [id number] 07/08/16 12:24 PMRU Outcome: Education Outcome/Goals Demonstrate/ Verbalize Understanding of Written Discharge Instructions Demonstrates Skills Encourage Questions Progression Toward Outcome/Goals Progressing Medication Administration Start: 07/07/16 14:45 Freq: DAILY Status: Active Target: Activity Type Activity Date Activity User E-Sign Co-Sign Detail Recorded Client Recorded Date Recorded By Document 07/08/16 01:19 [id number] 07/08/16 01:21 [id number] 07/08/16 01:19 PMRU Outcome: Medication Administration Assess Patient Knowledge/Teach Med No Education for all Meds Outcome/Goals Patient Independent with Medication Administration at Home Demonstrates Understanding Is Patient Going Home on Lovenox? No Mobility- Improve/Maintain Start: 07/07/16 14:39 Freq: DAILY Status: Active Target: Activity Type Activity Date Activity User E-Sign Co-Sign Detail Recorded Client Recorded Date Recorded By Document 07/07/16 14:39 [email or web address] 07/07/16 14:40 [id number] 07/07/16 14:39 PMRU Outcome: Mobility Physical Therapy Evaluation and Yes Treatment Activity OOB with Assistance Yes WBAT Yes NWB No TTWB No Device Yes: walker Assistance Yes: min a Patient to be seen 5x/wk for 60-120 min/ Therex day for: Mobility Training Gait Training Balance Outcome/Goals Maintain/ Achieve Baseline Mobility Status Improve Mobility Status Demonstrates Proper Use of Assistive Devices Free from Complications of Immobility Bed Mobility Yes: I Transfers Yes: mod I Gait x ft Yes: mod I with rolling walker 150ft W/C Mobility x ft No Up/Down Stairs Yes: supervised 3 steps With HEP Yes: I Neurological- Improve/Maintain Start: 07/07/16 14:45 Freq: DAILY Status: Active Target: Activity Type Activity Date Activity User E-Sign Co-Sign Detail Recorded Client Recorded Date Recorded By Document 07/08/16 12:24 [id number] 07/08/16 12:24 [id number] 07/08/16 12:24 PMRU Outcome: Neurological Weakness/Aphasia Weakness Outcome/Goals Improve Neurological Status Demonstrate Knowledge of Prevention/Tx of Neuro Disorders/ Complication Maintain/ Improve Strength/ROM Progression Toward Outcome/Goals Progressing Pain/Comfort- Improve/Maintain Start: 07/07/16 14:45 Freq: DAILY Status: Active Target: Activity Type Activity Date Activity User E-Sign Co-Sign Detail Recorded Client Recorded Date Recorded By Document 07/08/16 12:24 [id number] [email or web address]-M11 07/08/16 12:24 [id number] 07/08/16 12:24 PMRU Outcome: Pain/Comfort Outcome/Goals Demonstrates Knowledge and Use of Available Comfort Measures Achieves Acceptable Comfort/Pain Level as Determined by Patient/Condit Maintain Comfort Level Allowing Patient to Fully Participate in Rehab Progression Toward Outcome/Goals Progressing Respiratory - Improve/Maintain Start: 07/07/16 14:45 Freq: DAILY Status: Active Target: Activity Type Activity Date Activity User E-Sign Co-Sign Detail Recorded Client Recorded Date Recorded By Document 07/08/16 12:24 [id number] [email or web address]-M11 07/08/16 12:24 [id number] 07/08/16 12:24 PMRU Outcome: Respiratory Does Patient Have a Trach No Outcome/Goals Maintain/ Improve Activity Tolerance Prevent Pneumonia/ Atelectasis Progression Toward Outcome/Goals Progressing Safety- Improve/Maintain Start: 07/07/16 14:45 Freq: DAILY Status: Active Target: Activity Type Activity Date Activity User E-Sign Co-Sign Detail Recorded Client Recorded Date Recorded By Document 07/08/16 12:24 [id number] [email or web address] 07/08/16 12:24 [id number] 07/08/16 12:24 PMRU Outcome: Safety Outcome/Goals Remain Free of Injury or Harm Cooperates with Safety Measures for Least Restrictive Environment Progression Toward Outcome/Goals Progressing Medicine Note: Length of Stay: 7 days Anticipated Discharge Destination: Home Tentative Discharge Date: 07/15/16 Discharged to: Home
[2016-07-08] MEDS: Enoxaparin(*) 40 MG/0.4 ML SYR SUBCUT SCH (20:16)
[2016-07-08] MEDS: Acetaminophen TAB* 325 MG PO PRN (22:06)
[2016-07-09] MEDS: oxyCODONE/Acetamin 5/325 MG* TAB PO PRN ×5 (00:14→17:03)
[2016-07-09] MEDS ORDERED: Ondansetron ODT TAB* 4 MG PO PRN (01:01)
[2016-07-09] MEDS: Omeprazole CAP* 20 MG PO SCH (06:34)
[2016-07-09] MEDS: Metoprolol Succinate XL TAB* 25 MG PO SCH (08:30)
[2016-07-09] MEDS: Docusate CAP* 100 MG PO SCH ×2 (08:30→20:59)
[2016-07-09] MEDS: Aspirin EC Low Dose* 81 MG TAB.EC PO SCH (08:30)
[2016-07-09] MEDS: Gabapentin CAP(*) 100 MG PO SCH ×3 (08:30→20:00)
[2016-07-09] MEDS: Tiotropium CAP.INH* CAP.INH/18 MCG INH SCH (08:31)
[2016-07-09] MEDS: Magnesium Hydroxide LIQ* 30 ML UDC PO PRN (08:35)
[2016-07-09 09:24] LABS: Hematocrit 41 % (42-52); Hemoglobin 13.5 g/dl (14.0-18.0); Mean Corpuscular HGB Conc 33 g/dl (31-36); Mean Corpuscular Hemoglobin 30 pg (27-31); Mean Corpuscular Volume 91 fL (80-94); Mean Platelet Volume 7 um3 (7.4-10.4); Red Blood Count 4.53 10^6/ul (4.0-5.4); Red Cell Distribution Width 14 % (10.5-15)
[2016-07-09 09:38] LABS: Albumin 3.5 g/dL (3.2-5.2); BUN/Creatinine Ratio 21.6 (8-20); Calcium 9.7 mg/dL (8.6-10.3); EGFR African American 108.9 (>60); EGFR Non-African American 84.7 (>60); Globulin 4.3 g/dL (2-4); Potassium 3.8 mmol/L (3.5-5.0); Total Bilirubin 0.5 mg/dL (0.2-1.0); Total Protein 7.8 g/dL (6.4-8.9)
[2016-07-09] MEDS: Albuterol HFA INHALER* 8 gm MDI INH PRN (09:47)
[2016-07-09] MEDS: Enoxaparin(*) 40 MG/0.4 ML SYR SUBCUT SCH (19:59)
[2016-07-10] MEDS: oxyCODONE/Acetamin 5/325 MG* TAB PO PRN ×4 (00:05→12:49)
[2016-07-10] MEDS: Omeprazole CAP* 20 MG PO SCH (06:42)
[2016-07-10 07:49] LABS: Urine Bacteria 2+ (Absent); Urine Bilirubin Negative (Negative); Urine Glucose Negative (Negative); Urine Nitrite Positive (Negative)
[2016-07-10] MEDS: Nicotine PATCH 21 MG/24 HR* PATCH TRANSDERM SCH (08:10)
[2016-07-10] MEDS: Gabapentin CAP(*) 300 MG PO SCH ×3 (08:11→20:22)
[2016-07-10] MEDS: Metoprolol Succinate XL TAB* 25 MG PO SCH (08:12)
[2016-07-10] MEDS: Aspirin EC Low Dose* 81 MG TAB.EC PO SCH (08:12)
[2016-07-10] MEDS: Docusate CAP* 100 MG PO SCH ×2 (08:12→20:22)
[2016-07-10] MEDS: Tiotropium CAP.INH* CAP.INH/18 MCG INH SCH (08:13)
[2016-07-10] MEDS: Magnesium Hydroxide LIQ* 30 ML UDC PO PRN (08:19)
[2016-07-10] MEDS: Levofloxacin TAB* 250 MG PO SCH (11:40)
[2016-07-10] MEDS: Enoxaparin(*) 40 MG/0.4 ML SYR SUBCUT SCH (20:23)
[2016-07-10] MEDS: Nicotine Patch Removal NOTE PATCH OFF SCH (20:28)
[2016-07-10] MEDS ORDERED: Sulfamethox/Trimethoprim DS 800/160* TAB PO SCH (21:00)
[2016-07-11] MEDS: oxyCODONE/Acetamin 5/325 MG* TAB PO PRN ×5 (03:56→21:15)
[2016-07-11] MEDS: Tiotropium CAP.INH* CAP.INH/18 MCG INH SCH (08:10)
[2016-07-11] MEDS: Aspirin EC Low Dose* 81 MG TAB.EC PO SCH (08:11)
[2016-07-11] MEDS: Omeprazole CAP* 20 MG PO SCH (08:11)
[2016-07-11] MEDS: Docusate CAP* 100 MG PO SCH ×2 (08:11→21:07)
[2016-07-11] MEDS: Metoprolol Succinate XL TAB* 25 MG PO SCH (08:11)
[2016-07-11] MEDS: Gabapentin CAP(*) 300 MG PO SCH ×3 (08:11→19:58)
[2016-07-11] MEDS: Magnesium Hydroxide LIQ* 30 ML UDC PO PRN ×2 (08:12→21:07)
[2016-07-11] MEDS: Nicotine PATCH 21 MG/24 HR* PATCH TRANSDERM SCH (10:38)
[2016-07-11] MEDS: Polyethylene Glycol 3350* 17 GM PACKET PO SCH (10:49)
[2016-07-11] MEDS: Lactobacillus Acidophilu (GG)* 1 CAP CAP PO SCH (11:58)
[2016-07-11] MEDS: Levofloxacin TAB* 250 MG PO SCH (11:58)
[2016-07-11] MEDS: Albuterol HFA INHALER* 8 gm MDI INH PRN (13:45)
[2016-07-11] MEDS: Enoxaparin(*) 40 MG/0.4 ML SYR SUBCUT SCH (21:07)
[2016-07-11] MEDS: Nicotine Patch Removal NOTE PATCH OFF SCH (21:26)
[2016-07-12] MEDS: oxyCODONE/Acetamin 5/325 MG* TAB PO PRN ×3 (01:03→21:06)
[2016-07-12] MEDS: Albuterol HFA INHALER* 8 gm MDI INH PRN (01:12)
[2016-07-12] MEDS: Nicotine PATCH 21 MG/24 HR* PATCH TRANSDERM SCH (08:22)
[2016-07-12] MEDS: Gabapentin CAP(*) 300 MG PO SCH ×3 (08:24→20:58)
[2016-07-12] MEDS: Omeprazole CAP* 20 MG PO SCH (08:24)
[2016-07-12] MEDS: Docusate CAP* 100 MG PO SCH ×2 (08:25→20:55)
[2016-07-12] MEDS: Polyethylene Glycol 3350* 17 GM PACKET PO SCH (08:27)
[2016-07-12] MEDS: Aspirin EC Low Dose* 81 MG TAB.EC PO SCH (08:28)
[2016-07-12] MEDS: Metoprolol Succinate XL TAB* 25 MG PO SCH (08:29)
[2016-07-12] MEDS: Tiotropium CAP.INH* CAP.INH/18 MCG INH SCH (08:29)
[2016-07-12] MEDS: Levofloxacin TAB* 250 MG PO SCH (11:17)
[2016-07-12] MEDS: Lactobacillus Acidophilu (GG)* 1 CAP CAP PO SCH (11:17)
[2016-07-12] MEDS: Enoxaparin(*) 40 MG/0.4 ML SYR SUBCUT SCH (20:59)
[2016-07-12] MEDS: Nicotine Patch Removal NOTE PATCH OFF SCH (21:29)
[2016-07-13] MEDS: oxyCODONE/Acetamin 5/325 MG* TAB PO PRN ×3 (01:59→13:14)
[2016-07-13] MEDS: Albuterol HFA INHALER* 8 gm MDI INH PRN ×2 (02:03→13:09)
[2016-07-13] MEDS: Omeprazole CAP* 20 MG PO SCH (06:39)
[2016-07-13] MEDS: Nicotine PATCH 21 MG/24 HR* PATCH TRANSDERM SCH (07:33)
[2016-07-13] MEDS: Polyethylene Glycol 3350* 17 GM PACKET PO SCH (07:34)
[2016-07-13] MEDS: Lactobacillus Acidophilu (GG)* 1 CAP CAP PO SCH (07:35)
[2016-07-13] MEDS: Tiotropium CAP.INH* CAP.INH/18 MCG INH SCH (07:36)
[2016-07-13] MEDS: Gabapentin CAP(*) 300 MG PO SCH ×2 (07:36→17:25)
[2016-07-13] MEDS: Docusate CAP* 100 MG PO SCH ×2 (07:36→20:24)
[2016-07-13] MEDS: Aspirin EC Low Dose* 81 MG TAB.EC PO SCH (07:36)
[2016-07-13] MEDS: Metoprolol Succinate XL TAB* 25 MG PO SCH (07:43)
[2016-07-13] MEDS ORDERED: Polyethylene Glycol 3350* 17 GM PACKET PO PRN (10:26)
[2016-07-13] MEDS: Levofloxacin TAB* 250 MG PO SCH (11:03)
[2016-07-13] MEDS: Gabapentin CAP(*) 400 MG PO SCH (20:23)
[2016-07-13] MEDS: Enoxaparin(*) 40 MG/0.4 ML SYR SUBCUT SCH (20:25)
[2016-07-13] MEDS: Nicotine Patch Removal NOTE PATCH OFF SCH (20:30)
[2016-07-14] MEDS: oxyCODONE/Acetamin 5/325 MG* TAB PO PRN ×3 (01:35→21:10)
[2016-07-14] MEDS: Albuterol HFA INHALER* 8 gm MDI INH PRN ×2 (01:36→21:12)
[2016-07-14] MEDS: Omeprazole CAP* 20 MG PO SCH (05:33)
[2016-07-14] MEDS: Gabapentin CAP(*) 300 MG PO SCH ×2 (08:28→16:48)
[2016-07-14] MEDS: Metoprolol Succinate XL TAB* 25 MG PO SCH (08:28)
[2016-07-14] MEDS: Docusate CAP* 100 MG PO SCH ×2 (08:28→21:11)
[2016-07-14] MEDS: Aspirin EC Low Dose* 81 MG TAB.EC PO SCH (08:28)
[2016-07-14] MEDS: Lactobacillus Acidophilu (GG)* 1 CAP CAP PO SCH (08:28)
[2016-07-14] MEDS: Tiotropium CAP.INH* CAP.INH/18 MCG INH SCH (08:28)
[2016-07-14] MEDS: Nicotine PATCH 21 MG/24 HR* PATCH TRANSDERM SCH (10:38)
[2016-07-14] MEDS: Levofloxacin TAB* 250 MG PO SCH (11:23)
[2016-07-14] MEDS: Gabapentin CAP(*) 400 MG PO SCH (21:10)
[2016-07-14] MEDS: Enoxaparin(*) 40 MG/0.4 ML SYR SUBCUT SCH (21:12)
[2016-07-14] MEDS: Nicotine Patch Removal NOTE PATCH OFF SCH (21:16)
[2016-07-15] MEDS: oxyCODONE/Acetamin 5/325 MG* TAB PO PRN ×3 (00:12→08:38)
[2016-07-15] MEDS: Acetaminophen TAB* 325 MG PO PRN (03:08)
[2016-07-15 05:57] VITALS: BP 129/73
[2016-07-15] MEDS: Docusate CAP* 100 MG PO SCH (08:37)
[2016-07-15] MEDS: Omeprazole CAP* 20 MG PO SCH (08:38)
[2016-07-15] MEDS: Tiotropium CAP.INH* CAP.INH/18 MCG INH SCH (08:38)
[2016-07-15] MEDS: Aspirin EC Low Dose* 81 MG TAB.EC PO SCH (08:38)
[2016-07-15] MEDS: Metoprolol Succinate XL TAB* 25 MG PO SCH (08:38)
[2016-07-15] MEDS: Gabapentin CAP(*) 300 MG PO SCH (08:38)
[2016-07-15] MEDS: Lactobacillus Acidophilu (GG)* 1 CAP CAP PO SCH (08:38)
[2016-07-15] MEDS: Nicotine PATCH 21 MG/24 HR* PATCH TRANSDERM SCH (08:39)
[2016-07-15] MEDS: Levofloxacin TAB* 250 MG PO SCH (11:32)
--- NOTE | 2016-07-16 03:21 | DS ---
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 2. Urinary tract infection. 3. Chronic obstructive pulmonary disease. 4. Alcoholism in remission. 5. Lung cancer. HISTORY OF ILLNESS AND HOSPITAL COURSE: For complete history of the events leading up to his rehab stay, please see the history and physical dictated by me on 07/07/16. While on the rehab unit, the patient was medically stable. He felt like he had another urinary tract infection with dirty foul smelling urine. An urinalysis was sent. It was consistent with a UTI. He grew out E. coli. He was treated with Levaquin for this urinary tract infection. Other than that, he was medically stable while on the rehab unit. The patient was given a nicotine patch for his nicotine addiction. The patient was seen by both Physical and Occupational Therapy and made good gains with both disciplines. With physical therapy, at that time of admission, the patient required min assist for transfer and min assist to ambulate about 30 feet. With occupational therapy, he was min to mod assist for toileting and toilet transfers. By the time of discharge, the patient was independent and transfers independent ambulating a 150 feet needing supervision to go up and down 5 steps. He was independent for dressing, independent with toilet transfers, independent with toileting, supervision for bathing. The patient was discharged home with his on 07/15/16. DISCHARGE DIET: Regular. DISCHARGE MEDICATIONS: Included: 1. Gabapentin 300 mg 3 times a day. 2. He was also on an albuterol HFA inhaler 2 puffs every 4 hours as needed. 3. Aspirin 81 mg daily. 4. Levaquin 250 mg daily for 2 days. 5. Toprol-XL 25 mg daily. 6. Omeprazole 20 mg daily. 7. Spiriva inhaler 1 capsule inhaled daily. 8. Oxycodone. 9. Percocet 5/325 one tablet every 4 hours as needed. SERVICES AFTER DISCHARGE: Through visiting nurse service. He will have home nursing, home physical therapy, home health aide. Follow up with Surekha Trinidad NP, his primary care provider, in 2 weeks. CC: Surekha Trinidad NP, [facility]* [id number]/[facility] #: [id number] [facility]
== END 2016-07-15 11:35 | disposition home health service (06) | DRG 690 ==
LOC: PMRU 11:59
PROVIDERS: ADMIT Physical Medicine & Rehabilitation; ATTEND Physical Medicine & Rehabilitation
PROC: F07Z5ZZ Bed Mobility Treatment (ICD-10-PCS; principal; 2016-07-07)
PROC: F07Z8ZZ Transfer Training Treatment (ICD-10-PCS; 2016-07-07)
PROC: F07Z9ZZ Gait Training/Functional Ambulation Treatment (ICD-10-PCS; 2016-07-07)
PROC: F08Z0ZZ Bathing/Showering Techniques Treatment (ICD-10-PCS; 2016-07-07)
PROC: F08Z1ZZ Dressing Techniques Treatment (ICD-10-PCS; 2016-07-07)
PROC: F08Z3ZZ Feeding/Eating Treatment (ICD-10-PCS; 2016-07-07)
DX: N39.0 Urinary tract infection, site not specified (principal); J44.9 Chronic obstructive pulmonary disease, unspecified; B96.20 Unspecified Escherichia coli [E. coli] as the cause of diseases classified elsewhere; F10.21 Alcohol dependence, in remission; K59.00 Constipation, unspecified; F17.210 Nicotine dependence, cigarettes, uncomplicated; Z85.118 Personal history of other malignant neoplasm of bronchus and lung; Z79.82 Long term (current) use of aspirin; Z79.899 Other long term (current) drug therapy
CPT/HCPCS: 36415; 80053; 81003; 81015; 85025; 87077; 87086; 87186; 94760; A9270-GY; J1650

== ENCOUNTER 2016-08-03 00:29 | Inpatient (IN) | payer MEDICARE ==
[2016-08-03] MEDS ORDERED: Ondansetron INJ* 2 MG/ML VIAL IV ONE (00:56)
[2016-08-03] MEDS ORDERED: NS 0.9% 1000 ML* 1,000 ML IV ONE ×2 (00:56→21:55)
[2016-08-03 02:06] LABS: Hematocrit 47 % (42-52); Hemoglobin 15.6 g/dl (14.0-18.0); Mean Corpuscular HGB Conc 33 g/dl (31-36); Mean Corpuscular Hemoglobin 30 pg (27-31); Mean Corpuscular Volume 90 fL (80-94); Mean Platelet Volume 8 um3 (7.4-10.4); Red Blood Count 5.17 10^6/ul (4.0-5.4); Red Cell Distribution Width 15 % (10.5-15); White Blood Count 11.2 10^3/ul (3.5-10.8)
[2016-08-03 02:22] LABS: Albumin 4.2 g/dL (3.2-5.2); BUN/Creatinine Ratio 15.2 (8-20); Calcium 10.4 mg/dL (8.6-10.3); EGFR Non-African American 73.9 (>60); Globulin 3.4 g/dL (2-4); Potassium 4.4 mmol/L (3.5-5.0); Total Bilirubin 0.8 mg/dL (0.2-1.0); Total Protein 7.6 g/dL (6.4-8.9)
[2016-08-03 02:24] LABS: Troponin I 0.01 ng/mL (<0.04)
[2016-08-03] MEDS ORDERED: Iohexol 300* (CONTRAST) 10 ML SDV IV ONE (03:10)
--- NOTE | 2016-08-03 06:29 | ED ---
Kishore Wolf Aidan, scribed for Samuel Anthonyuel on 08/03/16 at 0107 . Abdominal Pain/Male - HPI Summary HPI Summary: 76 y/o male presents to the ED with a complaint of acute, constant, moderate, diffuse abdominal pain that began around 1600 today. Associated symptoms include nausea and vomiting. He denies any diarrhea, CP, or SOB. Hx of collapsed small intestine in 2010 and of a twisted intestine. - History of Current Complaint Chief Complaint: EDNauseaVomitDiarrh Stated Complaint: VOMITING Time Seen by Provider: 08/03/16 00:50 Hx Obtained From: Patient Onset/Duration: Sudden Onset, Lasting Days, Still Present Timing: Constant Severity Initially: Moderate Severity Currently: Moderate Location: Diffuse Radiates: No Character: Sharp Aggravating Factor(s): Other: - UNKNOWN Alleviating Factor(s): Other: - unknown Associated Signs And Symptoms: Positive: Nausea, Vomiting - Risk Factors Cardiac Risk Factors: Smoking - Allergies/Home Medications Allergies/Adverse Reactions: Allergies Allergy/AdvReac Type Severity Reaction Status Date / Time No Known Allergies Allergy Verified 07/03/16 15:07 PMH/Surg Hx/FS Hx/Imm Hx Endocrine/Hematology History: Denies: Hx Diabetes, Hx Anemia, Hx Unexplained Bleeding Cardiovascular History: Reports: Hx Hypercholesterolemia, Other Cardiovascular Problems/Disorders - upper left chamber has "extrea beats" per patient Denies: Hx Aneurysm, Hx Angina, Hx Angioplasty, Hx Auto Implanted Cardiovert Defib, Hx Cardiac Arrest, Hx Cardiomegaly, Hx Congenital Heart Disease, Hx Congestive Heart Failure, Hx Coronary Artery Disease, Hx Deep Vein Thrombosis, Hx Embolism, Hx Hypotension, Hx Hypertension, Hx Pacemaker/ICD, Hx Peripheral Vascular Disease, Hx Rheumatic Fever, Hx Syncope, Hx Valvular Heart Disease Respiratory History: Reports: Hx Chronic Obstructive Pulmonary Disease (COPD), Hx Lung Cancer, Hx Pneumonia, Other Respiratory Problems/Disorders - lung lesions pulmonary resection -adenocarcinoma Denies: Hx Asthma, Hx Chronic Bronchitis, Hx Cystic Fibrosis, Hx Pleural Effusion, Hx Pulmonary Edema, Hx Pulmonary Embolism, Hx Seasonal Allergies, Hx Sleep Apnea GI History: Reports: Hx Gastroesophageal Reflux Disease, Other GI Disorders - SBO, volvulus Denies: Hx Cirrhosis, Hx Crohn's Disease, Hx Diverticulosis, Hx Gall Bladder Disease, Hx Gastrointestinal Bleed, Hx Hiatal Hernia, Hx Irritable Bowel, Hx Jaundice, Hx Obstructive Bowel, Hx Ileostomy, Hx Pyloric Stenosis, Hx Ulcer History: Denies: Hx Dialysis Musculoskeletal History: Reports: Other Musculoskeletal History - recent r shoulder injury Denies: Hx Back Problems Sensory History: Reports: Hx Contacts or Glasses Denies: Hx Cataracts, Hx Eye Injury, Hx Eye Prosthesis, Hx Glaucoma, Hx Legally Blind, Hx Macular Degeneration, Hx Vision Problem, Hx Deafness, Hx Hearing Aid, Hx Hearing Problem, Other Sensory Impairments Opthamlomology History: Reports: Hx Contacts or Glasses Denies: Hx Cataracts, Hx Eye Injury, Hx Eye Prosthesis, Hx Glaucoma, Hx Legally Blind, Hx Macular Degeneration, Hx Vision Problem, Other Sensory Impairments Neurological History: Denies: Hx Dementia, Hx Developmental Delay, Hx Headaches, Hx Migraine, Hx Nerve Disease, Hx Seizures, Hx Spinal Cord Injury, Hx Transient Ischemic Attacks (TIA), Other Neuro Impairments/Disorders Psychiatric History: Denies: Hx Panic Disorder - Cancer History Cancer Type, 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 Hx Chemotherapy: No Hx Radiation Therapy: No Hx Palliative Cancer Treatment: No - Surgical History Surgery Procedure, Year, and Place: left ear/left knee/twisted colon-resection SX/left upper lung lobe removed Hx Anesthesia Reactions: No Infectious Disease History: No Infectious Disease History: Denies: Hx Clostridium Difficile, Hx Hepatitis, Hx Human Immunodeficiency Virus (HIV), Hx of Known/Suspected MRSA, Hx Shingles, Hx Tuberculosis - father had it, patient treated for it at 12 years of age, History Other Infectious Disease, Traveled Outside the [place] in Last 30 Days - Family History Known Family History: Positive: Cardiac Disease - Hx Father CHF - Social History Occupation: Retired Lives: With Family Alcohol Use: None Substance Use Type: Reports: None Smoking Status (MU): Current Some Day Smoker Type: Cigarettes Length of Time of Smoking/Using Tobacco: 50 years Have You Smoked in the Last Year: Yes Review of Systems Constitutional: Negative Eyes: Negative ENT: Negative Cardiovascular: Negative Respiratory: Negative Positive: Abdominal Pain, Vomiting, Nausea. Negative: Diarrhea Genitourinary: Negative Musculoskeletal: Negative Skin: Negative Neurological: Negative Psychological: Normal All Other Systems Reviewed And Are Negative: Yes Physical Exam Triage Information Reviewed: Yes Vital Signs On Initial Exam: Initial Vitals Temp Pulse Resp BP Pulse Ox 97.6 F 106 16 102/69 94 08/03/16 00:33 08/03/16 00:33 08/03/16 00:33 08/03/16 00:33 08/03/16 00:33 Vital Signs Reviewed: Yes Appearance: Positive: Well-Appearing, No Pain Distress Skin: Positive: Warm, Skin Color Reflects Adequate Perfusion, Dry Head/Face: Positive: Normal Head/Face Inspection Eyes: Positive: EOMI, KALIA ENT: Positive: Normal ENT inspection Neck: Positive: Supple, Nontender Respiratory/Lung Sounds: Positive: Clear to Auscultation, Breath Sounds Present Cardiovascular: Positive: Normal, RRR, Pulses are Symmetrical in both Upper and Lower Extremities Abdomen Description: Positive: Soft, Other: - diffuse abdominal tenderness Bowel Sounds: Positive: Present Musculoskeletal: Positive: Normal, Strength/ROM Intact Neurological: Positive: Normal, Sensory/Motor Intact, Alert, Oriented to Person Place, Time Psychiatric: Positive: Normal, Affect/Mood Appropriate AVPU Assessment: Alert - Carl Coma Scale Coma Scale Total: 15 Diagnostics - Vital Signs Vital Signs Temp Pulse Resp BP Pulse Ox 08/03/16 00:33 97.6 F 106 16 102/69 94 - Laboratory Lab Results: Lab Results 08/03/16 08/03/16 08/03/16 Range/Units 01:50 01:50 01:50 WBC 11.2 H (3.5-10.8) 10^3/ul RBC 5.17 (4.0-5.4) 10^6/ul Hgb 15.6 (14.0-18.0) g/dl Hct 47 (42-52) % MCV 90 (80-94) fL MCH 30 (27-31) pg MCHC 33 (31-36) g/dl RDW 15 (10.5-15) % Plt Count 323 (150-450) 10^3/ul MPV 8 (7.4-10.4) um3 Neut % (Auto) 86.6 H (38-83) % Lymph % (Auto) 7.8 L (25-47) % Gordon % (Auto) 3.4 (1-9) % Eos % (Auto) 1.1 (0-6) % Baso % (Auto) 1.1 (0-2) % Absolute Neuts (auto) 9.7 H (1.5-7.7) 10^3/ul Absolute Lymphs (auto) 0.9 L (1.0-4.8) 10^3/ul Absolute Monos (auto) 0.4 (0-0.8) 10^3/ul Absolute Eos (auto) 0.1 (0-0.6) 10^3/ul Absolute Basos (auto) 0.1 (0-0.2) 10^3/ul Absolute Nucleated RBC 0 10^3/ul Nucleated RBC % 0 INR (Anticoag Therapy) 0.90 (0.89-1.11) APTT 30.0 (26.0-36.3) seconds Sodium 134 (133-145) mmol/L Potassium 4.4 (3.5-5.0) mmol/L Chloride 97 L (101-111) mmol/L Carbon Dioxide 28 (22-32) mmol/L Anion Gap 9 (2-11) mmol/L BUN 15 (6-24) mg/dL Creatinine 0.99 (0.67-1.17) mg/dL Est GFR ( Amer) 95.0 (>60) Est GFR (Non-Af Amer) 73.9 (>60) BUN/Creatinine Ratio 15.2 (8-20) Glucose 114 H (70-100) mg/dL Lactic Acid (0.5-2.0) mmol/L Calcium 10.4 H (8.6-10.3) mg/dL Total Bilirubin 0.80 (0.2-1.0) mg/dL AST 15 (13-39) U/L ALT 11 (7-52) U/L Alkaline Phosphatase 43 (34-104) U/L Troponin I 0.01 (<0.04) ng/mL Total Protein 7.6 (6.4-8.9) g/dL Albumin 4.2 (3.2-5.2) g/dL Globulin 3.4 (2-4) g/dL Albumin/Globulin Ratio 1.2 (1-3) Lipase 13 (11.0-82.0) U/L 08/03/16 Range/Units 01:50 WBC (3.5-10.8) 10^3/ul RBC (4.0-5.4) 10^6/ul Hgb (14.0-18.0) g/dl Hct (42-52) % MCV (80-94) fL MCH (27-31) pg MCHC (31-36) g/dl RDW (10.5-15) % Plt Count (150-450) 10^3/ul MPV (7.4-10.4) um3 Neut % (Auto) (38-83) % Lymph % (Auto) (25-47) % Gordon % (Auto) (1-9) % Eos % (Auto) (0-6) % Baso % (Auto) (0-2) % Absolute Neuts (auto) (1.5-7.7) 10^3/ul Absolute Lymphs (auto) (1.0-4.8) 10^3/ul Absolute Monos (auto) (0-0.8) 10^3/ul Absolute Eos (auto) (0-0.6) 10^3/ul Absolute Basos (auto) (0-0.2) 10^3/ul Absolute Nucleated RBC 10^3/ul Nucleated RBC % INR (Anticoag Therapy) (0.89-1.11) APTT (26.0-36.3) seconds Sodium (133-145) mmol/L Potassium (3.5-5.0) mmol/L Chloride (101-111) mmol/L Carbon Dioxide (22-32) mmol/L Anion Gap (2-11) mmol/L BUN (6-24) mg/dL Creatinine (0.67-1.17) mg/dL Est GFR ( Amer) (>60) Est GFR (Non-Af Amer) (>60) BUN/Creatinine Ratio (8-20) Glucose (70-100) mg/dL Lactic Acid 1.1 (0.5-2.0) mmol/L Calcium (8.6-10.3) mg/dL Total Bilirubin (0.2-1.0) mg/dL AST (13-39) U/L ALT (7-52) U/L Alkaline Phosphatase (34-104) U/L Troponin I (<0.04) ng/mL Total Protein (6.4-8.9) g/dL Albumin (3.2-5.2) g/dL Globulin (2-4) g/dL Albumin/Globulin Ratio (1-3) Lipase (11.0-82.0) U/L Result Diagrams: 08/03/16 01:50 08/03/16 01:50 Lab Statement: Any lab studies that have been ordered have been reviewed, and results considered in the medical decision making process. - CT ABDOMEN/PELVIS CT CT Interpretation: No Acute Changes - UNREMARKABLE GALLBLADDER., Positive (See Comments) - SLIGHTLY COMPLEX CYSTIC FOCI LEFT KIDNEY. PANCREATIC HEAD CALCIFICATIONS, POSSIBLY CHRONIC PANCREATITIS. ENLARGED PROSTATE. EMPHYSEMA CT Interpretation Completed By: Radiologist - [employer] Abdominal Pain Fem Course/Dx - Course Course Of Treatment: 76 y/o male presents with diffuse abdominal pain with associated tenderness, nausea, and vomiting. After discussing the patient's care with Dr. Plunkett, we will admit the patient to Dr. Plunkett in surgery. - Diagnoses Differential Diagnosis/HQI/PQRI: Appendicitis, Bowel Obstruction, Diverticulitis , Pancreatitis, Ureteral Stone Provider Diagnoses: SBO (small bowel obstruction) - Provider Notifications Discussed Care Of Patient With: Isma Plunkett - surgery Time Discussed With Above Provider: 06:20 - Surgery was consulted about the patient's past medical history to determine what the best discourse is. Dr. Plunkett recommended admission Discharge - Discharge Plan Condition: Stable Disposition: ADMITTED TO [facility] Discharge Disposition Comment: The patient will be admitted to Dr. Plunkett in surgery. Referrals: Surekha Trinidad, [employer] [Primary Care Provider] - The documentation as recorded by the Kishore barboza Aidan accurately reflects the service I personally performed and the decisions made by , Oral Anthony.
[2016-08-03] MEDS ORDERED: NS 0.9% 1000 ML* 1,000 ML IV SCH ×2 (08:30→19:33)
[2016-08-03] MEDS ORDERED: Metoprolol Tartrate IV* 1 MG/ML 5 ML VIAL IV SCH (09:00)
--- NOTE | 2016-08-03 09:51 | RAD ---
Indication: Diverticulitis. Contrast: Administered 79.0 ml of Omnipaque 300 -- mgi/ml CT of the abdomen and pelvis was performed after oral and IV contrast administration. Coronal and sagittal reconstructed images were obtained. Comparison is made with previous exam dated November 13, 2010. The lung bases demonstrate no pleural fluid, nodules or masses. Heart is of normal size without evidence of pericardial effusion. Emphysematous changes are noted. Liver is normal in size. No focal lesions or intrahepatic duct dilatation is noted. The gallbladder demonstrates no calcified gallstones. No pericholecystic fluid or wall thickening is identified. The pancreas demonstrates multiple calcifications in the head of the pancreas likely due to chronic pancreatitis. No evidence of pancreatic duct dilatation is noted. The spleen is normal in size. No adrenal masses are noted. Bilateral adrenal hyperplasia is noted. The kidneys demonstrate symmetric nephrograms without focal lesions. Atherosclerotic aorta is noted. No dilated loops of bowel are noted. Multiple dilated loops of small bowel in the left upper quadrant and bilateral pelvis is noted. The colon is filled with stool. There appears to be a zone of transition with collapsed distal loops of bowel in the right lower quadrant. A zone of transition is likely in the pelvis. The prostate is prominent in size. No hernias are noted. IMPRESSION: Small bowel obstruction with a zone of transition in the pelvis. Decompressed loops of bowel in the right lower quadrant. Enlarged prostate. Likely chronic pancreatitis with calcifications in the head of the pancreas. When compared to previous exam of November 13, 2010 findings appear similar with prior small bowel obstruction..
--- NOTE | 2016-08-03 11:55 | RAD ---
Indication: Nasogastric tube placement. Single frontal view of the chest performed at 1145 hours was reviewed. Comparison is made with previous exam dated July 03, 2016. No mediastinal shift is noted. Heart is of normal size and configuration. Lung lloyd appear clear. Lung lloyd appear hyperinflated. Nasogastric tube appears to be within the stomach. IMPRESSION: NO ACTIVE CARDIOPULMONARY DISEASE IS NOTED. NG TUBE APPEARS TO BE WITHIN THE STOMACH.
[2016-08-03 12:33] LABS: Urine Bilirubin Negative (Negative); Urine Glucose Negative (Negative); Urine Nitrite Negative (Negative)
[2016-08-03] MEDS ORDERED: Spiriva Inhaler DEVICE* 1 EACH DEVICE INH ONE (13:00)
[2016-08-03] MEDS: Metoprolol Tartrate IV* 1 MG/ML 5 ML VIAL IV SCH ×3 (13:04→20:59)
[2016-08-03] MEDS ORDERED: Tiotropium CAP.INH* CAP.INH/18 MCG INH ONE (13:12)
[2016-08-03] MEDS: Pantoprazole IV* 40 MG IV SCH (13:13)
[2016-08-03] MEDS: Heparin VIAL(*) 5000 UNITS/ML VIAL (FIVE THOUSAND) SUBCUT SCH ×2 (13:13→22:10)
--- NOTE | 2016-08-03 21:24 | CONS ---
SURGICAL CONSULTATION REPORT: DATE OF CONSULT: 08/03/16 LOCATION: Room 349. HISTORY OF PRESENT ILLNESS: I was contacted by the emergency room physician in the overnight period regarding Mr. Valdovinos, a 76-year-old gentleman, who complained of a day of severe abdominal pain, mostly in the mid abdomen associated with significant nausea, vomiting, and retching. He worsened throughout the day and ultimately called an ambulance and was taken to the emergency room. Work up in the emergency room included labs and a CT scan. These images were reviewed, it was consistent with small bowel obstruction and we were contacted. The patient has a history of small bowel obstruction. 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 He went back to the operating room a year later with small bowel obstruction for a laparotomy and lysis of adhesions and then again in 2010, he underwent exploratory laparotomy and lysis of adhesions. These operative reports were reviewed. The patient states that this episode is similar to the ones in the past. He has passed a small amount of flatus over the course of the day. His last bowel movement 2 days ago was within normal limits. He has no appetite, but is thirsty. He denies any fevers or chills. Abdominal pain has somewhat improved since arrival. He has had an NG tube placed, has 300 cc out at this point, but given the amount seen on the CT scan, it is unclear if more was removed earlier today. 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 He states that he had been showing some improvement. PAST MEDICAL HISTORY: Includes: 1. Adenocarcinoma of the lung, treated with resection. 2. COPD. 3. Pulmonary hypertension. 4. Active smoker. 5. Previously alcoholic. PAST SURGICAL HISTORY: Abdominal surgeries as above. No additional abdominal surgeries and a left upper lobectomy. MEDICATIONS: Medication list reviewed includes aspirin, but no blood thinners. ALLERGIES: He has no known drug allergies. SOCIAL HISTORY: Former drinker, current smoker. 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 Lives with this . REVIEW OF SYSTEMS: No fevers. No chills. No shortness of breath other than usual. Poor exercise tolerance. No dysuria or hematuria. No change in bowel habits. Currently not obstipated. No bleeding or clotting disorders. PHYSICAL EXAM: Vital signs: He is a afebrile. Vital signs are stable. Heart rate in the 90s and O2 sat 92% on room air with normal respiration rate. General: He is alert and oriented x3. He is in no apparent distress. Head, Ears, Eyes, and throat: Normocephalic, atraumatic. Sclerae anicteric. Mucous membranes are dry. Neck: No lymphadenopathy. Lungs: Clear according to report. Abdomen: Soft, distended. Tender on deep palpation in the mid abdomen overlying the umbilicus. Well healed midline incision. No hernias or masses are noted. Hypoactive bowel sounds throughout. No rebound or guarding. No CVA tenderness. Rectal exam not performed. Extremities without pitting edema or tenderness. DIAGNOSTIC STUDIES/LAB DATA: Labs show a white count of 11.2 with a left shift. LFTs within normal limits. Metabolic panel within normal limits with a creatinine of 0.99, which is not far off his baseline. Lactic acid 1.1. CT scan of the abdomen and pelvis reviewed report as well as the images shows small bowel obstruction with zone of transition in the pelvis, decompressed loops in first lower quadrant, calcifications within the pancreas consistent with a chronic pancreatitis picture. Stomach was distended, but NG tube has been placed since. IMPRESSION: Small bowel obstruction in a patient with history of this who has shown in the past the need for operative intervention and may do so again this time. PLAN/RECOMMENDATIONS: Plan will be for bowel rest, IV fluids, and repeat labs in the morning. I would like to get an x-ray to assure positioning of NG tube. He will remain n.p.o. Hospitalist service has seen him as well. We will continue to follow him closely. I did not believe he requires antibiotics at this time. The patient should ambulate. CC: [facility]; Surekha Trinidad NP * [id number]/[facility] #: [id number] MTDAyaan
--- NOTE | 2016-08-03 22:23 | HP ---
HISTORY AND PHYSICAL: DATE OF ADMISSION: 08/03/16 PRIMARY CARE PROVIDER: Surekha Trinidad NP ATTENDING PHYSICIAN WHILE IN THE HOSPITAL: Griselda Collazo DO *(report dictated by Braxton Dumont NP) CONSULTING SURGEON: Isma Plunkett MD CHIEF COMPLAINT: Abdominal pain. HISTORY OF PRESENTING ILLNESS: Mr. Valdovinos is a 76-year-old male patient. He has a history of COPD, he has a history of lung cancer. It started as a melanoma and spread to his lung and he had a left upper lobe resection, history of SBOs in the past, Guillain-Hankinson, he is a former alcoholic, and he has a history of hyperlipidemia and GERD. He came into the ER last night. He said around 3 o'clock in the afternoon yesterday, he developed a sudden onset of abdominal discomfort in the center of his abdomen that was diffuse. He said it felt like contractions, it was coming and going. He said it got progressively worse to the point that he could not keep anything down. He was vomiting. He felt more distended. He denied any recent fevers or chills or any recent shortness of breath or chest pain. He came to the ER, was evaluated and found to have an SBO. He does carry a history of having a volvulus in the past. He has had 2 surgeries of lysis of adhesions and he has had a left upper lobe lobectomy. He came in, he was evaluated and because of the SBO, we were asked to evaluate for admission. He recently was here in our rehabilitation unit for presumed diagnosis of Guillain-Hankinson. Since then he has been recovering and he states he has regained back most of his strength. He denies any numbness or tingling. Currently denies having any weakness in his lower extremities. Because of the SBO and his complex medical history, we were asked to evaluate for admission. 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 3. COPD. 4. History of alcoholism in the past. 5. Hyperlipidemia. 6. GERD. PAST SURGICAL HISTORY: 1. He has had a left upper lobe lobectomy. 2. He has had a volvulus repair. 3. He has had bowel resection and lysis of adhesions and 2 exploratory laparotomies. HOME MEDICATIONS: Include: 1. Spiriva 1 capsule inhaled daily. 2. Pravachol 40 mg at bedtime. 3. Prilosec 20 mg p.o. daily. 4. Metoprolol XL 25 mg daily. 5. Gabapentin 300 mg p.o. t.i.d. 6. Aspirin 81 mg daily. 7. Ventolin 2 puffs inhaled every 4 hours as needed. ALLERGIES: His allergies to medications include no known drug allergies. FAMILY HISTORY: Reviewed and essentially is noncontributory. SOCIAL HISTORY: He is still smoking. He states he is cutting back. He has been a lifelong smoker. He do not drink alcohol currently. Surrogate decision maker is his . ALLERGIES TO MEDICATIONS: Include no known drug allergies. REVIEW OF SYSTEMS: There is no documented fever. He denied any significant weight change with the exception in the last couple of weeks he does state that he did lose some weight while rehabbing. He states he normally runs between 130 and 140 and he is 131 now. He denies having any chest pain. Denies any shortness of breath. He does admit to having abdominal discomfort, but it is improving. He denies having any chest pain. There is no shortness of breath. He denies any nausea or vomiting. States the NG tube is making him feel better. He denies any lightheadedness or loss of consciousness. No seizures. Review of 14 systems completed, all others negative. PHYSICAL EXAMINATION GENERAL: At this time, Mr. Valdovinos is a 76-year-old male patient. He appears to be chronically ill. He is sitting in the hospital bed. He does not appear to be in any acute distress. VITAL SIGNS: Reveals blood pressure 118/64 with a pulse of 96, respirations 18 , O2 sat 93%, and temperature 98.5. HEENT: Head: Atraumatic. Eyes: Sclerae was anicteric. NECK: Supple. Throat: Oral mucosa appeared to be dry. No oropharyngeal erythema. LUNGS: He did have slight wheeze on the right lower lobe. He had equal diaphragmatic expansion. HEART: Heart sounds S1, S2. Regular rate and rhythm. No murmurs, rubs, or gallops. ABDOMEN: It was mildly distended. It was tender in the midabdominal area and in the epigastric area. Again, mildly distended. Bowel sounds hypoactive. EXTREMITIES: Pulses were 2+ throughout. He had 5/5 strength. NEUROLOGIC: He is awake, he is alert, and he is oriented x3. His tongue is midline. Field Naturalist were equal. He had no gross focal deficits. SKIN: Intact. DIAGNOSTIC STUDIES/LAB DATA: Labs today revealed WBC of 11.2, RBC of 5.17, hemoglobin of 15.6, hematocrit of 47, and platelet count was 323. INR was 0.90 and PTT of 30. Sodium was 134, potassium is 4.4, chloride of 97, bicarb 28, BUN 15, creatinine 0.99, glucose 114, lactate 1.1, and calcium 104. AST 15, ALT 11, alk phos was 43. Troponin 0.01. Lipase 13. Urine is pending. He did have an abdominopelvic CT scan obtained today. Impression: Small bowel obstruction with zone of transition in the pelvis, decompressed loops of the bowel in the right lower quadrant, enlarged prostate, likely chronic pancreatitis with calcifications in the head of the pancreas. When compared to the previous exam of 11/13/10, findings were similar to prior small bowel obstruction. The patient also had an EKG obtained today, which showed a normal sinus rhythm with a rate of 90. He did have a PAC and no ST elevations or T-wave inversions. It was reviewed to a previous EKG, it does appear to be similar. Old medical records were reviewed. ASSESSMENT AND PLAN: Mr. Valdovinos is a 76-year-old male patient coming in to our hospital today with complaints of abdominal pain, found to have a small bowel obstruction. He will be admitted under inpatient status for: 1. Small bowel obstruction: At this point, we will go ahead and hydrate the patient. Place him on NG tube to low wall suction. We will check an abdominal x- ray in the morning. We will have Surgery evaluate the patient as he does have a complex surgical history. 2. History of Guillain-Hankinson: No current symptoms at this point. We are going to monitor him for any weakness or complaints of numbness or tingling. With low threshold, we will consult Neurology should he offer any of those complaints, but at this point he has 5/5 strength in all extremities. He seems to be recovering well. We will continue to follow when these acute episodes resolve. Again, we will need to have PT working with him as well. 3. History of lung cancer: He will follow with his primary. 4. Chronic obstructive pulmonary disease: Continue his Spiriva. We will also continue p.r.n. nebs. 5. History of irregular heartbeat: We will continue his Lopressor and switch to IV. 6. Hyperlipidemia: We will hold his statin. 7. Gastroesophageal reflux disease: Continue PPI therapy. 8. DVT prophylaxis: He is high risk. He will be placed on heparin subcu. 9. Code status: Full code. 10. Fluids, electrolytes, and nutrition: He is n.p.o. He will have normal saline at 100. TIME SPENT: Time spent on the admission was 60 minutes; greater than half the time was spent [id number] with the patient obtaining my history and physical, the other half time is spent going over the plan of care with the patient and implementing plan of care. I discussed the plan of care with my attending, Dr. Collazo. She is in agreement. BRAXTON DUMONT NP CC: Dr. Plunkett; Surekha Trinidad NP * [id number]/[facility] #: [id number] MORAIMA
[2016-08-04] MEDS: Metoprolol Tartrate IV* 1 MG/ML 5 ML VIAL IV SCH ×5 (03:20→21:00)
[2016-08-04] MEDS: Heparin VIAL(*) 5000 UNITS/ML VIAL (FIVE THOUSAND) SUBCUT SCH ×3 (05:44→21:50)
[2016-08-04 07:00] LABS: Hematocrit 40 % (42-52); Hemoglobin 13.3 g/dl (14.0-18.0); Mean Corpuscular HGB Conc 33 g/dl (31-36); Mean Corpuscular Hemoglobin 30 pg (27-31); Mean Corpuscular Volume 91 fL (80-94); Mean Platelet Volume 8 um3 (7.4-10.4); Red Cell Distribution Width 15 % (10.5-15); White Blood Count 5.2 10^3/ul (3.5-10.8)
[2016-08-04 07:15] LABS: Calcium 8.8 mg/dL (8.6-10.3); EGFR African American 118.1 (>60); EGFR Non-African American 91.8 (>60); Potassium 3.9 mmol/L (3.5-5.0)
--- NOTE | 2016-08-04 07:52 | RAD ---
HISTORY: Small bowel obstruction COMPARISONS: CT dated August 03, 2016 VIEWS: Frontal supine and upright views of the abdomen. FINDINGS: BOWEL: Again noted are dilated loops of small bowel with multiple differential air-fluid levels. The appearance is similar to the April 05, 2016 examination. CALCULI: There are no abnormal calculi. BONES AND SOFT TISSUES: There are no osseous abnormalities. OTHER FINDINGS: The lung bases are clear. There is no subphrenic gas. A gastric tube is noted with the tip in the left upper quadrant. IMPRESSION: PERSISTENT SMALL BOWEL OBSTRUCTION.
[2016-08-04] MEDS: Tiotropium CAP.INH* CAP.INH/18 MCG INH SCH (08:02)
--- NOTE | 2016-08-04 09:20 | PN ---
Progress Note - Progress Note SOAP: Subjective: [pt seen and examined. BM yesterday and again today. some flatus. pos vomiting around NGT. Pt feels "the same." Objective: af hr 100s, normotensive NGT approx 200/24h a and o x3, nad abdo: soft/distended, tender on deep palpation labs noted axr noted Assessment: SBO, dehydration Plan: increase IVF OR likely tomorrow if no improvement labs in am
[2016-08-04] MEDS: Pantoprazole IV* 40 MG IV SCH (10:54)
[2016-08-04] MEDS: Ondansetron INJ* 2 MG/ML VIAL IV SCH ×4 (10:54→23:09)
[2016-08-04] MEDS: Phenol 1.4% Spray* 177 ML BTL MT PRN ×2 (10:59→23:10)
--- NOTE | 2016-08-04 18:15 | PN ---
Subjective Date of Service: 08/04/16 Interval History: Pt states he is passing flatus and having some BM, abd feels less distended. No more pain, no emesis. No new c/o. Objective Active Medications: Albuterol (Ventolin 2.5 Mg/3 Ml Neb.Kavita*) 2.5 mg INH Q2H PRN PRN Reason: SOB/WHEEZING Heparin Sodium (Porcine) (Heparin Vial(*)) 5,000 units SUBCUT Q8HR [facility] Last Admin: 08/04/16 14:52 Dose: 5,000 units Potassium Chloride/Dextrose (D5w 1/2 Ns Kcl 20 Meq 1000 Ml*) 1,000 mls @ 150 mls/hr IV PER RATE [facility] Metoprolol Tartrate (Lopressor Iv*) 5 mg IV Q6H [facility] Last Admin: 08/04/16 14:52 Dose: 5 mg Ondansetron HCl (Zofran Inj*) 4 mg IV Q4H [facility] Last Admin: 08/04/16 17:48 Dose: Not Given Pantoprazole Sodium (Protonix Iv*) 40 mg IV Q24H [facility] Last Admin: 08/04/16 10:54 Dose: 40 mg Phenol/Menthol (Chloroseptic Throat [place]*) 1 spray MT Q4H PRN PRN Reason: SORE THROAT Last Admin: 08/04/16 10:59 Dose: 1 spray Tiotropium [place] (Spiriva Cap.Inh*) 1 cap INH 0900 [facility] Last Admin: 08/04/16 08:02 Dose: 1 inh Vital Signs 08/03/16 08/03/16 08/03/16 19:09 19:20 20:58 Temperature 98.6 F Pulse Rate 102 103 Respiratory 16 17 Rate Blood Pressure 130/72 114/58 (mmHg) O2 Sat by Pulse 96 Oximetry 08/03/16 08/04/16 08/04/16 23:54 03:17 07:30 Temperature 98.0 F 97.5 F 97.4 F Pulse Rate 98 102 88 Respiratory 16 16 18 Rate Blood Pressure 128/66 127/64 115/67 (mmHg) O2 Sat by Pulse 95 94 96 Oximetry 08/04/16 08/04/16 08/04/16 08:00 11:33 15:25 Temperature 98.1 F 97.9 F Pulse Rate 89 77 Respiratory 18 18 16 Rate Blood Pressure 127/59 109/60 (mmHg) O2 Sat by Pulse 92 94 Oximetry 08/04/16 15:49 Temperature Pulse Rate 77 Respiratory 16 Rate Blood Pressure (mmHg) O2 Sat by Pulse 94 Oximetry Oxygen Devices in Use Now: None Appearance: Alert, partly up in bed. Neutral affect. Looks comfortable. Eyes: No Scleral Icterus Neck: NL Appearance and Movements; NL JVP, No Thyroid Enlargement, Masses Respiratory: Symmetrical Chest Expansion and Respiratory Effort, Clear to Auscultation, Clear to Percussion Cardiovascular: NL Sounds; No Murmurs; No JVD, RRR, No Edema, - Abdominal: No Hepatosplenomegaly, - - soft, not tender. Gurgling BS. Extremities: No Edema, No Clubbing, Cyanosis, - Skin: No Rash or Ulcers, No Nodules or Sclerosis, - Neurological: Alert and Oriented x 3, NL Sensation Result Diagrams: 08/04/16 06:29 08/04/16 06:29 Additional Lab and Data: Lab Results 08/03/16 08/03/16 08/03/16 Range/Units 01:50 01:50 01:50 WBC 11.2 H (3.5-10.8) 10^3/ul RBC 5.17 (4.0-5.4) 10^6/ul Hgb 15.6 (14.0-18.0) g/dl Hct 47 (42-52) % MCV 90 (80-94) fL MCH 30 (27-31) pg MCHC 33 (31-36) g/dl RDW 15 (10.5-15) % Plt Count 323 (150-450) 10^3/ul MPV 8 (7.4-10.4) um3 Neut % (Auto) 86.6 H (38-83) % Lymph % (Auto) 7.8 L (25-47) % Yancey % (Auto) 3.4 (1-9) % Eos % (Auto) 1.1 (0-6) % Baso % (Auto) 1.1 (0-2) % Absolute Neuts (auto) 9.7 H (1.5-7.7) 10^3/ul Absolute Lymphs (auto) 0.9 L (1.0-4.8) 10^3/ul Absolute Monos (auto) 0.4 (0-0.8) 10^3/ul Absolute Eos (auto) 0.1 (0-0.6) 10^3/ul Absolute Basos (auto) 0.1 (0-0.2) 10^3/ul Absolute Nucleated RBC 0 10^3/ul Nucleated RBC % 0 INR (Anticoag Therapy) 0.90 (0.89-1.11) APTT 30.0 (26.0-36.3) seconds Sodium 134 (133-145) mmol/L Potassium 4.4 (3.5-5.0) mmol/L Chloride 97 L (101-111) mmol/L Carbon Dioxide 28 (22-32) mmol/L Anion Gap 9 (2-11) mmol/L BUN 15 (6-24) mg/dL Creatinine 0.99 (0.67-1.17) mg/dL Est GFR ( Amer) 95.0 (>60) Est GFR (Non-Af Amer) 73.9 (>60) BUN/Creatinine Ratio 15.2 (8-20) Glucose 114 H (70-100) mg/dL Lactic Acid (0.5-2.0) mmol/L Calcium 10.4 H (8.6-10.3) mg/dL Total Bilirubin 0.80 (0.2-1.0) mg/dL AST 15 (13-39) U/L ALT 11 (7-52) U/L Alkaline Phosphatase 43 (34-104) U/L Troponin I 0.01 (<0.04) ng/mL Total Protein 7.6 (6.4-8.9) g/dL Albumin 4.2 (3.2-5.2) g/dL Globulin 3.4 (2-4) g/dL Albumin/Globulin Ratio 1.2 (1-3) Lipase 13 (11.0-82.0) U/L 08/03/16 Range/Units 01:50 WBC (3.5-10.8) 10^3/ul RBC (4.0-5.4) 10^6/ul Hgb (14.0-18.0) g/dl Hct (42-52) % MCV (80-94) fL MCH (27-31) pg MCHC (31-36) g/dl RDW (10.5-15) % Plt Count (150-450) 10^3/ul MPV (7.4-10.4) um3 Neut % (Auto) (38-83) % Lymph % (Auto) (25-47) % Yancey % (Auto) (1-9) % Eos % (Auto) (0-6) % Baso % (Auto) (0-2) % Absolute Neuts (auto) (1.5-7.7) 10^3/ul Absolute Lymphs (auto) (1.0-4.8) 10^3/ul Absolute Monos (auto) (0-0.8) 10^3/ul Absolute Eos (auto) (0-0.6) 10^3/ul Absolute Basos (auto) (0-0.2) 10^3/ul Absolute Nucleated RBC 10^3/ul Nucleated RBC % INR (Anticoag Therapy) (0.89-1.11) APTT (26.0-36.3) seconds Sodium (133-145) mmol/L Potassium (3.5-5.0) mmol/L Chloride (101-111) mmol/L Carbon Dioxide (22-32) mmol/L Anion Gap (2-11) mmol/L BUN (6-24) mg/dL Creatinine (0.67-1.17) mg/dL Est GFR ( Amer) (>60) Est GFR (Non-Af Amer) (>60) BUN/Creatinine Ratio (8-20) Glucose (70-100) mg/dL Lactic Acid 1.1 (0.5-2.0) mmol/L Calcium (8.6-10.3) mg/dL Total Bilirubin (0.2-1.0) mg/dL AST (13-39) U/L ALT (7-52) U/L Alkaline Phosphatase (34-104) U/L Troponin I (<0.04) ng/mL Total Protein (6.4-8.9) g/dL Albumin (3.2-5.2) g/dL Globulin (2-4) g/dL Albumin/Globulin Ratio (1-3) Lipase (11.0-82.0) U/L Assess/Plan/Problems-Billing Assessment: - Patient Problems (1) SBO (small bowel obstruction) Current Visit: Yes Status: Acute Code(s): K56.69 - OTHER INTESTINAL OBSTRUCTION SNOMED Code(s): 316757706 Comment: Continue NG drainage and IV fluids. Labs in AM. (2) Tobacco abuse Current Visit: No Status: Acute Code(s): Z72.0 - TOBACCO USE SNOMED Code(s ): 933366040 Comment: Pt advised to quit smoking and avoid second hand smoke. (3) Malignant melanoma Current Visit: Yes Status: Acute Code(s): C43.9 - MALIGNANT MELANOMA OF SKIN , UNSPECIFIED SNOMED Code(s): 579723878 Comment: With lung met, s/p NESTOR lobectomy.
[2016-08-04] MEDS: D5W 1/2 NS KCl 20 Meq 1000 ML* 1,000 ML IV SCH (18:32)
[2016-08-05] MEDS: D5W 1/2 NS KCl 20 Meq 1000 ML* 1,000 ML IV SCH ×2 (01:20→07:51)
[2016-08-05] MEDS: Metoprolol Tartrate IV* 1 MG/ML 5 ML VIAL IV SCH ×4 (03:17→20:48)
[2016-08-05] MEDS: Ondansetron INJ* 2 MG/ML VIAL IV SCH ×6 (03:20→23:10)
[2016-08-05] MEDS: Heparin VIAL(*) 5000 UNITS/ML VIAL (FIVE THOUSAND) SUBCUT SCH ×2 (05:44→22:10)
[2016-08-05 06:20] LABS: Hematocrit 34 % (42-52); Hemoglobin 11.3 g/dl (14.0-18.0); Mean Corpuscular HGB Conc 33 g/dl (31-36); Mean Corpuscular Hemoglobin 30 pg (27-31); Mean Corpuscular Volume 90 fL (80-94); Mean Platelet Volume 7 um3 (7.4-10.4); Red Blood Count 3.77 10^6/ul (4.0-5.4); Red Cell Distribution Width 15 % (10.5-15); White Blood Count 4.8 10^3/ul (3.5-10.8)
[2016-08-05 06:39] LABS: BUN/Creatinine Ratio 29.9 (8-20); Calcium 8.1 mg/dL (8.6-10.3); EGFR African American 149.1 (>60); Potassium 3.6 mmol/L (3.5-5.0)
[2016-08-05] MEDS: Tiotropium CAP.INH* CAP.INH/18 MCG INH SCH (08:07)
[2016-08-05] MEDS ORDERED: Midazolam* 1 MG/ML 5 ML VIAL (5 MG) ONE (08:48)
[2016-08-05] MEDS ORDERED: fentaNYL* 50 MCG/ML 2 ML VIAL (100 MCG VIAL) ONE (08:48)
[2016-08-05] MEDS ORDERED: Atracurium* 10 MG/ML 10 ML VIAL ONE (08:48)
[2016-08-05] MEDS ORDERED: KETAMINE HCL* 50 MG/ML 10 ML VIAL ONE (08:48)
[2016-08-05] MEDS ORDERED: ceFAZolin 2 GM PREMIX(*) 2 GM/50 ML BAG IVPB ONE (10:00)
[2016-08-05] MEDS ORDERED: Ondansetron INJ* 2 MG/ML VIAL IV PRN (11:33)
[2016-08-05] MEDS ORDERED: PROCHLORPERAZINE INJ 5 MG/ML 2 ML VIAL IV PRN (11:33)
[2016-08-05] MEDS ORDERED: Lactated Ringers 500 ml BAG* 500 ML IV PRN (11:33)
[2016-08-05] MEDS ORDERED: Morphine INJ* 2 MG/ML 1 ML SYRINGE IV PRN (11:41)
[2016-08-05] MEDS ORDERED: Ondansetron INJ* 2 MG/ML VIAL ONE (12:40)
[2016-08-05] MEDS ORDERED: Glycopyrrolate IV* 0.2 MG/ML 1 ML VIAL ONE (12:40)
[2016-08-05] MEDS ORDERED: Neostigmine Methylsulfate* 2 MG/2 ML SYRINGE ONE (12:40)
[2016-08-05] MEDS ORDERED: Lidocaine 2% PF * 5 ML VIAL ONE (12:40)
[2016-08-05] MEDS ORDERED: Dexamethasone IV* 4 MG/ML 1 ML (4 MG) ONE (12:41)
[2016-08-05] MEDS ORDERED: Morphine INJ* 10 MG/ML 1 ML SYRINGE ONE ×2 (12:42→13:26)
[2016-08-05] MEDS ORDERED: Flumazenil* 0.1 MG/ML 5 ML MDV ONE (12:43)
[2016-08-05] MEDS ORDERED: HYDROmorphone* 1 MG/ML 1 ML SYR IV SLOW PU PRN (13:03)
[2016-08-05] MEDS ORDERED: Ropivacaine 0.2% EPIDURAL* 200 MG/100 ML BAG EPIDURAL ONE (13:08)
--- NOTE | 2016-08-05 13:12 | PN ---
Progress Note - Progress Note Note: Brief Operative Note: Pre-op: Small bowel obstruction Post-op: Same Procedure: Exploratory laparotomy with lysis of adhesions Surgeon: Dr. Plunkett [employer] Operator: TISHA Dennis Zenia: GETA EBL: < 100 cc Fluids: LR 2000 cc Catheter: Cardoza to gravity Drains: None Specimen: None Findings: See dictated op note
[2016-08-05] MEDS: Ropivacaine 0.2% EPIDURAL* 200 MG/100 ML BAG EPIDURAL SCH (13:42)
[2016-08-05] MEDS ORDERED: EPHEDrine (Pressors)* 50 MG/ML VIAL ONE (13:46)
[2016-08-05] MEDS ORDERED: Hetastarch in NS* 500 ML IV ONE (13:49)
--- NOTE | 2016-08-05 14:11 | PN ---
Progress Note - Progress Note Note: CRITICAL CARE MEDICINE Date: 08/05/16 Time: 1520 SUBJECTIVE: Patient seen and examined post op for hospitalist service. PHYSICAL EXAM: thin, frail Vital Signs: Reviewed. 4L O2 Neurologic: awake, communicating. HEENT: pupils equal. Sclera anicteric. Trachea midline. Cardiovascular: S1 S2 Respiratory: clear Abdomen: post op dressing applied, no bs, pain fine Extremities: Warm. Access: piv LABS: Reviewed. IMAGING: Reviewed. MEDICATIONS: Reviewed. ASSESSMENT: 76 M with SBO now s/p OR failing conservative management. h/o recent GBS h/o lung ca s/p lobectomy copd PLAN: Neurologic: pain control adequate and f/u needs. no new neuro dynamics. Cardiovascular: Perfusing. vol status ok and remains on fluids as is Respiratory: spiriva. prn nebs. IS Gastrointestinal: surgical f/u. npo. ng for now. sup Renal/Metabolic: f/u lytes and uout Infectious Disease: no infective burden Hematology: stable. f/u. hsq Endocrine: stable Musculoskeletal: oob. avoid deconditioning. Psych/Social: pt expresses understanding Supportive and preventative care as ordered. SUP: on ppi VTE prophylaxis: heparin Disposition: ICU overnight and likely floor in am Code Status: Full Critical Care Time: 25min Yue Cruz DO
[2016-08-05] MEDS ORDERED: Phenylephrine INJ* 10 MG/ML 1 ML VIAL (10 MG) ONE (14:57)
[2016-08-05] MEDS ORDERED: Phenylephrine INJ* 50 MG in NS 0.9% 250 ML* 245 ML IV SCH (16:00)
[2016-08-05] MEDS: Pantoprazole IV* 40 MG IV SCH (20:45)
[2016-08-05] MEDS: Morphine INJ* 2 MG/ML 1 ML SYRINGE IV PRN (23:28)
[2016-08-06] MEDS: Ropivacaine 0.2% EPIDURAL* 200 MG/100 ML BAG EPIDURAL SCH ×2 (02:32→14:37)
[2016-08-06] MEDS: Metoprolol Tartrate IV* 1 MG/ML 5 ML VIAL IV SCH ×4 (02:33→21:03)
[2016-08-06] MEDS: Ondansetron INJ* 2 MG/ML VIAL IV SCH ×6 (04:53→21:04)
[2016-08-06] MEDS: Heparin VIAL(*) 5000 UNITS/ML VIAL (FIVE THOUSAND) SUBCUT SCH ×4 (06:13→21:03)
[2016-08-06 06:16] LABS: Hematocrit 32 % (42-52); Hemoglobin 10.8 g/dl (14.0-18.0); Mean Corpuscular HGB Conc 33 g/dl (31-36); Mean Corpuscular Hemoglobin 30 pg (27-31); Mean Corpuscular Volume 91 fL (80-94); Mean Platelet Volume 8 um3 (7.4-10.4); Red Blood Count 3.58 10^6/ul (4.0-5.4); Red Cell Distribution Width 15 % (10.5-15); White Blood Count 3.6 10^3/ul (3.5-10.8)
[2016-08-06 06:28] LABS: BUN/Creatinine Ratio 22.2 (8-20); EGFR African American 137.2 (>60); EGFR Non-African American 106.7 (>60); Magnesium 1.4 mg/dL (1.9-2.7); Phosphorus 3.3 mg/dL (2.5-5.0); Potassium 3.8 mmol/L (3.5-5.0)
--- NOTE | 2016-08-06 07:35 | PN ---
Progress Note - Progress Note Note: Anesthesia epidural followup. The pt did well over night. His pain seems well controlled. Neuro ok. site clear. VSS. Alert. s/p exp. lap. continue epidural and prn morphine.
[2016-08-06] MEDS ORDERED: MAGNESIUM SULFATE 1 GM IV ONE (09:43)
[2016-08-06] MEDS: Tiotropium CAP.INH* CAP.INH/18 MCG INH SCH (09:44)
--- NOTE | 2016-08-06 09:49 | PN ---
Progress Note - Progress Note SOAP: Subjective: Pt seen and examined. Positive abdo pain. No nausea. thirsty. positive flatus. no BM Appreciate anesth note Objective: Temp Pulse Resp BP SpO2 FiO2 100.6 F 81 19 116/60 94 08/05/16 23:25 08/06/16 08:45 08/06/16 08:45 08/06/16 08:19 08/06/16 08:45 On/off nydia overnight a and o x3, nad lungs: decreased BS b/l abdo: less distended, tender, dressing intact labs noted Assessment: POD1 ex lap Plan: pain control OOB incentive spirometer d/c ramírez NGT removed ICU 1 more day
[2016-08-06] MEDS ORDERED: Magnesium Sulfate 1 GM IV* 1 GM/100 ML BAG IV ONE (10:00)
--- NOTE | 2016-08-06 11:19 | PN ---
Progress Note - Progress Note Note: CRITICAL CARE MEDICINE Date: 08/06/16 Time: 1040 SUBJECTIVE: Patient seen and examined. doing fine. PHYSICAL EXAM: thin, frail Vital Signs: Reviewed. 4L O2. bp stable Neurologic: awake, communicating. HEENT: pupils equal. Sclera anicteric. Trachea midline. Cardiovascular: S1 S2 Respiratory: clear Abdomen: post op dressing applied, pain ok Extremities: Warm. dolly Access: piv LABS: Reviewed. IMAGING: Reviewed. MEDICATIONS: Reviewed. ASSESSMENT: 76 M with SBO now s/p OR failing conservative management. h/o recent GBS h/o lung ca s/p lobectomy copd PLAN: Neurologic: pain control adequate and f/u epidural and rx needs. Cardiovascular: Perfusing. vol status stable. Respiratory: spiriva. prn nebs. IS Gastrointestinal: surgical f/u. npo. ng f/u. sup Renal/Metabolic: f/u lytes and uout Infectious Disease: no infective burden Hematology: stable. f/u. hsq Endocrine: stable Musculoskeletal: oob. avoid deconditioning. Psych/Social: pt expresses understanding Supportive and preventative care as ordered. SUP: on ppi VTE prophylaxis: heparin Disposition: ICU currently but floor ready when ok with surg Code Status: Full Critical Care Time: 24min Yue Cruz DO
[2016-08-06] MEDS: Morphine INJ* 2 MG/ML 1 ML SYRINGE IV PRN (16:03)
--- NOTE | 2016-08-06 16:21 | CONS ---
NEUROLOGY CONSULTATION: DATE OF CONSULTATION: 08/06/16 REFERRING PROVIDER: Isma Plunkett MD. CHIEF COMPLAINT: Small bowel obstruction, history of Guillain-Boyd syndrome. HISTORY OF PRESENT ILLNESS: Mr. Valdovinos was admitted with a bowel obstruction and underwent surgery yesterday. I was asked to see him in consultation because of his history of Guillain-Boyd syndrome. I saw Mr. Valdovinos initially on 07/04/16, when he presented with progressive numbness and weakness such that he was unable to walk, which came on over the course of about a week. He was diagnosed with Guillain-Boyd syndrome and had a lumbar puncture with elevated protein and no cells. 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 He was treated with intravenous immunoglobulin for a total of 2 g/kg. He gradually regained strength and was discharged to the physical medicine rehab unit where he spent about 2 weeks. He received home physical therapy after that. He states he was doing quite well and was ambulating with a cane up until his recent intestinal illness. He still gets numbness in his hands and feet, but it is not painful. He has not had any shortness of breath or difficulty swallowing or double vision. He developed severe abdominal pain and presented to the emergency room on . He was diagnosed as having a small bowel obstruction, which he had a history of in the past and had prior surgery in 2005. He underwent surgery by Dr. Plunkett yesterday and feels quite well today. He was up in a chair for 3 hours and has his nasal gastric tube taken out. PAST MEDICAL HISTORY: Notable for Guillain-Boyd syndrome, pulmonary hypertension, alcoholism in remission, active smoker. MEDICATIONS: At home included: 1. Gabapentin 300 mg p.o. t.i.d. 2. Aspirin 81 mg p.o. q. day. 3. Pravastatin 40 mg p.o. q. day. 4. Metoprolol 25 mg p.o. q. day. 5. Spiriva and Ventolin inhalers. Additional medications he is receiving here in the hospital include: 1. Heparin subcutaneous q.8 hours. 2. Morphine 2 mg IV every 30 minutes as needed for pain. 3. Zofran 4 mg IV q.4 hours as needed for nausea or vomiting. 4. Protonix 40 mg IV q. day. PHYSICAL EXAMINATION: On limited physical examination his temperature was 100.2 earlier today temporally, blood pressure is running about 110 to 120 systolic over 50 to 65 diastolic, heart rate is in the 80s. He is alert and in good spirits. Eye movements are normal and there is no ptosis. Facial musculature is strong. Voice is little bit hoarse and soft, but clear. I did not test proximal strength in his lower extremity due to his surgery. He has excellent distal strength in the lower extremities and mild intrinsic hand muscle weakness bilaterally. 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 He is alert and oriented and able to give a pretty good history. He has little bit of problems with recalling the historical details, thinking that he had Guillain -Boyd syndrome quite a few months ago, rather than just last month. IMPRESSION: Impression is that of a good recovery from Guillain-Boyd syndrome. He did not have any respiratory compromise while he was in the hospital or major autonomic problems and still I do not expect any major difficulties interfering with the recovery from his surgery from a neurological perspective. He will continue gabapentin for his neuropathic pain and I will see him in followup in my office once he recovers from his most recent illness. [id number]/[facility] #: [id number] MORAIMA
[2016-08-06] MEDS: Pantoprazole IV* 40 MG IV SCH ×2 (17:37→20:30)
[2016-08-06] MEDS: Gabapentin CAP(*) 300 MG PO SCH (21:18)
--- NOTE | 2016-08-06 23:45 | OP ---
CC: Surekha Trinidad NP * DATE OF OPERATION: 08/05/16 - ROOM #ICU-07 DATE OF : 44 SURGEON: Isma Plunkett MD [employer]PORATE [employer] PROGRAM COORDINATOR: TISHA Abreu ANESTHESIOLOGIST: Dr. Scott. ANESTHESIA: General anesthesia and epidural anesthesia. PRE-OP DIAGNOSIS: Small bowel obstruction. POST-OP DIAGNOSIS: Small bowel obstruction. OPERATIVE PROCEDURE: Exploratory laparotomy, lysis of adhesions. INDICATIONS: Mr. Valdovinos is a 76-year-old gentleman that I have been following since admission with small bowel obstruction. The patient was maintained on n.p.o. status, NG tubes, and showed no significant improvement. Followup x- rays were consistent with small bowel obstruction and I recommended exploratory laparotomy in this patient who has had surgical repair of small bowel obstruction in the past. I outlined the details of procedure going over the risks, benefits, and alternatives. We spoke of the possible complications which included, but not limited to bleeding, infection, injury to adjacent organs, need for additional procedures, hernia, persistent obstruction, and the possibility of finding other etiologies. The patient signed consent. ESTIMATED BLOOD LOSS: Minimal. IV FLUIDS: Crystalloid fluid given. DRAINS: None. SPECIMENS: None. COUNTS: Lap pad count and instrument count were correct at the end of the procedure. DISPOSITION: The patient was transferred to the PACU and on to the ICU for monitored care. DESCRIPTION OF PROCEDURE: The patient was marked in the preoperative area. Anesthesia placed, an arterial line in the left radial artery, and placed an epidural catheter. He was then brought to the operating room, placed on the operating table in supine position. Sequential devices were placed on bilateral lower extremities. The patient received preoperative antibiotics. The patient's abdomen was clipped of hair and then it was prepped and draped in a standard surgical fashion after a Cardoza catheter was inserted. A time-out was performed. Previous midline incision was addressed. We incised most of this area and extended it inferiorly through virgin skin. This was deepened down to the anterior fascia with a scalpel and all the layers of the abdominal wall were incised at the inferior aspect of the incision until entry into the abdomen was made. Serous fluid was encountered upon entry into the abdomen. This was suctioned out and we completed our incision of the abdominal wall throughout the complete skin incision taking off attachments to both small bowel and omentum and transverse colon as we went. Additional adhesions were lysed sharply of the lateral abdominal veliz until we could start to eviscerate the small bowel. Small bowel was markedly dilated, the transverse colon was collapsed, the cecum was dilated. There were no lesions in any of these locations. The liver had no lesions either upon palpation. The stomach was within normal limits with NG tube in place. The descending colon was collapsed. Slow lysis of adhesions was carried out until the entire small bowel could be removed. We ran the small bowel taking adhesions as we went. The collapsed distal small bowel started to fill with the contents upon eviscerating this. No distinct band was identified that led to small bowel obstruction; however, there were significant adhesions just to get the small bowel up and out that led to the likely release and the more distended loops seemed to start to become less distended. We did milk some of the proximal small bowel contents back to the duodenum retrograde such that they got suctioned up via the NG tube. The small bowel was run in its entirety. There was no evidence of lesions. 3- 0 silk sutures were utilized as needed along the bowel wall where the serosa had been violated. We irrigated the abdomen. Hemostasis was excellent. The abdominal contents were then dropped back into the abdomen which was then closed with interrupted #1 Polysorb sutures in a [id number] fashion. The wound was irrigated and the skin edges were reapproximated with skin rosey. The patient tolerated the procedure well, was awoken up in the OR, and transferred to the PACU in stable condition for planned ICU admission. [id number]/[facility] #: [id number] MORAIMA
[2016-08-07] MEDS: Ropivacaine 0.2% EPIDURAL* 200 MG/100 ML BAG EPIDURAL SCH ×2 (01:53→15:25)
[2016-08-07] MEDS: Ondansetron INJ* 2 MG/ML VIAL IV SCH ×7 (03:33→23:08)
[2016-08-07] MEDS: Metoprolol Tartrate IV* 1 MG/ML 5 ML VIAL IV SCH ×4 (03:35→21:24)
[2016-08-07] MEDS: Heparin VIAL(*) 5000 UNITS/ML VIAL (FIVE THOUSAND) SUBCUT SCH ×3 (05:57→21:25)
[2016-08-07 07:25] LABS: Hematocrit 33 % (42-52); Mean Corpuscular HGB Conc 33 g/dl (31-36); Mean Corpuscular Hemoglobin 31 pg (27-31); Mean Corpuscular Volume 92 fL (80-94); Mean Platelet Volume 9 um3 (7.4-10.4); Red Cell Distribution Width 15 % (10.5-15)
[2016-08-07 07:49] LABS: BUN/Creatinine Ratio 31.7 (8-20); EGFR African American 169.4 (>60); EGFR Non-African American 131.7 (>60); Magnesium 1.6 mg/dL (1.9-2.7); Potassium 3.5 mmol/L (3.5-5.0)
--- NOTE | 2016-08-07 08:32 | SURGPN ---
Subjective - Introduction -: Reports doing a little better today. pain is under control, denies N/V, fever or chills. Passing flatus, no BM yet. Feels thirsty and hungry. Also notes occasional wheezing and SOB, but no chest pain. - Medications -: Active Medications Generic Name Dose Route Start Last Admin Trade Name Freq PRN Reason Stop Dose Admin Albuterol 2.5 mg 08/03/16 11:12 Ventolin 2.5 Mg/3 Ml Neb.Kavita* INH Q2H PRN SOB/WHEEZING Gabapentin 300 mg 08/06/16 21:00 08/06/16 21:18 Neurontin Cap(*) PO Not Given TID RANCHO Heparin Sodium (Porcine) 5,000 units 08/05/16 22:00 08/07/16 05:57 Heparin Vial(*) SUBCUT 5,000 units Q8HR RANCHO Administration Ropivacaine 200 mg in 100 mls @ 0 mls/hr 08/05/16 12:00 08/07/16 01:53 Ropivacaine 0.2% Epidural* EPIDURAL 9 mls/hr .PER RATE RANCHO Administration Protocol Per Protocol Lactated Ringer's 500 mls @ 2,000 mls/hr 08/05/16 11:33 Lactated Ringers 500 Ml Bag* IV ONCE PRN FOR SBP < 90 Lactated Ringer's 1,000 mls @ 125 mls/hr 08/05/16 14:00 08/07/16 07:05 Lactated Ringers 1000 Ml Bag* IV 125 mls/hr PER RATE RANCHO Administration Phenylephrine HCl 50 mg/ 250 mls @ 12 mls/hr 08/05/16 16:00 Sodium Chloride IV .(Initial Rate) RANCHO Protocol 40 MCG/MIN Metoprolol Tartrate 5 mg 08/03/16 09:00 08/07/16 03:35 Lopressor Iv* IV 5 mg Q6H RANCHO Administration Morphine Sulfate 2 mg 08/05/16 14:13 08/06/16 16:03 Morphine Inj (Syringe)* IV 2 mg Q30M PRN Administration PAIN - MODERATE TO SEVERE Ondansetron HCl 4 mg 08/04/16 11:00 08/07/16 03:33 Zofran Inj* IV Not Given Q4H RANCHO Ondansetron HCl 2 mg 08/05/16 11:33 Zofran Inj* IV Q6H PRN NAUSEA/VOMITING Pantoprazole Sodium 40 mg 08/05/16 20:00 08/06/16 20:30 Protonix Iv* IV 40 mg 2000 RANCHO Administration Phenol/Menthol 1 spray 08/04/16 10:17 08/04/16 23:10 Chloroseptic Throat [place]* MT 1 spray Q4H PRN Administration SORE THROAT Prochlorperazine Edisylate 2.5 mg 08/05/16 11:33 Compazine Inj* IV Q6H PRN NAUSEA/VOMITING Tiotropium [place] 1 cap 08/04/16 09:00 08/06/16 09:44 Spiriva Cap.Inh* INH 1 inh 0900 RANCHO Administration Objective - Objective -: Awake and alert, breathing is a little laboured, but he notes it's not different from his baseline, in NAD. - Intake and Output -: Intake & Output 08/05/16 08/06/16 08/07/16 08/08/16 06:59 06:59 06:59 06:59 Intake Total 3559 3776 2996 Output Total 2200 780 1005 Balance 1359 2996 1991 Weight 131 lb 136 lb 0.403 oz 138 lb 14.259 oz Intake: IV Fluids 1837 2900 2849 D5W 1/2 NS 20 meq KCL 1837 Hetastarch 500 LR 2400 2849 IVPB 1622 809 LR 809 NS (0.9%) 1622 Medicated IV 67 147 Ropivacaine 67 147 Oral 100 0 0 Output: NG Tube Drainage Amount 700 150 25 Urine 1500 0 Cardoza 600 830 Residual 30 150 Cardoza 16 Fr 30 150 Other: # Bowel Movements 0 Estimated Blood Loss <100 Comment Surgical Physical Exam - Comments -: VSS, Tmax 99.0 Lungs with decreased breath sounds bilat. Mild bilateral wheezes noted. No retractions. Heart RRR, no murmurs. Abdomen soft, NT, less distended. Incision C/D/I. No guarding or rigidity. Ext. no edema. Cardoza with clear urine. Labs noted, Mg 1.6, Phosphorus 2.2 Assessment and Plan - Assessment -: A 76 y/o male, POD#2, s/p exploratory laparotomy with OLIVE, doing better. - Plan Additional Comments: Post-op ileus, resolving, may try sips of clears today. DVT and GI prophylaxis COPD, continue medical management. Await bowel movement. Will discuss with anaesthesia possible epidural d/c today. Transfer to surgical floor later today.
[2016-08-07] MEDS ORDERED: Magnesium Sulf 4 GM/100 ML IV* 4,000 MG/100 ML BAG IVPB ONE (08:37)
[2016-08-07] MEDS: Morphine INJ* 2 MG/ML 1 ML SYRINGE IV PRN (08:40)
[2016-08-07] MEDS: Gabapentin CAP(*) 300 MG PO SCH ×4 (08:51→23:08)
[2016-08-07] MEDS ORDERED: Potassium Phosphate IV* 15 MMOLE in NS 0.9% 250 ML* 250 ML IVPB ONE (09:27)
--- NOTE | 2016-08-07 09:30 | PN ---
Progress Note - Progress Note SOAP: Subjective: Surgical PA note reviewed. Agree with assessment and plan. Orders written. Transfer to floor.
[2016-08-07] MEDS: Tiotropium CAP.INH* CAP.INH/18 MCG INH SCH (09:32)
[2016-08-07] MEDS: Albuterol/Ipratropium NEB.SOL* Albuterol 2.5 MG/Ipratropium 0.5 MG 3 ML INH PRN (09:37)
[2016-08-07] MEDS: D5W 1/2 NS KCl 20 Meq 1000 ML* 1,000 ML IV SCH (09:59)
[2016-08-07] MEDS: Tamsulosin CAP* 0.4 MG PO SCH (10:44)
--- NOTE | 2016-08-07 12:13 | PN ---
Progress Note - Progress Note Note: CRITICAL CARE MEDICINE Date: 08/07/16 Time: 1100 SUBJECTIVE: Patient seen and examined. doing fine. surg taking to floor. PHYSICAL EXAM: thin, frail Vital Signs: Reviewed. bp stable Neurologic: awake, communicating. HEENT: pupils equal. Sclera anicteric. Trachea midline. Cardiovascular: S1 S2 Respiratory: clear Abdomen: post op dressing applied Extremities: Warm. dolly coming out today Access: piv LABS: Reviewed. IMAGING: Reviewed. MEDICATIONS: Reviewed. ASSESSMENT: 76 M with SBO now s/p OR with lysis of adhesion. h/o recent GBS h/o lung ca s/p lobectomy copd PLAN: improving. resp status fine. dolly out. anesthesia f/u for epidural dc and then can re-attempt ramírez dc post. clears and surgical care. Supportive and preventative care as ordered. VTE prophylaxis: heparin Disposition: floor Code Status: Full Critical Care Time: 20min Yue Cruz DO
--- NOTE | 2016-08-07 14:54 | PN ---
Progress Note - Progress Note Note: Anesyhesia epidural followup. Pt doing well, is now on Short Stay uniit. He has walked, taking fluids well, NG is out. Neuro ok, site ok. s/p Exp. lap, continue epidural
[2016-08-07] MEDS: Pantoprazole IV* 40 MG IV SCH (19:49)
[2016-08-07] MEDS: Albuterol 2.5 MG/3 ML NEB.SOL* (0.083%) INH PRN (22:09)
[2016-08-08] MEDS: D5W 1/2 NS KCl 20 Meq 1000 ML* 1,000 ML IV SCH (02:40)
[2016-08-08] MEDS: Ropivacaine 0.2% EPIDURAL* 200 MG/100 ML BAG EPIDURAL SCH (02:41)
[2016-08-08] MEDS: Ondansetron INJ* 2 MG/ML VIAL IV SCH ×5 (03:15→19:18)
[2016-08-08] MEDS: Metoprolol Tartrate IV* 1 MG/ML 5 ML VIAL IV SCH ×3 (03:18→16:17)
[2016-08-08] MEDS: Morphine INJ* 2 MG/ML 1 ML SYRINGE IV PRN ×2 (03:53→21:25)
[2016-08-08] MEDS: Heparin VIAL(*) 5000 UNITS/ML VIAL (FIVE THOUSAND) SUBCUT SCH ×3 (06:00→21:33)
[2016-08-08 07:37] LABS: BUN/Creatinine Ratio 24.5 (8-20); Calcium 7.7 mg/dL (8.6-10.3); EGFR Non-African American 166.4 (>60); Magnesium 1.8 mg/dL (1.9-2.7); Phosphorus 1.7 mg/dL (2.5-5.0); Potassium 3.5 mmol/L (3.5-5.0)
[2016-08-08] MEDS ORDERED: Potassium Phosphate IV* 15 MMOLE in NS 0.9% 250 ML* 250 ML IVPB ONE (08:17)
[2016-08-08] MEDS ORDERED: Furosemide IV* 10 MG/ML 2 ML VIAL (20 MG) IV STA (08:19)
[2016-08-08] MEDS: Tamsulosin CAP* 0.4 MG PO SCH (08:50)
[2016-08-08] MEDS: Gabapentin CAP(*) 300 MG PO SCH ×4 (08:50→22:23)
[2016-08-08] MEDS: Tiotropium CAP.INH* CAP.INH/18 MCG INH SCH (08:58)
[2016-08-08] MEDS: Albuterol/Ipratropium NEB.SOL* Albuterol 2.5 MG/Ipratropium 0.5 MG 3 ML INH PRN ×2 (09:05→14:27)
--- NOTE | 2016-08-08 09:20 | PN ---
Progress Note - Progress Note Note: Anesthesia epidural follow up. The pt looks worse today, is having more SOB than usual. Lungs are junkier than their usual. Thanks to Dr Nation for his assistance. CXR is pending. Pain remains well controlled. Neuro is OK. Site clear. s/p exp lap, d/c epidural either today or Thursday, I will discuss with Dr Plunkett his preference.
--- NOTE | 2016-08-08 09:59 | RAD ---
INDICATION: Cough, shortness of breath. Chronic obstructive pulmonary disease. COMPARISON: No relevant prior exams available on the [facility] for comparison. TECHNIQUE: Upright AP chest 0926 hours REPORT: Elevated lung volumes and both diffuse mild prominence of the interstitial markings and patchy rarefaction of the mid to upper lung zone interstitial markings. Alveolar consolidation in the RIGHT mid to lower lung zone. Small RIGHT pleural effusion. Negative for cardiomegaly. Unremarkable central pulmonary vasculature and mediastinal contours. IMPRESSION: Consolidation in the RIGHT mid to lower lung zone is most consistent with pneumonia. Stigmata of chronic obstructive pulmonary disease and emphysema.
[2016-08-08] MEDS ORDERED: Levofloxacin 500 MG IVPREMIX(* 500 MG/100 ML BAG IVPB ONE (12:00)
--- NOTE | 2016-08-08 13:10 | PN ---
Progress Note - Progress Note SOAP: Subjective: Pt seen and examined. Chart reviewed. New Dx pneumonia, and stated on Levofloxacin. Pt had a BM and is passing flatus and overall feels better. He is SOB. OOB Cardoza remains. Epidural out. Objective: Temp Pulse Resp BP SpO2 FiO2 101.0 F 116 12 95/47 92 08/08/16 07:55 08/08/16 11:24 08/08/16 11:24 08/08/16 11:24 08/08/16 11:24 UO ok abdo: soft/distended/less tender Labs noted Assessment: POD 3 ex lap, adhesiolysis, now with fever , Pneumonia Urinary retention Plan: UA U cx antibiotics advance diet slowly. SACMA to cover me until 08/11
[2016-08-08] MEDS ORDERED: MAGNESIUM SULFATE 1 GM IV ONE ×2 (13:11→13:12)
[2016-08-08] MEDS ORDERED: Magnesium Sulfate 2 GM IV IVPB ONE (14:00)
[2016-08-08 15:12] LABS: Urine Bacteria Absent (Absent); Urine Bilirubin Negative (Negative); Urine Glucose Negative (Negative); Urine Nitrite Negative (Negative)
[2016-08-08] MEDS ORDERED: Metoprolol Tartrate IV* 1 MG/ML 5 ML VIAL IV ONE (16:00)
[2016-08-08] MEDS ORDERED: Metoprolol Tartrate TAB* 25 MG PO ONE (18:00)
[2016-08-08] MEDS: Pantoprazole IV* 40 MG IV SCH (20:05)
[2016-08-09] MEDS: Ondansetron INJ* 2 MG/ML VIAL IV SCH ×6 (00:51→20:12)
[2016-08-09] MEDS: Albuterol/Ipratropium NEB.SOL* Albuterol 2.5 MG/Ipratropium 0.5 MG 3 ML INH PRN ×3 (01:00→18:03)
[2016-08-09] MEDS: Heparin VIAL(*) 5000 UNITS/ML VIAL (FIVE THOUSAND) SUBCUT SCH ×3 (06:32→21:20)
--- NOTE | 2016-08-09 07:57 | PN ---
Progress Note - Progress Note Note: Surgery Mr. Valdovinos c/o some nausea that comes in waves and passes. He denies pain at incision. He had a BM yesterday but still does not feel hungry. Vital Signs 08/08/16 08/08/16 08/08/16 08:50 10:50 11:24 Temperature Pulse Rate 116 Respiratory 32 28 12 Rate Blood Pressure 95/47 (mmHg) O2 Sat by Pulse 92 Oximetry 08/08/16 08/08/16 08/08/16 14:18 14:27 15:25 Temperature Pulse Rate 88 116 Respiratory 26 18 24 Rate Blood Pressure 102/49 (mmHg) O2 Sat by Pulse 98 97 Oximetry 08/08/16 08/08/16 08/08/16 15:30 16:00 16:17 Temperature 100.5 F Pulse Rate Respiratory 16 Rate Blood Pressure (mmHg) O2 Sat by Pulse 97 Oximetry 08/08/16 08/08/16 08/08/16 18:16 19:18 19:30 Temperature 99.7 F Pulse Rate 101 55 100 Respiratory 22 Rate Blood Pressure 96/54 96/53 (mmHg) O2 Sat by Pulse 99 99 Oximetry 08/08/16 08/08/16 08/08/16 19:33 21:17 21:25 Temperature Pulse Rate 101 Respiratory 22 18 Rate Blood Pressure 115/62 (mmHg) O2 Sat by Pulse Oximetry 08/08/16 08/09/16 08/09/16 22:23 00:13 00:15 Temperature 100.0 F Pulse Rate 101 109 Respiratory 20 20 Rate Blood Pressure 111/67 (mmHg) O2 Sat by Pulse 99 Oximetry 08/09/16 08/09/16 08/09/16 00:23 01:12 03:28 Temperature 100.2 F Pulse Rate 103 110 Respiratory 20 18 18 Rate Blood Pressure 117/63 (mmHg) O2 Sat by Pulse 100 97 Oximetry 08/09/16 08/09/16 03:31 07:34 Temperature 97.6 F Pulse Rate 115 114 Respiratory 11 Rate Blood Pressure 126/68 (mmHg) O2 Sat by Pulse 100 Oximetry Lungs: coarse BS bilaterally, R>L Heart: reg. Abd: diminished BS, distended, non-tender Incision: clean and dry. Intake & Output 08/08/16 08/09/16 08/09/16 22:59 06:59 14:59 Intake Total 635 60 Output Total 75 150 Balance 560 -90 Intake: IV Fluids 15 NS (0.9%) 20 meq KCL 15 IVPB 60 NS (0.9%) 20 meq KCL 60 Oral 560 60 Output: Urine 150 Cardoza 75 Laboratory Results - last 24 hr 08/08/16 14:39 Urine Color Yellow Urine Appearance Cloudy Urine pH 5.0 Ur Specific [place] 1.015 Urine Protein 1+(30 mg/dl) H Urine Ketones Trace H Urine Blood 2+ H Urine Nitrate Negative Urine Bilirubin Negative Urine Urobilinogen Negative Ur Leukocyte Esterase Negative Urine WBC (Auto) Absent Urine RBC (Auto) 3+(>10/hpf) H Urine Bacteria Absent Hyaline Casts Present H Urine Glucose Negative A/P: POD#3 s/p ex lap OLIVE, slow to progress. Had low grade fever with associated mild tachycardia. Dr. Nation managing abx, electrolytes, and fluid. Encourage activity, C&DB. Await return of more GI function before advancing.
[2016-08-09 08:11] LABS: Hematocrit 36 % (42-52); Hemoglobin 11.9 g/dl (14.0-18.0); Mean Corpuscular HGB Conc 33 g/dl (31-36); Mean Corpuscular Hemoglobin 30 pg (27-31); Mean Corpuscular Volume 91 fL (80-94); Mean Platelet Volume 8 um3 (7.4-10.4); Red Blood Count 3.97 10^6/ul (4.0-5.4); Red Cell Distribution Width 15 % (10.5-15); White Blood Count 9.9 10^3/ul (3.5-10.8)
[2016-08-09 08:21] LABS: BUN/Creatinine Ratio 28.8 (8-20); Calcium 7.9 mg/dL (8.6-10.3); EGFR African American 199.8 (>60); EGFR Non-African American 155.4 (>60); Phosphorus 2.3 mg/dL (2.5-5.0); Potassium 3.7 mmol/L (3.5-5.0)
[2016-08-09] MEDS: Tiotropium CAP.INH* CAP.INH/18 MCG INH SCH ×2 (09:37→12:19)
[2016-08-09] MEDS: Gabapentin CAP(*) 300 MG PO SCH ×3 (11:37→21:20)
[2016-08-09] MEDS: Metoprolol Succinate XL TAB* 25 MG PO SCH (12:19)
[2016-08-09] MEDS: Tamsulosin CAP* 0.4 MG PO SCH (12:23)
--- NOTE | 2016-08-09 12:26 | PN ---
Subjective Date of Service: 08/08/16 Interval History: . Interviewed and examined patient at bedside; Discussed case with Dr. Cruz ; Reviewed previous notes and radiology results; saw patient on surgical floor shortness of breath noted with upper airway congestion. CXR --> pNA (ABX started - d/w patient) Lasix given for mild fluid overload and IVF stopped. d/w Dr. Plunkett (surgery) Family History: Unchanged from Admission Social History: Unchanged from Admission Past Medical History: Unchanged from Admission Objective Active Medications: . Albuterol (Ventolin 2.5 Mg/3 Ml Neb.Kavita*) 2.5 mg INH Q2H PRN PRN Reason: SOB/WHEEZING Last Admin: 08/07/16 22:09 Dose: 2.5 mg Albuterol/Ipratropium (Duoneb (Albuterol 2.5 Mg/Ipratropium 0.5 Mg)) 1 neb INH Q4H PRN PRN Reason: SOB/WHEEZING Last Admin: 08/09/16 09:25 Dose: 1 neb Gabapentin (Neurontin Cap(*)) 300 mg PO TID [facility] Last Admin: 08/09/16 11:37 Dose: Not Given Heparin Sodium (Porcine) (Heparin Vial(*)) 5,000 units SUBCUT Q8HR [facility] Last Admin: 08/09/16 06:32 Dose: 5,000 units Potassium Phosphate 15 mmole/ (Sodium Chloride) 255 mls @ 42 mls/hr IVPB ONCE ONE Stop: 08/09/16 18:27 Ketorolac Tromethamine (Toradol Inj*) 15 mg IV PUSH Q6H PRN PRN Reason: PAIN Stop: 08/11/16 23:59 Metoprolol Succinate (Toprol Xl Tab*) 25 mg PO DAILY [facility] Last Admin: 08/09/16 12:19 Dose: 25 mg Morphine Sulfate (Morphine Inj (Syringe)*) 2 mg IV Q30M PRN PRN Reason: PAIN - MODERATE TO SEVERE Last Admin: 08/08/16 21:25 Dose: 2 mg Ondansetron HCl (Zofran Inj*) 4 mg IV Q4H [facility] Last Admin: 08/09/16 11:38 Dose: 4 mg Pantoprazole Sodium (Protonix Iv*) 40 mg IV 2000 [facility] Last Admin: 08/08/16 20:05 Dose: 40 mg Phenol/Menthol (Chloroseptic Throat [place]*) 1 spray MT Q4H PRN PRN Reason: SORE THROAT Last Admin: 08/04/16 23:10 Dose: 1 spray Potassium Chloride (Klor-Con Liquid*) 40 meq PO ONCE ONE Stop: 08/09/16 12:25 Tamsulosin HCl (Flomax Cap*) 0.4 mg PO DAILY [facility] Last Admin: 08/09/16 12:23 Dose: 0.4 mg Tiotropium [place] (Spiriva Cap.Inh*) 1 cap INH 0900 [facility] Last Admin: 08/09/16 12:19 Dose: 1 inh . Vital Signs 08/08/16 08/08/16 08/08/16 14:18 14:27 15:25 Temperature Pulse Rate 88 116 Respiratory 26 18 24 Rate Blood Pressure 102/49 (mmHg) O2 Sat by Pulse 98 97 Oximetry 08/08/16 08/08/16 08/08/16 15:30 16:00 16:17 Temperature 100.5 F Pulse Rate Respiratory 16 Rate Blood Pressure (mmHg) O2 Sat by Pulse 97 Oximetry Oxygen Devices in Use Now: None Appearance: elderly, frail, SOB Ears/Nose/Mouth/Throat: Mucous Membranes Moist Neck: NL Appearance and Movements; NL JVP Respiratory: - - rhonchorous breath sounds and upper airway congestion Cardiovascular: RRR Abdominal: - - midline incision - CDI - appropriately tender Lymphatic: No Cervical Adenopathy Extremities: No Edema Skin: No Rash or Ulcers Neurological: Alert and Oriented x 3 Lines/Tubes/Other Access: Clean, Dry and Intact Peripheral IV, Clean, Dry and Intact Other Access - epidural Nutrition: Taking PO's - clears Result Diagrams: 08/09/16 07:55 08/09/16 07:55 Additional Lab and Data: . Microbiology and Other Data: Microbiology 08/05/16 16:20 Nasal Screen MRSA (PCR)(MARIS) - Final Nasal Mrsa Negative Assess/Plan/Problems-Billing . Assessment: 76 yo man s/p laparotomy and lysis of adhesions. Doing well surgically, though developed pneumonia and mild fluid overload. Current Medications: - Albuterol (Ventolin 2.5 Mg/3 Ml Neb.Kavita) 2.5 mg INH Q2H PRN SOB/WHEEZING - Albuterol/Ipratropium (Duoneb (Albuterol 2.5 Mg/Ipratropium 0.5 Mg)) 1 neb INH Q4H PRN SOB/WHEEZING - Gabapentin (Neurontin Cap) 300 mg PO TID - SQH 5,000 units Q8HR RANCHO - Potassium Phosphate 15 mmole x 2nd dose - Ketorolac Tromethamine (Toradol Inj) 15 mg IV PUSH Q6H PRN PAIN - Metoprolol Succinate (Toprol Xl Tab) 25 mg PO DAILY - Morphine Sulfate (Morphine Inj (Syringe)) 2 mg IV Q30M PRN PAIN - MODERATE TO SEVERE - Ondansetron HCl (Zofran Inj) 4 mg IV Q4H RANCHO - Pantoprazole Sodium (Protonix Iv) 40 mg IV 2000 RANCHO - Phenol/Menthol (Chloroseptic Throat [place]) 1 spray MT Q4H PRN SORE THROAT - Potassium Chloride (Klor-Con Liquid) 40 meq PO ONCE - Tamsulosin HCl (Flomax Cap) 0.4 mg PO DAILY - Tiotropium [place] (Spiriva Cap.Inh) 1 cap INH 0900 RANCHO . - Patient Problems (1) Pneumonia Current Visit: Yes Status: Acute Priority: High Code(s): J18.9 - PNEUMONIA , UNSPECIFIED ORGANISM Comment: - Explains majority of patient's upper respiratory congestion, shortness of breath, tachypnea, etc. - CXR 08/08/16 --> infiltrate - Started levofloxacin 08/08/16 --> dose Q24 hours at 500 mg daily - Follow CXR and WBC and fever curve and other clinical parameters. - incentive spirometry - encourage ambulation (2) Severe protein-calorie malnutrition Current Visit: Yes Status: Acute Priority: High Code(s): E43 - UNSPECIFIED SEVERE PROTEIN-CALORIE MALNUTRITION Comment: - hypophosphatemia / hypomagnesemia noted - BMI < 20 - check pre-albumin - obvious wasting - consider TPN (3) SBO (small bowel obstruction) Current Visit: Yes Status: Acute Priority: High Code(s): K56.69 - OTHER INTESTINAL OBSTRUCTION Comment: s/p laparotomy and surgical correction without surgical complication (4) Fluid overload Current Visit: Yes Status: Acute Priority: High Code(s): E87.70 - FLUID OVERLOAD, UNSPECIFIED Comment: - In post op setting, contributing to shortness of breath - lasix x 1 on 08/08 - follow lytes and BUN/CR. - watch oral intake and ability to meet fluid needs - on 08/08, evidence of peripheral fluid overload and interstitial pulmonary edema. 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 (6) COPD (chronic obstructive pulmonary disease) Current Visit: No Status: Chronic Priority: High Code(s): J44.9 - CHRONIC OBSTRUCTIVE PULMONARY DISEASE, UNSPECIFIED Comment: - Good SO2 with supplemental O2. - Continue bronchodilators. - limited pulmonary reserve noted (7) Malignant melanoma Current Visit: Yes Status: Acute Code(s): C43.9 - MALIGNANT MELANOMA OF SKIN , UNSPECIFIED Comment: With lung met, s/p NESTOR lobectomy. (8) S/P partial lobectomy of lung Current Visit: Yes Status: Acute Priority: High Code(s): Z90.2 - ACQUIRED ABSENCE OF LUNG [PART OF] Comment: - along with COPD, limited pulmonary reserve at baseline
--- NOTE | 2016-08-09 12:46 | PN ---
Subjective Date of Service: 08/09/16 Interval History: . saw patient this AM and discussed case with Dr. Serrano (covering surgery) patient without new c/o other than ongoing weakness and cough, though this is better than yesteday we discussed him being on an antibiotic and needing to mobilize, understanding that is challenging from a GBS and post-surgical standpoint pain is controlled advancing diet as per surgery some nausea reported; relieved by zofran. following labs and repleting lytes ; some element of malnutrition - will check pre-albumin. . Family History: Unchanged from Admission Social History: Unchanged from Admission Past Medical History: Unchanged from Admission Objective Active Medications: . Albuterol (Ventolin 2.5 Mg/3 Ml Neb.Kavita*) 2.5 mg INH Q2H PRN PRN Reason: SOB/WHEEZING Last Admin: 08/07/16 22:09 Dose: 2.5 mg Albuterol/Ipratropium (Duoneb (Albuterol 2.5 Mg/Ipratropium 0.5 Mg)) 1 neb INH Q4H PRN PRN Reason: SOB/WHEEZING Last Admin: 08/09/16 09:25 Dose: 1 neb Gabapentin (Neurontin Cap(*)) 300 mg PO TID [facility] Last Admin: 08/09/16 11:37 Dose: Not Given Heparin Sodium (Porcine) (Heparin Vial(*)) 5,000 units SUBCUT Q8HR [facility] Last Admin: 08/09/16 06:32 Dose: 5,000 units Potassium Phosphate 15 mmole/ (Sodium Chloride) 255 mls @ 42.5 mls/hr IVPB ONCE ONE Stop: 08/09/16 18:59 Levofloxacin/Dextrose (Levaquin 500 Mg Ivpremix(*)) 500 mg in 100 mls @ 100 mls /hr IVPB Q24H [facility] Ketorolac Tromethamine (Toradol Inj*) 15 mg IV PUSH Q6H PRN PRN Reason: PAIN Stop: 08/11/16 23:59 Metoprolol Succinate (Toprol Xl Tab*) 25 mg PO DAILY [facility] Last Admin: 08/09/16 12:19 Dose: 25 mg Morphine Sulfate (Morphine Inj (Syringe)*) 2 mg IV Q30M PRN PRN Reason: PAIN - MODERATE TO SEVERE Last Admin: 08/08/16 21:25 Dose: 2 mg Ondansetron HCl (Zofran Inj*) 4 mg IV Q4H [facility] Last Admin: 08/09/16 11:38 Dose: 4 mg Pantoprazole Sodium (Protonix Iv*) 40 mg IV 1999 [facility] Last Admin: 08/08/16 20:05 Dose: 40 mg Phenol/Menthol (Chloroseptic Throat [place]*) 1 spray MT Q4H PRN PRN Reason: SORE THROAT Last Admin: 08/04/16 23:10 Dose: 1 spray Tamsulosin HCl (Flomax Cap*) 0.4 mg PO DAILY [facility] Last Admin: 08/09/16 12:23 Dose: 0.4 mg Tiotropium [place] (Spiriva Cap.Inh*) 1 cap INH 0900 [facility] Last Admin: 08/09/16 12:19 Dose: 1 inh . Vital Signs 08/08/16 08/08/16 08/08/16 14:18 14:27 15:25 Temperature Pulse Rate 88 116 Respiratory 26 18 24 Rate Blood Pressure 102/49 (mmHg) O2 Sat by Pulse 98 97 Oximetry 08/08/16 08/08/16 08/08/16 15:30 16:00 16:17 Temperature 100.5 F Pulse Rate Respiratory 16 Rate Blood Pressure (mmHg) O2 Sat by Pulse 97 Oximetry Oxygen Devices in Use Now: None Appearance: NAd; still weak and frail appearing Eyes: No Scleral Icterus Ears/Nose/Mouth/Throat: NL Teeth, Lips, Gums Respiratory: Symmetrical Chest Expansion and Respiratory Effort Cardiovascular: NL Sounds; No Murmurs; No JVD Abdominal: - - post-op - CDI incision Lymphatic: No Cervical Adenopathy Extremities: No Edema Skin: No Rash or Ulcers Neurological: Alert and Oriented x 3 Lines/Tubes/Other Access: Clean, Dry and Intact Peripheral IV Nutrition: Taking PO's Result Diagrams: 08/09/16 07:55 08/09/16 07:55 Additional Lab and Data: . Microbiology and Other Data: Microbiology 08/05/16 16:20 Nasal Screen MRSA (PCR)(MARIS) - Final Nasal Mrsa Negative Assess/Plan/Problems-Billing . Assessment: 76 yo man s/p laparotomy and lysis of adhesions. Doing well surgically, though developed pneumonia and mild fluid overload. Current Medications: - Albuterol (Ventolin 2.5 Mg/3 Ml Neb.Kavita) 2.5 mg INH Q2H PRN SOB/WHEEZING - Albuterol/Ipratropium (Duoneb (Albuterol 2.5 Mg/Ipratropium 0.5 Mg)) 1 neb INH Q4H PRN SOB/WHEEZING - Gabapentin (Neurontin Cap) 300 mg PO TID - SQH 5,000 units Q8HR [facility] - Potassium Phosphate 15 mmole x 2nd dose - Ketorolac Tromethamine (Toradol Inj) 15 mg IV PUSH Q6H PRN PAIN - Metoprolol Succinate (Toprol Xl Tab) 25 mg PO DAILY - Morphine Sulfate (Morphine Inj (Syringe)) 2 mg IV Q30M PRN PAIN - MODERATE TO SEVERE - Ondansetron HCl (Zofran Inj) 4 mg IV Q4H [facility] - Pantoprazole Sodium (Protonix Iv) 40 mg IV 2000 [facility] - Phenol/Menthol (Chloroseptic Throat [place]) 1 spray MT Q4H PRN SORE THROAT - Potassium Chloride (Klor-Con Liquid) 40 meq PO ONCE - Tamsulosin HCl (Flomax Cap) 0.4 mg PO DAILY - Tiotropium [place] (Spiriva Cap.Inh) 1 cap INH 0900 [facility] . - Patient Problems (1) Pneumonia Current Visit: Yes Status: Acute Priority: High Code(s): J18.9 - PNEUMONIA , UNSPECIFIED ORGANISM Comment: - Explains majority of patient's upper respiratory congestion, shortness of breath, tachypnea, etc. - CXR 08/08/16 --> infiltrate - Started levofloxacin 08/08/16 --> dose Q24 hours at 500 mg daily - Follow CXR and WBC and fever curve and other clinical parameters. - incentive spirometry - encourage ambulation (2) Severe protein-calorie malnutrition Current Visit: Yes Status: Acute Priority: High Code(s): E43 - UNSPECIFIED SEVERE PROTEIN-CALORIE MALNUTRITION Comment: - hypophosphatemia / hypomagnesemia noted - BMI < 20 - check pre-albumin - obvious wasting - consider TPN (3) SBO (small bowel obstruction) Current Visit: Yes Status: Acute Priority: High Code(s): K56.69 - OTHER INTESTINAL OBSTRUCTION Comment: s/p laparotomy and surgical correction without surgical complication (4) Fluid overload Current Visit: Yes Status: Acute Priority: High Code(s): E87.70 - FLUID OVERLOAD, UNSPECIFIED Comment: - In post op setting, contributing to shortness of breath - lasix x 1 on 08/08 - follow lytes and BUN/CR. - watch oral intake and ability to meet fluid needs - on 08/08, evidence of peripheral fluid overload and interstitial pulmonary edema. 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 (6) COPD (chronic obstructive pulmonary disease) Current Visit: No Status: Chronic Priority: High Code(s): J44.9 - CHRONIC OBSTRUCTIVE PULMONARY DISEASE, UNSPECIFIED Comment: - Good SO2 with supplemental O2. - Continue bronchodilators. - limited pulmonary reserve noted (7) Malignant melanoma Current Visit: Yes Status: Acute Code(s): C43.9 - MALIGNANT MELANOMA OF SKIN , UNSPECIFIED Comment: With lung met, s/p NESTOR lobectomy. (8) S/P partial lobectomy of lung Current Visit: Yes Status: Acute Priority: High Code(s): Z90.2 - ACQUIRED ABSENCE OF LUNG [PART OF] Comment: - along with COPD, limited pulmonary reserve at baseline
[2016-08-09] MEDS ORDERED: Potassium Phosphate IV* 15 MMOLE in NS 0.9% 250 ML* 250 ML IVPB ONE (13:00)
[2016-08-09] MEDS: Levofloxacin 500 MG IVPREMIX(* 500 MG/100 ML BAG IVPB SCH (13:16)
[2016-08-09] MEDS: Morphine INJ* 2 MG/ML 1 ML SYRINGE IV PRN (14:30)
[2016-08-09] MEDS: Potassium Chloride LIQUID* 20 MEQ PACKET PO ONE ×2 (14:33→15:04)
[2016-08-09] MEDS: Sertraline* 50 MG TAB PO SCH (14:57)
[2016-08-09] MEDS ORDERED: D5W 1/2 NS KCl 20 Meq 1000 ML* 1,000 ML IV SCH (15:00)
[2016-08-09] MEDS: Methylphenidate TAB* 5 MG PO SCH (15:37)
[2016-08-09 16:15] LABS: Prealbumin 7 mg/dL (18-38); Total Iron Binding Capacity 164 mcg/dL (250-450); Transferrin 117 mg/dL (203-362)
[2016-08-09 19:08] LABS: Iron < 15 ug/dL (50-212)
[2016-08-09] MEDS: Pantoprazole IV* 40 MG IV SCH (21:19)
[2016-08-09] MEDS: Albuterol 2.5 MG/3 ML NEB.SOL* (0.083%) INH PRN (22:43)
[2016-08-10] MEDS: Ondansetron INJ* 2 MG/ML VIAL IV SCH ×6 (00:11→20:55)
[2016-08-10 05:31] LABS: Hematocrit 34 % (42-52); Hemoglobin 11.1 g/dl (14.0-18.0); Mean Corpuscular HGB Conc 33 g/dl (31-36); Mean Corpuscular Hemoglobin 30 pg (27-31); Mean Corpuscular Volume 92 fL (80-94); Mean Platelet Volume 8 um3 (7.4-10.4); Red Blood Count 3.72 10^6/ul (4.0-5.4); Red Cell Distribution Width 15 % (10.5-15); White Blood Count 9.2 10^3/ul (3.5-10.8)
[2016-08-10 06:00] LABS: BUN/Creatinine Ratio 27.1 (8-20); Calcium 7.8 mg/dL (8.6-10.3); EGFR African American 219.1 (>60); EGFR Non-African American 170.4 (>60); Magnesium 1.7 mg/dL (1.9-2.7); Phosphorus 1.8 mg/dL (2.5-5.0)
[2016-08-10] MEDS: Heparin VIAL(*) 5000 UNITS/ML VIAL (FIVE THOUSAND) SUBCUT SCH ×3 (06:00→22:38)
[2016-08-10] MEDS ORDERED: Potassium Phosphate IV* 15 MMOLE in NS 0.9% 250 ML* 250 ML IVPB ONE (09:00)
[2016-08-10] MEDS ORDERED: Magnesium Sulf 4 GM/100 ML IV* 4,000 MG/100 ML BAG IVPB ONE (09:00)
--- NOTE | 2016-08-10 09:13 | PN ---
Progress Note - Progress Note Note: Surgery Mr. Valdovinos reports he had a rough night with nausea last night, but he feels much better today. Labs checked yesterday reflect severe malnutrition. Vital Signs 08/09/16 08/09/16 08/09/16 11:56 14:30 14:32 Temperature 97.9 F Pulse Rate 101 Respiratory 12 20 16 Rate Blood Pressure 120/57 (mmHg) O2 Sat by Pulse 99 Oximetry 08/09/16 08/09/16 08/09/16 15:30 16:00 16:28 Temperature 99.3 F Pulse Rate 94 Respiratory 20 20 Rate Blood Pressure 127/65 (mmHg) O2 Sat by Pulse 99 99 Oximetry 08/09/16 08/09/16 08/09/16 18:05 19:05 19:26 Temperature 99.7 F Pulse Rate 99 98 Respiratory 17 20 20 Rate Blood Pressure 122/72 (mmHg) O2 Sat by Pulse 99 99 Oximetry 08/09/16 08/09/16 08/09/16 21:20 22:44 23:20 Temperature Pulse Rate 85 Respiratory 20 18 18 Rate Blood Pressure (mmHg) O2 Sat by Pulse 99 Oximetry 08/10/16 08/10/16 08/10/16 00:04 03:53 07:29 Temperature 99.3 F 99.3 F 97.6 F Pulse Rate 98 91 95 Respiratory 18 18 18 Rate Blood Pressure 117/64 103/64 107/64 (mmHg) O2 Sat by Pulse 99 99 99 Oximetry Abd: good BS, distended, but less than yesterday, non-tender Incision: Clean and dry. POD#4 Some progress; no further fever or tachycardia. I agree that he may need TPN, but since he feels better today, and is willing to try supplements with meals, will hold off starting TPN for now.
[2016-08-10] MEDS: Methylphenidate TAB* 5 MG PO SCH (09:19)
[2016-08-10] MEDS: Gabapentin CAP(*) 300 MG PO SCH ×3 (09:19→20:55)
[2016-08-10] MEDS: Tamsulosin CAP* 0.4 MG PO SCH (09:20)
[2016-08-10] MEDS: Metoprolol Succinate XL TAB* 25 MG PO SCH (09:20)
[2016-08-10] MEDS: Sertraline* 50 MG TAB PO SCH (09:20)
[2016-08-10] MEDS: Tiotropium CAP.INH* CAP.INH/18 MCG INH SCH (09:22)
[2016-08-10] MEDS: Albuterol/Ipratropium NEB.SOL* Albuterol 2.5 MG/Ipratropium 0.5 MG 3 ML INH PRN ×2 (11:05→21:12)
[2016-08-10] MEDS: Levofloxacin 500 MG IVPREMIX(* 500 MG/100 ML BAG IVPB SCH (13:51)
--- NOTE | 2016-08-10 15:39 | PN ---
Subjective Date of Service: 08/10/16 Interval History: . feels a bit better. appetite still poor 2/2 nausea, but is anticipating better progress today. discussed the idea of TPN with patient--plan to re-evaluate after today and make a plan, in conjunction with surgery team. denies SOB/CP; doing well with antibiotics regimen and overall ease of breathing. case discussed with Dr. Serrano Family History: Unchanged from Admission Social History: Unchanged from Admission Past Medical History: Unchanged from Admission Objective Active Medications: . Albuterol (Ventolin 2.5 Mg/3 Ml Neb.Kavita*) 2.5 mg INH Q2H PRN PRN Reason: SOB/WHEEZING Last Admin: 08/09/16 22:43 Dose: 2.5 mg Albuterol/Ipratropium (Duoneb (Albuterol 2.5 Mg/Ipratropium 0.5 Mg)) 1 neb INH Q4H PRN PRN Reason: SOB/WHEEZING Last Admin: 08/10/16 11:05 Dose: 1 neb Gabapentin (Neurontin Cap(*)) 300 mg PO TID [facility] Last Admin: 08/10/16 14:03 Dose: 300 mg Heparin Sodium (Porcine) (Heparin Vial(*)) 5,000 units SUBCUT Q8HR [facility] Last Admin: 08/10/16 14:05 Dose: 5,000 units Levofloxacin/Dextrose (Levaquin 500 Mg Ivpremix(*)) 500 mg in 100 mls @ 100 mls /hr IVPB Q24H [facility] Last Admin: 08/10/16 13:51 Dose: 100 mls/hr Ketorolac Tromethamine (Toradol Inj*) 15 mg IV PUSH Q6H PRN PRN Reason: PAIN Stop: 08/11/16 23:59 Methylphenidate HCl (Ritalin Tab*) 2.5 mg PO DAILY [facility] Last Admin: 08/10/16 09:19 Dose: 2.5 mg Metoprolol Succinate (Toprol Xl Tab*) 25 mg PO DAILY [facility] Last Admin: 08/10/16 09:20 Dose: 25 mg Morphine Sulfate (Morphine Inj (Syringe)*) 2 mg IV Q30M PRN PRN Reason: PAIN - MODERATE TO SEVERE Last Admin: 08/09/16 14:30 Dose: 2 mg Ondansetron HCl (Zofran Inj*) 4 mg IV Q4H [facility] Last Admin: 08/10/16 12:53 Dose: 4 mg Pantoprazole Sodium (Protonix Iv*) 40 mg IV 1999 [facility] Last Admin: 08/09/16 21:19 Dose: 40 mg Phenol/Menthol (Chloroseptic Throat [place]*) 1 spray MT Q4H PRN PRN Reason: SORE THROAT Last Admin: 08/04/16 23:10 Dose: 1 spray Sertraline HCl (Zoloft*) 50 mg PO DAILY [facility] Last Admin: 08/10/16 09:20 Dose: 50 mg Tamsulosin HCl (Flomax Cap*) 0.4 mg PO DAILY [facility] Last Admin: 08/10/16 09:20 Dose: 0.4 mg Tiotropium [place] (Spiriva Cap.Inh*) 1 cap INH 09 [facility] Last Admin: 08/10/16 09:22 Dose: 1 inh . Vital Signs 08/09/16 08/09/16 08/09/16 16:00 16:28 18:05 Temperature 99.3 F Pulse Rate 94 99 Respiratory 20 17 Rate Blood Pressure 127/65 (mmHg) O2 Sat by Pulse 99 99 99 Oximetry 08/09/16 08/09/16 08/09/16 19:05 19:26 21:20 Temperature 99.7 F Pulse Rate 98 Respiratory 20 20 20 Rate Blood Pressure 122/72 (mmHg) O2 Sat by Pulse 99 Oximetry Oxygen Devices in Use Now: None Appearance: NAD; but frail appearing. Eyes: No Scleral Icterus Ears/Nose/Mouth/Throat: Clear Oropharnyx Neck: Trachea Midline Respiratory: Symmetrical Chest Expansion and Respiratory Effort, - - distant BS , diffuse rhonchi--no worse than previously. Cardiovascular: No Edema Abdominal: - - post-op ; appropriately tender ; incision CDI. Lymphatic: No Cervical Adenopathy Extremities: No Edema Skin: No Rash or Ulcers Neurological: Alert and Oriented x 3 Lines/Tubes/Other Access: Clean, Dry and Intact Peripheral IV Nutrition: Taking PO's Result Diagrams: 08/10/16 05:00 08/10/16 05:00 Additional Lab and Data: . Microbiology and Other Data: Microbiology 08/05/16 16:20 Nasal Screen MRSA (PCR)(MARIS) - Final Nasal Mrsa Negative Assess/Plan/Problems-Billing . Assessment: 76 yo man s/p laparotomy and lysis of adhesions. Doing well surgically, though developed pneumonia and mild fluid overload as well as severe protein calorie malnutrition and weakness. Current Medications: - Albuterol (Ventolin 2.5 Mg/3 Ml Neb.Kavita) 2.5 mg INH Q2H PRN SOB/WHEEZING - Albuterol/Ipratropium (Duoneb (Albuterol 2.5 Mg/Ipratropium 0.5 Mg)) 1 neb INH Q4H PRN SOB/WHEEZING - Gabapentin (Neurontin Cap) 300 mg PO TID - SQH 5,000 units Q8HR [facility] - Potassium Phosphate 15 mmole x 2nd dose - Ketorolac Tromethamine (Toradol Inj) 15 mg IV PUSH Q6H PRN PAIN - Metoprolol Succinate (Toprol Xl Tab) 25 mg PO DAILY - Morphine Sulfate (Morphine Inj (Syringe)) 2 mg IV Q30M PRN PAIN - MODERATE TO SEVERE - Ondansetron HCl (Zofran Inj) 4 mg IV Q4H [facility] - Pantoprazole Sodium (Protonix Iv) 40 mg IV 2000 [facility] - Phenol/Menthol (Chloroseptic Throat [place]) 1 spray MT Q4H PRN SORE THROAT - Potassium Chloride (Klor-Con Liquid) 40 meq PO ONCE - Tamsulosin HCl (Flomax Cap) 0.4 mg PO DAILY - Tiotropium [place] (Spiriva Cap.Inh) 1 cap INH 0900 [facility] - Levofloxacin 500 mg IVPB Q24H - Methylphenidate HCl (Ritalin Tab) 2.5 mg PO DAILY - Sertraline HCl (Zoloft) 50 mg PO DAILY - Patient Problems (1) Pneumonia Current Visit: Yes Status: Acute Priority: High Code(s): J18.9 - PNEUMONIA , UNSPECIFIED ORGANISM Comment: - Improved since starting antibiotics - Started levofloxacin 08/08/16 --> dose Q24 hours at 500 mg daily; 7 day course ends 08/14/2016 - Follow CXR and WBC and fever curve and other clinical parameters. - Incentive spirometry - Encourage ambulation (2) Severe protein-calorie malnutrition Current Visit: Yes Status: Acute Priority: High Code(s): E43 - UNSPECIFIED SEVERE PROTEIN-CALORIE MALNUTRITION Comment: - hypophosphatemia / hypomagnesemia noted - BMI < 20 - pre-albumin < 10 - obvious wasting - if no improvement in oral intake, will place PICC and start TPN 08/11/16 - consider TPN (3) SBO (small bowel obstruction) Current Visit: Yes Status: Acute Priority: High Code(s): K56.69 - OTHER INTESTINAL OBSTRUCTION Comment: s/p laparotomy and surgical correction without surgical complication (4) Fluid overload Current Visit: Yes Status: Acute Priority: High Code(s): E87.70 - FLUID OVERLOAD, UNSPECIFIED Comment: - In post op setting, contributing to shortness of breath - lasix x 1 on 08/08 - follow lytes and BUN/CR. - watch oral intake and ability to meet fluid needs - on 08/08, evidence of peripheral fluid overload and interstitial pulmonary edema. 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 (6) COPD (chronic obstructive pulmonary disease) Current Visit: No Status: Chronic Priority: High Code(s): J44.9 - CHRONIC OBSTRUCTIVE PULMONARY DISEASE, UNSPECIFIED Comment: - Good SO2 with supplemental O2. - Continue bronchodilators. - limited pulmonary reserve noted (7) Malignant melanoma Current Visit: Yes Status: Acute Code(s): C43.9 - MALIGNANT MELANOMA OF SKIN , UNSPECIFIED Comment: With lung met, s/p NESTOR lobectomy. (8) S/P partial lobectomy of lung Current Visit: Yes Status: Acute Priority: High Code(s): Z90.2 - ACQUIRED ABSENCE OF LUNG [PART OF] Comment: - along with COPD, limited pulmonary reserve at baseline
[2016-08-10] MEDS: Ketorolac INJ* 15 MG/ML 1 ML VIAL IV PUSH PRN (19:06)
[2016-08-10] MEDS: Pantoprazole IV* 40 MG IV SCH (19:38)
[2016-08-11] MEDS: Ondansetron INJ* 2 MG/ML VIAL IV SCH ×6 (00:27→20:13)
[2016-08-11] MEDS: Heparin VIAL(*) 5000 UNITS/ML VIAL (FIVE THOUSAND) SUBCUT SCH ×3 (05:45→22:36)
[2016-08-11 07:08] LABS: Hematocrit 31 % (42-52); Hemoglobin 10.4 g/dl (14.0-18.0); Mean Corpuscular HGB Conc 33 g/dl (31-36); Mean Corpuscular Hemoglobin 30 pg (27-31); Mean Corpuscular Volume 91 fL (80-94); Mean Platelet Volume 8 um3 (7.4-10.4); Red Blood Count 3.44 10^6/ul (4.0-5.4); Red Cell Distribution Width 15 % (10.5-15); White Blood Count 10.1 10^3/ul (3.5-10.8)
[2016-08-11 07:25] LABS: BUN/Creatinine Ratio 31.8 (8-20); Calcium 7.7 mg/dL (8.6-10.3); EGFR African American 242.3 (>60); EGFR Non-African American 188.4 (>60); Phosphorus 2.3 mg/dL (2.5-5.0); Potassium 4.2 mmol/L (3.5-5.0)
[2016-08-11] MEDS: Sertraline* 50 MG TAB PO SCH (08:02)
[2016-08-11] MEDS: Gabapentin CAP(*) 300 MG PO SCH ×3 (08:03→20:14)
[2016-08-11] MEDS: Tamsulosin CAP* 0.4 MG PO SCH (08:03)
[2016-08-11] MEDS: Tiotropium CAP.INH* CAP.INH/18 MCG INH SCH (08:03)
--- NOTE | 2016-08-11 08:43 | PN ---
Progress Note - Progress Note SOAP: Subjective: Pt seen and examined. Feeling better today. PICC team in the room about to start procedure. I cancelled PICC despite hypoalbunemia, we will progress without TPN. Pt has had previous dvt with central access. Slept well. On ventimask. We walk about 30' today and then back to his room where o2 sat was 77%. Returned to 90s on mask. No nausea. Pos large BM yesterday. po. flatus Objective: Temp Pulse Resp BP Pulse Ox 98.2 F 95 18 112/57 98 08/11/16 07:13 08/11/16 07:13 08/11/16 08:03 08/11/16 07:13 08/11/16 08:00 lungs : course BS abdo: mild distension. nontender. normoactive BS staple line intact no calf tendernss labs noted wbs up to 10K Assessment: POD6 ex lap, adhesiolysis, pneumonia, hypoalbumenemia Plan: encourage PO advance to solids likely home later this week on O2 cont abx cbc in am
[2016-08-11] MEDS: Methylphenidate TAB* 5 MG PO SCH (09:30)
[2016-08-11] MEDS: Metoprolol Succinate XL TAB* 25 MG PO SCH (09:30)
[2016-08-11] MEDS: Levofloxacin 500 MG IVPREMIX(* 500 MG/100 ML BAG IVPB SCH (12:31)
[2016-08-11] MEDS: Albuterol/Ipratropium NEB.SOL* Albuterol 2.5 MG/Ipratropium 0.5 MG 3 ML INH PRN ×2 (12:39→20:40)
[2016-08-11] MEDS: Ketorolac INJ* 15 MG/ML 1 ML VIAL IV PUSH PRN (16:11)
[2016-08-11] MEDS ORDERED: TPN* 24 HR with Dextrose 50% Water* 500 ML, Amino Acid Infusion 10%* 850 ML, Sterile Wa... CENTR SCH ×12 (17:00)
[2016-08-11] MEDS ORDERED: Sodium Phosphate INJ* 30 MMOLE in NS 0.9% 250 ML* 250 ML IVPB ONE (17:50)
--- NOTE | 2016-08-11 19:34 | PN ---
Subjective Date of Service: 08/11/16 Interval History: . feels well still poor oral intake malnourished. no subjective complaints discussed PICC and TPN - deferred by surgical team and I am ok with further observation. calorie count requested. . Family History: Unchanged from Admission Social History: Unchanged from Admission Past Medical History: Unchanged from Admission Objective Active Medications: . Albuterol (Ventolin 2.5 Mg/3 Ml Neb.Kavita*) 2.5 mg INH Q2H PRN PRN Reason: SOB/WHEEZING Last Admin: 08/09/16 22:43 Dose: 2.5 mg Albuterol/Ipratropium (Duoneb (Albuterol 2.5 Mg/Ipratropium 0.5 Mg)) 1 neb INH Q4H PRN PRN Reason: SOB/WHEEZING Last Admin: 08/11/16 12:39 Dose: 1 neb Gabapentin (Neurontin Cap(*)) 300 mg PO TID [facility] Last Admin: 08/11/16 13:59 Dose: 300 mg Heparin Sodium (Porcine) (Heparin Vial(*)) 5,000 units SUBCUT Q8HR [facility] Last Admin: 08/11/16 13:59 Dose: 5,000 units Levofloxacin/Dextrose (Levaquin 500 Mg Ivpremix(*)) 500 mg in 100 mls @ 100 mls /hr IVPB Q24H [facility] Last Admin: 08/11/16 12:31 Dose: 100 mls/hr Sodium Phosphate 30 mmole/ (Sodium Chloride) 260 mls @ 42 mls/hr IVPB ONCE ONE Stop: 08/12/16 00:01 Last Admin: 08/11/16 19:08 Dose: 42 mls/hr Ketorolac Tromethamine (Toradol Inj*) 15 mg IV PUSH Q6H PRN PRN Reason: PAIN Stop: 08/11/16 23:59 Last Admin: 08/11/16 16:11 Dose: 15 mg Methylphenidate HCl (Ritalin Tab*) 2.5 mg PO DAILY [facility] Last Admin: 08/11/16 09:30 Dose: 2.5 mg Metoprolol Succinate (Toprol Xl Tab*) 12.5 mg PO DAILY [facility] Last Admin: 08/11/16 09:30 Dose: 12.5 mg Morphine Sulfate (Morphine Inj (Syringe)*) 2 mg IV Q30M PRN PRN Reason: PAIN - MODERATE TO SEVERE Last Admin: 08/09/16 14:30 Dose: 2 mg Ondansetron HCl (Zofran Inj*) 4 mg IV Q4H [facility] Last Admin: 08/11/16 16:11 Dose: 4 mg Pantoprazole Sodium (Protonix Iv*) 40 mg IV 1999 [facility] Last Admin: 08/10/16 19:38 Dose: 40 mg Phenol/Menthol (Chloroseptic Throat [place]*) 1 spray MT Q4H PRN PRN Reason: SORE THROAT Last Admin: 08/04/16 23:10 Dose: 1 spray Sertraline HCl (Zoloft*) 50 mg PO DAILY [facility] Last Admin: 08/11/16 08:02 Dose: 50 mg Tamsulosin HCl (Flomax Cap*) 0.4 mg PO DAILY [facility] Last Admin: 08/11/16 08:03 Dose: 0.4 mg Tiotropium [place] (Spiriva Cap.Inh*) 1 cap INH 0900 [facility] Last Admin: 08/11/16 08:03 Dose: 1 inh Vital Signs 08/10/16 08/10/16 08/10/16 19:39 20:00 21:12 Temperature 99.1 F Pulse Rate 91 88 Respiratory 18 16 17 Rate Blood Pressure 103/61 (mmHg) O2 Sat by Pulse 98 98 Oximetry 08/10/16 08/11/16 08/11/16 23:35 03:49 07:13 Temperature 98.1 F 97.4 F 98.2 F Pulse Rate 96 96 95 Respiratory 22 17 20 Rate Blood Pressure 99/47 112/55 112/57 (mmHg) O2 Sat by Pulse 97 96 98 Oximetry Oxygen Devices in Use Now: None Appearance: NAD Ears/Nose/Mouth/Throat: Clear Oropharnyx Neck: NL Appearance and Movements; NL JVP Respiratory: Symmetrical Chest Expansion and Respiratory Effort Cardiovascular: NL Sounds; No Murmurs; No JVD Abdominal: - - appropriate post-op exam Extremities: No Edema Skin: No Rash or Ulcers Neurological: Alert and Oriented x 3 Lines/Tubes/Other Access: Clean, Dry and Intact Peripheral IV Nutrition: Taking PO's Result Diagrams: 08/11/16 06:32 08/11/16 06:33 Additional Lab and Data: . Microbiology and Other Data: Microbiology 08/05/16 16:20 Nasal Screen MRSA (PCR)(MARIS) - Final Nasal Mrsa Negative Assess/Plan/Problems-Billing . Assessment: 76 yo man s/p laparotomy and lysis of adhesions. Doing well surgically, though developed pneumonia and mild fluid overload as well as severe protein calorie malnutrition and weakness. Current Medications: - Albuterol (Ventolin 2.5 Mg/3 Ml Neb.Kavita) 2.5 mg INH Q2H PRN SOB/WHEEZING - Albuterol/Ipratropium (Duoneb (Albuterol 2.5 Mg/Ipratropium 0.5 Mg)) 1 neb INH Q4H PRN SOB/WHEEZING - Gabapentin (Neurontin Cap) 300 mg PO TID - SQH 5,000 units Q8HR [facility] - Potassium Phosphate 15 mmole x 2nd dose - Ketorolac Tromethamine (Toradol Inj) 15 mg IV PUSH Q6H PRN PAIN - Metoprolol Succinate (Toprol Xl Tab) 25 mg PO DAILY - Morphine Sulfate (Morphine Inj (Syringe)) 2 mg IV Q30M PRN PAIN - MODERATE TO SEVERE - Ondansetron HCl (Zofran Inj) 4 mg IV Q4H [facility] - Pantoprazole Sodium (Protonix Iv) 40 mg IV 2000 [facility] - Phenol/Menthol (Chloroseptic Throat [place]) 1 spray MT Q4H PRN SORE THROAT - Potassium Chloride (Klor-Con Liquid) 40 meq PO ONCE - Tamsulosin HCl (Flomax Cap) 0.4 mg PO DAILY - Tiotropium [place] (Spiriva Cap.Inh) 1 cap INH 0900 [facility] - Levofloxacin 500 mg IVPB Q24H - Methylphenidate HCl (Ritalin Tab) 2.5 mg PO DAILY - Sertraline HCl (Zoloft) 50 mg PO DAILY - Patient Problems (1) Pneumonia Current Visit: Yes Status: Acute Priority: High Code(s): J18.9 - PNEUMONIA , UNSPECIFIED ORGANISM Comment: - Improved since starting antibiotics - Started levofloxacin 08/08/16 --> dose Q24 hours at 500 mg daily; 7 day course ends 08/14/2016 - Follow CXR and WBC and fever curve and other clinical parameters. - Incentive spirometry - Encourage ambulation (2) Severe protein-calorie malnutrition Current Visit: Yes Status: Acute Priority: High Code(s): E43 - UNSPECIFIED SEVERE PROTEIN-CALORIE MALNUTRITION Comment: - hypophosphatemia / hypomagnesemia noted - BMI < 20 - pre-albumin < 10 - obvious wasting - consider TPN if no improvement in calorie intake. (3) SBO (small bowel obstruction) Current Visit: Yes Status: Acute Priority: High Code(s): K56.69 - OTHER INTESTINAL OBSTRUCTION Comment: s/p laparotomy and surgical correction without surgical complication (4) Fluid overload Current Visit: Yes Status: Acute Priority: High Code(s): E87.70 - FLUID OVERLOAD, UNSPECIFIED Comment: - In post op setting, contributing to shortness of breath - lasix x 1 on 08/08 - follow lytes and BUN/CR. - watch oral intake and ability to meet fluid needs - on 08/08, evidence of peripheral fluid overload and interstitial pulmonary edema. 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 (6) COPD (chronic obstructive pulmonary disease) Current Visit: No Status: Chronic Priority: High Code(s): J44.9 - CHRONIC OBSTRUCTIVE PULMONARY DISEASE, UNSPECIFIED Comment: - Good SO2 with supplemental O2. - Continue bronchodilators. - limited pulmonary reserve noted (7) Malignant melanoma Current Visit: Yes Status: Acute Code(s): C43.9 - MALIGNANT MELANOMA OF SKIN , UNSPECIFIED Comment: With lung met, s/p NESTOR lobectomy. (8) S/P partial lobectomy of lung Current Visit: Yes Status: Acute Priority: High Code(s): Z90.2 - ACQUIRED ABSENCE OF LUNG [PART OF] Comment: - along with COPD, limited pulmonary reserve at baseline
[2016-08-11] MEDS: Pantoprazole IV* 40 MG IV SCH (20:14)
[2016-08-12] MEDS: Ondansetron INJ* 2 MG/ML VIAL IV SCH ×3 (00:01→09:10)
[2016-08-12] MEDS: Heparin VIAL(*) 5000 UNITS/ML VIAL (FIVE THOUSAND) SUBCUT SCH ×3 (05:49→22:24)
[2016-08-12 07:02] LABS: Hematocrit 32 % (42-52); Hemoglobin 10.6 g/dl (14.0-18.0); Mean Corpuscular HGB Conc 33 g/dl (31-36); Mean Corpuscular Hemoglobin 30 pg (27-31); Mean Corpuscular Volume 92 fL (80-94); Mean Platelet Volume 8 um3 (7.4-10.4); Red Blood Count 3.54 10^6/ul (4.0-5.4); Red Cell Distribution Width 15 % (10.5-15); White Blood Count 9.6 10^3/ul (3.5-10.8)
[2016-08-12] MEDS ORDERED: Ondansetron INJ* 2 MG/ML VIAL IV PRN (09:11)
[2016-08-12] MEDS ORDERED: Acetaminophen TAB* 325 MG PO PRN (09:14)
--- NOTE | 2016-08-12 09:22 | PN ---
Progress Note - Progress Note Note: Surgery Progress: S: POD #7. On Levaquin day #5/7. Feels better. Sumit diet better yesterday. Just about to try b-fast. Cont to pass flatus. No BM since Sun. No sig pain. Ambulating better. O: Vital Signs - 8 hr 08/12/16 08/12/16 03:45 07:39 Temperature 98.3 F 97.9 F Pulse Rate 100 93 Respiratory 20 20 Rate Blood Pressure 117/63 121/63 (mmHg) O2 Sat by Pulse 98 97 Oximetry Intake and Output Last 24 Hours 08/10/16 08/11/16 08/12/16 08/13/16 06:59 06:59 06:59 06:59 Intake Total 1795 1713 1515 Output Total 590 307 3346 Balance 1235 813 515 Intake: IV Fluids 1068 15 D5W 1/2 NS 20 meq KCL 1040 NS (0.9%) 28 15 IVPB 367 103 260 D5W 1/2 NS 20 meq KCL 100 NS (0.9%) 103 Potassium Phosphate 267 Sodium Phosphate 260 Oral 360 1610 1240 Output: Urine 815 291 7930 Other: # Bowel Movements 0 0 Estimated Stool Amount Medium Heart: reg (mild tachy) Lungs: course rhonchi; no rales Abd: mildly distended/tympanitic; incision looks good; BS+; soft; no sig tenderness Extr: trace edema at ankles bilat Labs: Laboratory Tests 08/12/16 06:43 WBC 9.6 Hgb 10.6 L A: s/p ex lap for OLIVE, w/ postop fluid overload and pna, improving P: discussed w/ Dr. Plunkett; will cont to adv diet as sumit; look toward poss d/c home 08/13 (on home O2?) to finish Levaquin po (pend hospitalist review).
[2016-08-12] MEDS: Tiotropium CAP.INH* CAP.INH/18 MCG INH SCH (09:55)
[2016-08-12] MEDS: Methylphenidate TAB* 5 MG PO SCH (09:55)
[2016-08-12] MEDS: Metoprolol Succinate XL TAB* 25 MG PO SCH (09:55)
[2016-08-12] MEDS: Gabapentin CAP(*) 300 MG PO SCH ×3 (09:56→19:29)
[2016-08-12] MEDS: Tamsulosin CAP* 0.4 MG PO SCH (09:56)
[2016-08-12] MEDS: Sertraline* 50 MG TAB PO SCH (09:56)
[2016-08-12] MEDS: HYDROcodone/ACETAMIN 5-325 MG* 1 TAB PO PRN (12:32)
[2016-08-12] MEDS: Levofloxacin TAB* 500 MG PO SCH (12:46)
[2016-08-12] MEDS: Albuterol/Ipratropium NEB.SOL* Albuterol 2.5 MG/Ipratropium 0.5 MG 3 ML INH PRN (15:00)
--- NOTE | 2016-08-12 17:26 | PN ---
Subjective Date of Service: 08/12/16 Interval History: Pt is feeling well. He states earlier today he sat in a hard chair for too long and became very sore requiring pain medication. Because of that he did not eat any lunch. He is interested and willing to try to eat dinner. He states he feels more like himself today. He states he had a BM earlier today. Family History: Unchanged from Admission Social History: Unchanged from Admission Past Medical History: Unchanged from Admission Objective Active Medications: Acetaminophen (Tylenol Tab*) 650 mg PO Q4H PRN PRN Reason: mild pain Hydrocodone Bitart/Acetaminophen ([place] 5-325 Tab*) 2 tab PO Q4H PRN PRN Reason: PAIN Last Admin: 08/12/16 12:32 Dose: 2 tab Albuterol (Ventolin 2.5 Mg/3 Ml Neb.Kavita*) 2.5 mg INH Q2H PRN PRN Reason: SOB/WHEEZING Last Admin: 08/09/16 22:43 Dose: 2.5 mg Albuterol/Ipratropium (Duoneb (Albuterol 2.5 Mg/Ipratropium 0.5 Mg)) 1 neb INH Q4H PRN PRN Reason: SOB/WHEEZING Last Admin: 08/12/16 15:00 Dose: 1 neb Gabapentin (Neurontin Cap(*)) 300 mg PO TID [facility] Last Admin: 08/12/16 14:12 Dose: 300 mg Heparin Sodium (Porcine) (Heparin Vial(*)) 5,000 units SUBCUT Q8HR [facility] Last Admin: 08/12/16 14:13 Dose: 5,000 units Levofloxacin (Levaquin Tab*) 500 mg PO Q24H [facility] Last Admin: 08/12/16 12:46 Dose: 500 mg Methylphenidate HCl (Ritalin Tab*) 2.5 mg PO DAILY [facility] Last Admin: 08/12/16 09:55 Dose: 2.5 mg Metoprolol Succinate (Toprol Xl Tab*) 12.5 mg PO DAILY [facility] Last Admin: 08/12/16 09:55 Dose: 12.5 mg Morphine Sulfate (Morphine Inj (Syringe)*) 2 mg IV Q30M PRN PRN Reason: PAIN - MODERATE TO SEVERE Last Admin: 08/09/16 14:30 Dose: 2 mg Ondansetron HCl (Zofran Inj*) 4 mg IV Q4H PRN PRN Reason: NAUSEA Pantoprazole Sodium (Protonix Iv*) 40 mg IV 1999 [facility] Last Admin: 08/11/16 20:14 Dose: 40 mg Phenol/Menthol (Chloroseptic Throat [place]*) 1 spray MT Q4H PRN PRN Reason: SORE THROAT Last Admin: 08/04/16 23:10 Dose: 1 spray Sertraline HCl (Zoloft*) 50 mg PO DAILY [facility] Last Admin: 08/12/16 09:56 Dose: 50 mg Tamsulosin HCl (Flomax Cap*) 0.4 mg PO DAILY [facility] Last Admin: 08/12/16 09:56 Dose: 0.4 mg Tiotropium [place] (Spiriva Cap.Inh*) 1 cap INH 09 [facility] Last Admin: 08/12/16 09:55 Dose: 1 inh Vital Signs 08/11/16 08/11/16 08/11/16 19:23 20:14 20:31 Temperature 99.1 F Pulse Rate 98 Respiratory 14 18 18 Rate Blood Pressure 112/53 (mmHg) O2 Sat by Pulse 98 Oximetry 08/11/16 08/11/16 08/11/16 20:41 22:14 22:39 Temperature Pulse Rate 89 Respiratory 14 16 18 Rate Blood Pressure (mmHg) O2 Sat by Pulse 98 Oximetry 08/11/16 08/12/16 08/12/16 23:42 00:20 03:45 Temperature 98.2 F 98.3 F Pulse Rate 102 100 Respiratory 20 20 Rate Blood Pressure 109/60 117/63 (mmHg) O2 Sat by Pulse 95 94 98 Oximetry 08/12/16 08/12/16 08/12/16 07:39 09:00 09:56 Temperature 97.9 F Pulse Rate 93 Respiratory 20 16 16 Rate Blood Pressure 121/63 (mmHg) O2 Sat by Pulse 97 Oximetry 08/12/16 08/12/16 08/12/16 11:31 12:32 14:12 Temperature 97.8 F Pulse Rate 102 Respiratory 18 20 16 Rate Blood Pressure 104/56 (mmHg) O2 Sat by Pulse 93 Oximetry 08/12/16 08/12/16 08/12/16 14:32 15:19 15:26 Temperature 98.0 F Pulse Rate 93 103 Respiratory 16 16 17 Rate Blood Pressure 113/51 (mmHg) O2 Sat by Pulse 93 93 Oximetry Oxygen Devices in Use Now: None Appearance: Elderly thin male lying in bed, NAD Eyes: No Scleral Icterus Ears/Nose/Mouth/Throat: Mucous Membranes Moist Respiratory: Symmetrical Chest Expansion and Respiratory Effort, Clear to Auscultation - diminished breath sounds in all lung lloyd Cardiovascular: NL Sounds; No Murmurs; No JVD, RRR, No Edema Abdominal: - - BS+ soft, NT, mildly distended, midline incision with rosey in place, no surrounding erythema Extremities: No Clubbing, Cyanosis Skin: No Rash or Ulcers, No Nodules or Sclerosis Neurological: Alert and Oriented x 3 Result Diagrams: 08/12/16 06:43 08/11/16 06:33 Additional Lab and Data: . Microbiology and Other Data: Microbiology 08/05/16 16:20 Nasal Screen MRSA (PCR)(MARIS) - Final Nasal Mrsa Negative Assess/Plan/Problems-Billing Mr Valdovinos is a 76 yo M s/p laparotomy and lysis of adhesions for SBO who developed post operative pneumonia. - Patient Problems (1) Pneumonia Current Visit: Yes Status: Acute Code(s): J18.9 - PNEUMONIA, UNSPECIFIED ORGANISM SNOMED Code(s): 898692178 Comment: Today is D#5/7-he has been changed to oral levaquin. WBC count is normal and no fever since 08/09/16. (2) SBO (small bowel obstruction) Current Visit: Yes Status: Acute Code(s): K56.69 - OTHER INTESTINAL OBSTRUCTION SNOMED Code(s): 980752615 Comment: Management per Dr. Plunkett. Pt on regular diet stating he has been passing flatus and had a BM today. (3) Severe protein-calorie malnutrition Current Visit: Yes Status: Acute Priority: High Code(s): E43 - UNSPECIFIED SEVERE PROTEIN-CALORIE MALNUTRITION SNOMED Code(s): 765038375 Comment: Pt has been encouraged to eat more-he states he will try for dinner. Continue supplement shakes. (4) COPD (chronic obstructive pulmonary disease) Current Visit: Yes Status: Chronic Code(s): J44.9 - CHRONIC OBSTRUCTIVE PULMONARY DISEASE, UNSPECIFIED SNOMED Code(s): 62376386 Comment: No signs of exacerbation at this time. Continue supplemental O2 ( will likely need on d/c but will check sats tomorrow). Continue spiriva and prn nebs. (5) Tobacco abuse Current Visit: Yes Status: Acute Code(s): Z72.0 - TOBACCO USE SNOMED Code( s): 052100918 Comment: Pt has been encouraged to quit smoking. He states he is going to try when he gets home. (6) DVT prophylaxis Current Visit: Yes Status: Acute Code(s): WIB3813 - SNOMED Code(s): 602473215 Comment: SQ heparin (7) Full code status Current Visit: Yes Status: Acute Code(s): Z78.9 - OTHER SPECIFIED HEALTH STATUS SNOMED Code(s): 595418892
[2016-08-12] MEDS: Pantoprazole IV* 40 MG IV SCH (19:29)
[2016-08-13] MEDS: Albuterol/Ipratropium NEB.SOL* Albuterol 2.5 MG/Ipratropium 0.5 MG 3 ML INH PRN ×2 (00:52→07:44)
[2016-08-13] MEDS: Heparin VIAL(*) 5000 UNITS/ML VIAL (FIVE THOUSAND) SUBCUT SCH ×3 (05:35→22:32)
[2016-08-13] MEDS: Tiotropium CAP.INH* CAP.INH/18 MCG INH SCH (07:44)
[2016-08-13] MEDS: Gabapentin CAP(*) 300 MG PO SCH ×3 (10:00→20:08)
[2016-08-13] MEDS: Tamsulosin CAP* 0.4 MG PO SCH (10:00)
[2016-08-13] MEDS: Methylphenidate TAB* 5 MG PO SCH (10:00)
[2016-08-13] MEDS: Sertraline* 50 MG TAB PO SCH (10:01)
[2016-08-13] MEDS: Metoprolol Succinate XL TAB* 25 MG PO SCH (10:01)
[2016-08-13] MEDS ORDERED: Metoprolol Succinate XL TAB* 25 MG PO ONE (10:35)
--- NOTE | 2016-08-13 10:41 | PN ---
Subjective Date of Service: 08/13/16 Interval History: Pt is feeling well this AM. He has no abdominal pain. No more SOB than usual. He states he ate well for dinner last night and breakfast this AM. No BM today. Family History: Unchanged from Admission Social History: Unchanged from Admission Past Medical History: Unchanged from Admission Objective Active Medications: Acetaminophen (Tylenol Tab*) 650 mg PO Q4H PRN PRN Reason: mild pain Hydrocodone Bitart/Acetaminophen ([place] 5-325 Tab*) 2 tab PO Q4H PRN PRN Reason: PAIN Last Admin: 08/12/16 12:32 Dose: 2 tab Albuterol (Ventolin 2.5 Mg/3 Ml Neb.Kavita*) 2.5 mg INH Q2H PRN PRN Reason: SOB/WHEEZING Last Admin: 08/09/16 22:43 Dose: 2.5 mg Albuterol/Ipratropium (Duoneb (Albuterol 2.5 Mg/Ipratropium 0.5 Mg)) 1 neb INH Q4H PRN PRN Reason: SOB/WHEEZING Last Admin: 08/13/16 07:44 Dose: 1 neb Gabapentin (Neurontin Cap(*)) 300 mg PO TID [facility] Last Admin: 08/13/16 10:00 Dose: 300 mg Heparin Sodium (Porcine) (Heparin Vial(*)) 5,000 units SUBCUT Q8HR [facility] Last Admin: 08/13/16 05:35 Dose: 5,000 units Levofloxacin (Levaquin Tab*) 500 mg PO Q24H [facility] Last Admin: 08/12/16 12:46 Dose: 500 mg Methylphenidate HCl (Ritalin Tab*) 2.5 mg PO DAILY [facility] Last Admin: 08/13/16 10:00 Dose: 2.5 mg Metoprolol Succinate (Toprol Xl Tab*) 12.5 mg PO ONCE ONE Stop: 08/13/16 10:36 Metoprolol Succinate (Toprol Xl Tab*) 25 mg PO DAILY [facility] Morphine Sulfate (Morphine Inj (Syringe)*) 2 mg IV Q30M PRN PRN Reason: PAIN - MODERATE TO SEVERE Last Admin: 08/09/16 14:30 Dose: 2 mg Ondansetron HCl (Zofran Inj*) 4 mg IV Q4H PRN PRN Reason: NAUSEA Pantoprazole Sodium (Protonix Iv*) 40 mg IV 1999 [facility] Last Admin: 08/12/16 19:29 Dose: 40 mg Phenol/Menthol (Chloroseptic Throat [place]*) 1 spray MT Q4H PRN PRN Reason: SORE THROAT Last Admin: 08/04/16 23:10 Dose: 1 spray Sertraline HCl (Zoloft*) 50 mg PO DAILY [facility] Last Admin: 08/13/16 10:01 Dose: 50 mg Tamsulosin HCl (Flomax Cap*) 0.4 mg PO DAILY [facility] Last Admin: 08/13/16 10:00 Dose: 0.4 mg Tiotropium [place] (Spiriva Cap.Inh*) 1 cap INH 09 [facility] Last Admin: 08/13/16 07:44 Dose: 1 cap Vital Signs 08/12/16 08/12/16 08/12/16 11:31 12:32 14:12 Temperature 97.8 F Pulse Rate 102 Respiratory 18 20 16 Rate Blood Pressure 104/56 (mmHg) O2 Sat by Pulse 93 Oximetry 08/12/16 08/12/16 08/12/16 14:32 15:19 15:26 Temperature 98.0 F Pulse Rate 93 103 Respiratory 16 16 17 Rate Blood Pressure 113/51 (mmHg) O2 Sat by Pulse 93 93 Oximetry 08/12/16 08/12/16 08/12/16 19:07 19:29 19:37 Temperature 98.0 F Pulse Rate 100 Respiratory 16 18 18 Rate Blood Pressure 113/69 (mmHg) O2 Sat by Pulse 93 Oximetry 08/12/16 08/12/16 08/13/16 21:29 23:33 00:53 Temperature 98.0 F Pulse Rate 107 100 Respiratory 18 16 20 Rate Blood Pressure 106/51 (mmHg) O2 Sat by Pulse 92 88 Oximetry 08/13/16 08/13/16 08/13/16 03:53 07:46 07:47 Temperature 97.4 F Pulse Rate 95 101 101 Respiratory 16 16 16 Rate Blood Pressure 105/53 (mmHg) O2 Sat by Pulse 97 98 98 Oximetry 08/13/16 08/13/16 08:05 10:00 Temperature 97.5 F Pulse Rate 101 Respiratory 18 20 Rate Blood Pressure 131/58 (mmHg) O2 Sat by Pulse 98 Oximetry Oxygen Devices in Use Now: None Appearance: Elderly thin male lying in bed, NAD Eyes: No Scleral Icterus Ears/Nose/Mouth/Throat: Mucous Membranes Moist Respiratory: Symmetrical Chest Expansion and Respiratory Effort, Clear to Auscultation Cardiovascular: NL Sounds; No Murmurs; No JVD, RRR, No Edema Abdominal: - - BS+ soft, mildly distended, NT Extremities: No Clubbing, Cyanosis Skin: No Rash or Ulcers, No Nodules or Sclerosis Neurological: Alert and Oriented x 3 Result Diagrams: 08/12/16 06:43 08/11/16 06:33 Additional Lab and Data: . Microbiology and Other Data: Microbiology 08/05/16 16:20 Nasal Screen MRSA (PCR)(MARIS) - Final Nasal Mrsa Negative Assess/Plan/Problems-Billing Mr Valdovinos is a 76 yo M s/p laparotomy and lysis of adhesions for SBO who developed post operative pneumonia. - Patient Problems (1) Pneumonia Current Visit: Yes Status: Acute Code(s): J18.9 - PNEUMONIA, UNSPECIFIED ORGANISM SNOMED Code(s): 299888559 Comment: Today is D#6/7-he has been changed to oral levaquin. (2) SBO (small bowel obstruction) Current Visit: Yes Status: Acute Code(s): K56.69 - OTHER INTESTINAL OBSTRUCTION SNOMED Code(s): 156293169 Comment: Pt states he is doing well. Likely ready for home in the next 24- 36hr. Continue to monitor for flatus and BMs. (3) HTN (hypertension) Current Visit: Yes Status: Acute Code(s): I10 - ESSENTIAL (PRIMARY) HYPERTENSION SNOMED Code(s): 20776438 Comment: BP is mildly elevated but he is not on his usual dose of metoprolol XL. Resume usual dose starting tomorrow. (4) Severe protein-calorie malnutrition Current Visit: Yes Status: Acute Priority: High Code(s): E43 - UNSPECIFIED SEVERE PROTEIN-CALORIE MALNUTRITION SNOMED Code(s): 923020579 Comment: Pt is doing somewhat better eating. Continue to encourage adequate oral nutrition. Continue shakes. (5) COPD (chronic obstructive pulmonary disease) Current Visit: Yes Status: Chronic Code(s): J44.9 - CHRONIC OBSTRUCTIVE PULMONARY DISEASE, UNSPECIFIED SNOMED Code(s): 24014684 Comment: No signs of exacerbation at this time. Continue supplemental O2 ( will likely need on d/c-check O2 sats today to determine if he qualifies). Continue spiriva and prn nebs. (6) Tobacco abuse Current Visit: Yes Status: Acute Code(s): Z72.0 - TOBACCO USE SNOMED Code( s): 922076384 Comment: Pt has been encouraged to quit smoking. He states he is going to try when he gets home. (7) DVT prophylaxis Current Visit: Yes Status: Acute Code(s): XOY5524 - SNOMED Code(s): 863607388 Comment: SQ heparin (8) Full code status Current Visit: Yes Status: Acute Code(s): Z78.9 - OTHER SPECIFIED HEALTH STATUS SNOMED Code(s): 437286203
--- NOTE | 2016-08-13 11:33 | PN ---
Progress Note - Progress Note Note: Surgery Progress: S: POD #7. Cont to improve. Had BM yest. None today. Sumit diet well. Ambulating. O: Vital Signs - 8 hr 08/13/16 08/13/16 08/13/16 03:53 07:46 07:47 Temperature 97.4 F Pulse Rate 95 101 101 Respiratory 16 16 16 Rate Blood Pressure 105/53 (mmHg) O2 Sat by Pulse 97 98 98 Oximetry 08/13/16 08/13/16 08:05 10:00 Temperature 97.5 F Pulse Rate 101 Respiratory 18 20 Rate Blood Pressure 131/58 (mmHg) O2 Sat by Pulse 98 Oximetry Intake and Output Last 24 Hours 08/11/16 08/12/16 08/13/16 08/14/16 06:59 06:59 06:59 06:59 Intake Total 1713 1515 900 Output Total 900 1000 500 Balance 813 515 400 Intake: IV Fluids 15 NS (0.9%) 15 IVPB 103 260 NS (0.9%) 103 Sodium Phosphate 260 Oral 1610 1240 900 Output: Urine 900 1000 500 Other: Estimated Void Medium # Bowel Movements 0 0 0 Estimated Stool Amount Medium Medium Heart: reg Lung: scattered coarse rhonchi Abd: incision clean and dry; soft, nontender to palp Extr: trace ankle edema (as well as moderate scrotal and penile edema) A/P: s/p Ex lap, OLIVE for SBO, cont to improve. Cont diet as sumit w/ protein suppl. Postop pna (changed to po Levaquin 08/12 and will be finished w/ 08/14 dose ). He states his is having surgery today. Plan home 08/14.
[2016-08-13] MEDS: Levofloxacin TAB* 500 MG PO SCH (13:24)
[2016-08-13] MEDS: HYDROcodone/ACETAMIN 5-325 MG* 1 TAB PO PRN (13:25)
[2016-08-13] MEDS ORDERED: Atorvastatin* 10 MG TAB PO SCH (21:00)
[2016-08-14] MEDS: Heparin VIAL(*) 5000 UNITS/ML VIAL (FIVE THOUSAND) SUBCUT SCH (05:35)
[2016-08-14] MEDS ORDERED: Omeprazole CAP* 20 MG PO SCH (07:30)
[2016-08-14] MEDS: Tiotropium CAP.INH* CAP.INH/18 MCG INH SCH (07:50)
[2016-08-14] MEDS: Gabapentin CAP(*) 300 MG PO SCH (07:50)
[2016-08-14] MEDS: Tamsulosin CAP* 0.4 MG PO SCH (07:50)
[2016-08-14] MEDS: Methylphenidate TAB* 5 MG PO SCH (07:50)
[2016-08-14] MEDS: Sertraline* 50 MG TAB PO SCH (07:51)
[2016-08-14] MEDS ORDERED: Metoprolol Succinate XL TAB* 25 MG PO SCH (09:00)
[2016-08-14] MEDS ORDERED: Aspirin EC Low Dose* 81 MG TAB.EC PO SCH (09:00)
--- NOTE | 2016-08-14 12:10 | PN ---
Progress Note - Progress Note Note: S: POD #9. Day #7/ Levaquin. cont to do well. Wilmer diet. +BM. Pain well- controlled. O: Vital Signs - 8 hr 08/14/16 08/14/16 08/14/16 07:21 07:50 08:00 Temperature 98.0 F Pulse Rate 96 Respiratory 20 18 18 Rate Blood Pressure 123/68 (mmHg) O2 Sat by Pulse 94 97 Oximetry 08/14/16 09:50 Temperature Pulse Rate Respiratory 18 Rate Blood Pressure (mmHg) O2 Sat by Pulse Oximetry Intake and Output Last 24 Hours 08/12/16 08/13/16 08/14/16 08/15/16 06:59 06:59 06:59 06:59 Intake Total 9578 870 9345 0 Output Total 1000 500 600 0 Balance 964 264 9944 0 Intake: IV Fluids 15 NS (0.9%) 15 IVPB 260 Sodium Phosphate 260 Oral 7844 271 4372 0 Output: Urine 1000 500 600 0 Other: Estimated Void Medium Medium Date of Last Bowel 08/13/2016 Movement # Bowel Movements 0 0 2 Estimated Stool Amount Medium Medium # Voids 1 Heart :reg Lung: more clear today vs past 1-2d. Abd: soft; nontender; still some soft distension/tympany Extr: still tr edema; also R forearm (previous UE DVT 2/2 PICC; upper arm is not swollen; pt will monitor) A: s/p ex lap, OLIVE for SBO, doing well; postop pna, improved P: home today; instructions reviewed; office f/u 08/21; see d/c summary
[2016-08-14 12:22] VITALS: BP 114/71
[2016-08-14] MEDS: Levofloxacin TAB* 500 MG PO SCH (12:53)
--- NOTE | 2016-08-14 22:31 | DS ---
CC: Jayy Bond MD; Surekha Trinidad NP, at [facility] * DISCHARGE SUMMARY: DATE OF ADMISSION: 08/03/16 DATE OF DISCHARGE: 08/14/16 ATTENDING PHYSICIAN: Isma Plunkett MD (DICTATED BY TISHA HANLEY) HOSPITAL COURSE: Please refer to admission history and physical from 08/03/16 for admission details. Briefly, the patient was admitted with abdominal pain and vomiting with imaging consistent with SBO. He was treated conservatively at first, but did not appear to be improving and was thus taken to the operating room on 08/05/[address] Plunkett, where he underwent exploratory laparotomy and lysis of adhesions. His postoperative course was initially uneventful. However, on postoperative day 2, he was experiencing increased shortness of breath which was felt in part due to fluid overload, but also an infiltrate had shown on his chest x- ray consistent with pneumonia. He was therefore treated initially with IV Levaquin and this was subsequently changed to oral and today he completes a 7-day course. He has been gradually improving in terms of oral intake and bowel function as well as pain control. Physical exam the morning of discharge, temperature 98 with a T- max of 99.4 in the past 24 hours. Blood pressure 123/68, pulse 85, respirations 18. Current saturation 97% on 3 L (the patient is to be checked on room air to see if he qualifies for home oxygen therapy). General: The patient appears well and in no acute distress. He is thin and has a chronically malnourished appearance. Skin: Warm and dry. Heart: Regular rate and rhythm. No murmur noted. Lungs : Clear to auscultation and fairly clear, which is an improvement over the past couple of days when coarse rhonchi were present. Abdomen: Midline incision is healing well with rosey intact. No evidence of wound infection. He is still soft and mildly distended and tympanitic, but nontender to palpation. Extremities are notable for trace edema at both feet and ankles. Some scrotal and penile edema and some apparent edema of the right forearm, which is his IV site. There is no edema of the upper extremity (he has past history of upper extremity DVT on the right secondary to PICC line; he will continue to monitor this and contact us if there is any increase in swelling to prompt an ultrasound to rule out DVT). 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 IMPRESSION: Status post exploratory laparotomy with lysis of adhesions for small bowel obstruction, improved. Postoperative pneumonia, improved ( completed a 7-day course of Levaquin). PLAN: Discharge home today. He has a followup with Dr. Plunkett in our office on 08/21/16. His discharge medications will include his usual metoprolol 25 mg once daily, aspirin 81 mg once daily, albuterol MDI p.r.n., tiotropium daily, omeprazole 20 mg daily, gabapentin 300 mg t.i.d., pravastatin 40 mg q.h.s., hydrocodone/APAP 5/325 two tablets q.4 hours p.r.n. pain, Tylenol p.r.n. pain. The patient was also encouraged to quit smoking and to maintain adequate protein intake including use of protein supplements. TISHA HANLEY [id number]/[facility] #: [id number] [place]
== END 2016-08-14 14:30 | disposition home health service (06) | DRG 335 ==
LOC: ED 00:29 → SSU 08:30 → ICU 08-05 15:44 → SSU 08-07 12:26
PROVIDERS: ADMIT Hospitalist; ATTEND Surgery
PROC: 0D9670Z Drainage of Stomach with Drainage Device, Via Natural or Artificial Opening (ICD-10-PCS; principal; 2016-08-03)
PROC: 0T9B70Z Drainage of Bladder with Drainage Device, Via Natural or Artificial Opening (ICD-10-PCS; 2016-08-03)
PROC: 0DN80ZZ Release Small Intestine, Open Approach (ICD-10-PCS; 2016-08-05)
PROC: 0DP6XUZ Removal of Feeding Device from Stomach, External Approach (ICD-10-PCS; 2016-08-06)
PROC: 0TPBX0Z Removal of Drainage Device from Bladder, External Approach (ICD-10-PCS; 2016-08-06)
DX: K56.5 Intestinal adhesions [bands] with obstruction (postinfection) (principal); J18.9 Pneumonia, unspecified organism; E43 Unspecified severe protein-calorie malnutrition; G61.0 Guillain-Barre syndrome; E88.09 Other disorders of plasma-protein metabolism, not elsewhere classified; I27.2 Other secondary pulmonary hypertension; C43.9 Malignant melanoma of skin, unspecified; E87.70 Fluid overload, unspecified; G62.9 Polyneuropathy, unspecified; Z68.1 Body mass index [BMI] 19.9 or less, adult; E78.00 Pure hypercholesterolemia, unspecified; J44.9 Chronic obstructive pulmonary disease, unspecified; K21.9 Gastro-esophageal reflux disease without esophagitis; F17.210 Nicotine dependence, cigarettes, uncomplicated; R40.2412 Glasgow coma scale score 13-15, at arrival to emergency department; F10.21 Alcohol dependence, in remission; E78.5 Hyperlipidemia, unspecified; E86.0 Dehydration; K56.7 Ileus, unspecified; R33.9 Retention of urine, unspecified; R00.0 Tachycardia, unspecified; R11.0 Nausea; Z85.118 Personal history of other malignant neoplasm of bronchus and lung; Z87.01 Personal history of pneumonia (recurrent); Z82.49 Family history of ischemic heart disease and other diseases of the circulatory system; Z85.820 Personal history of malignant melanoma of skin; Z90.2 Acquired absence of lung [part of]; Z86.718 Personal history of other venous thrombosis and embolism; Z79.82 Long term (current) use of aspirin
CPT/HCPCS: 36415; 62327; 71010; 74020; 74177; 80048; 80053; 81003; 81015; 82728; 83540; 83550; 83605; 83690; 83735; 84100; 84134; 84484; 85025; 85027; 85610; 85730; 87641; 93005; 94640; 94760; A9270-GY; J0690; J1100; J1644; J1885; J1940; J1956; J2250; J2270; J2405; J2795; J3010; Q9967